=== PATIENT | female | born 1955 | race Caucasian/White ===

== ENCOUNTER 2019-05-19 18:27 | Inpatient (IN) | payer MEDICAID, SELFPAY ==
[2019-05-19] VITALS (39 sets, daily range): BP systolic 130–170; BP diastolic 51–80; PULSE 72–84; RESP 14–19; TEMP 36.9–37; O2SAT 91–99; BMI 54.8
--- NOTE | 2019-05-19 18:38 | ED_ITS ---
Entered by Ariella Camilo, acting as scribe for Nathan Pickens DO HPI - Abdominal Pain General: Chief Complaint: Abdominal Pain Stated Complaint: ABD PAIN Time Seen by Provider: 05/19/19 18:29 Source: patient Mode of arrival: EMS Limitations: no limitations History of Present Illness: HPI narrative: 63 yo Female presents to ED with complaint of right lower quadrant pain. Pt states that this started this morning and then she drove 230 miles. Pt states that she couldn't walk or stand up straight so she called an ambulance. Pt states that she thought it might be appendicitis at first but once she thought about it, she moved more in the last few days than she has moved in the last 2 years. Pt only has pain when she moves. MD elicited complaint: abdominal pain Pertinent past history: none Onset (ago): hour(s) (this morning) Pain Consistency: constant Location: RLQ Radiation: none Exacerbating factors: movement Relieving factors: rest Associated Symptoms: Reports no associated symptoms; Denies chills, dysuria, fever(s), nausea and vomiting Review of Systems General: Reports: 10 or more systems reviewed and unremarkable except in HPI and below Const: Denies: fever, chills or body aches Eyes: Denies: change in vision, blurry vision or blind spots ENMT: Denies: throat pain, enlarged tonsils, painful swallowing, hoarseness or mouth pain Card: Denies: chest pain, palpitations, irregular heart rhythm, edema or swelling of feet/ankles Resp: Denies: shortness of breath, productive cough or non-productive cough GI: Reports: abdominal pain; Denies: nausea or vomiting : Denies: flank pain, difficulty urinating, painful urination, urinary frequency or urinary urgency Musc: Denies: neck pain, back pain, extremity pain, extremity swelling, joint pain or joint swelling Skin/Breast: Denies: rash, itching or redness Neuro: Denies: headache, numbness in extremities or weakness in extremities Endo: Denies: excessive urination, excessive thirst or tired all the time Manish/Lymph: Denies: easy bruising or easy bleeding PFSH ED PFSH: Statuses (acute, chronic, etc) shown below reflect problem list status as previously entered and may not be historically accurate Medical History (Updated 01/18/20 @ 21:06 by Nathan Pickens DO) Angina pectoris (Acute) Asthma (Acute) CAD (coronary artery disease) (Acute) Cholecystitis (Acute) Chronic back pain (Acute) Depression (Acute) Diabetes (Acute) Heart disease (Acute) HTN (hypertension) (Acute) Myocardial infarction (Acute) Surgical History History of heart artery stent (Acute) Social History Smoking and tobacco status: former smoker Physical Exam Const: COMMON NORMALS: no apparent distress, average body habitus, oriented x3, no limitations, healthy appearing, alert and well nourished HENMT: COMMON NORMALS: normocephalic, head/scalp atraumatic, hearing grossly normal bilaterally, external ears normal, EAC's normal, TM's normal bilaterally, external nose normal, nasal mucous membranes and turbinates normal, moist oral mucous membranes, oropharynx normal, dentition normal and gingiva normal HEAD & SCALP: normocephalic and atraumatic NOSE: external nose normal and nasal mucous membranes and turbinates normal EXTERNAL EAR: Yes external ears normal EXTERNAL AUDITORY CANAL: EAC's normal TYMPANIC MEMBRANE: TM's normal bilaterally Eye: COMMON NORMALS: PERRL, EOMs intact bilaterally, conjunctivae normal, no scleral icterus, no papilledema, normal visual grant by confrontation and fundi normal bilaterally CONJUNCTIVA: Yes conjunctivae normal PUPIL: Yes PERRL DIRECT OPHTHALMOSCOPY: Yes no papilledema and Yes fundi normal bilaterally Neck/C-Spine: COMMON NORMALS: full ROM, no lymphadenopathy, supple, no meningeal signs, no JVD, thyroid normal and no carotid bruits THYROID: thyroid normal Chest: COMMONS NORMALS: inspection of chest normal and palpation of chest n ormal Resp: COMMON NORMALS: normal respiratory effort, no retractions, no use of accessory muscles, clear to auscultation bilaterally and percussion normal AUSCULTATION: clear to auscultation bilaterally PERCUSSION: percussion normal Cardio: COMMON NORMALS: no JVD, regular rate, regular rhythm, S1 normal heart sound, S2 normal heart sound, no gallops, no clicks, no murmurs, no rub and peripheral pulses 2+ throughout RATE: regular rate RHYTHM: regular rhythm HEART SOUNDS: S1 normal and S2 normal PERIPHERAL PULSES: pulses 2+ t hroughout GI: COMMON NORMALS: normal to inspection, nondistended, normoactive bowel sounds, soft to palpation, non-tender, no hepatosplenomegaly, no masses and no bruits PALPATION: Yes soft and Yes no hepatosplenomegaly : COMMON NORMALS: Yes no CVA tenderness and Yes external appearance normal BLADDER/KIDNEY EXAM: Yes no CVA tenderness Back/Pelvis: COMMON NORMALS: no CVA tenderness, thoracic and lumbar spine normal to inspection, no thoracic nor lumbar tenderness, thoraco-lumbar ROM normal and straight leg raise negative bilaterally Extremity: COMMON NORMALS: normal to inspection, full ROM, normal capillary refill, no joint enlargement, no clubbing, cyanosis or edema, no calf tenderness and no pedal edema Neuro: COMMON NORMALS: oriented x3 SENSORIUM/ORIENTATION: Yes alert MENINGEAL SIGNS: Yes no meningeal signs Skin: COMMON NORMALS: no rashes or lesions noted, no wounds, skin turgor normal, no jaundice, no petechiae and no mottling GENERAL SKIN EXAM: no dom hes or lesions noted and turgor normal Course Vital Signs: Vital signs: Vital Signs Temperature 98.4 F 05/19/19 18:34 Pulse Rate 82 05/19/19 20:50 Respiratory Rate 16 05/19/19 20:50 Blood Pressure 147/59 05/19/19 20:50 Pulse Oximetry 97 05/19/19 20:50 MDM - Abdominal Pain Lab Data: Labs: Lab Results 05/19/19 05/19/19 05/19/19 Range/Units 18:54 18:54 19:25 WBC 10.0 (4.0-10.0) 10^3/ uL RBC 3.62 L (4.1-5.3) 10^6/u L Hgb 11.1 L (11.5-15.3) g/dL Hct 36.2 L (37.0-47.0) % MCV 100.0 H (81-99) fL MCH 30.7 (28.0-34.0) pg MCHC 30.7 (30.0-36.0) g/dL RDW 12.6 (12.1-15.1) % Plt Count 198 (130-400) 10^3/c mm MPV 10.0 (7.4-10.4) fL Neut % (Auto) 63.9 % Lymph % (Auto) 25.5 % [place] % (Auto) 7.6 % Eos % (Auto) 2.3 % Baso % (Auto) 0.3 % Neut # (Auto) 6.4 (1.8-7.7) 10^3/u L Lymph # (Auto) 2.6 (0.8-4.8) 10^3/u L [place] # (Auto) 0.8 (0.2-0.9) 10^3/u L Eos # (Auto) 0.2 (0.0-0.8) 10^3/u L Baso # (Auto) 0.0 (0.0-0.1) 10^3/u L Nucleated RBC % (a uto) 0 % Nucleated RBCs # 0.0 /100WBC Sodium 136 (136-145) mmol/L Potassium 4.5 (3.5-5.1) mmol/L Chloride 98 (98-107) mmol/L Carbon Dioxide 26 (22-29) mmol/L Anion Gap 16.5 (5-19) BUN 36 H (8-23) mg/dL Creatinine 1.3 H (0.5-0.9) mg/dL GFR Calculation 41.4 L (90-130) mL/min Glucose 257 H (74-106) mg/dL Calcium 9.6 (8.8-10.2) mg/Dl Total Bilirubin 0.3 (0.15-1.2) mg/dL AST 15 (0-32) U/L ALT 12 (0-33) U/L Alkaline Phosphata se 77 (35-105) IU/L Total Protein 6.9 (6.6-8.7) g/dL Albumin 3.5 (3.5-5.2) g/dL Globulin 3.4 (1.3-4.6) g/dL Urine Color Yellow (Yellow) Urine Appearance Cloudy (CLEAR) Urine pH 5 (5-7) Ur Specific Gravit y 1.020 (1.005-1.030) Urine Protein Trace (Negative) Urine Glucose (UA) 1+ (Normal) Urine Ketones 1+ H (Negative) Urine Occult Blood 3+ H (Negative) Urine Nitrate Negative (Negative) Urine Bilirubin Neg (NEGATIVE) Urine Urobilinogen Norm (Negative) mg/dL Ur Leukocyte Tiffanie ase Negative (Negative) Urine RBC 80-100 H (0-2) /hpf Urine WBC 5-10 H (0-5) /hpf Ur Squamous Epith Cells 5-10 H (0-5) Urine Bacteria 1+ H (NONE) Imaging Data ^: CT Abd/Pel: Radiologist's impression: [address] [address] [address] Scan Report Signed Patient: Brooke Whitmore #: [id number] : 6Acct#:[id number] Age/Sex: 63 / FADM Date: 05/19/19 Loc: ERRoom/Bed: Attending Dr: Ordering Provider/Ordering MD: Nathan Pickens DO Date of Service: 05/19/19 Procedure(s): CT abdomen pelvis w con* [id number] Accession Number(s): [id number] Report Number: [id number] PROCEDURE INFORMATION: Exam: CT Abdomen And Pelvis With Contrast Exam date and time: 05/19/2019 6:48 PM Age: 63 years old Clinical indication: Abdominal pain; Localized; Right lower quadrant (rlq); Prior surgery; Surgery date: 6+ months; Additional info: Rlq abd pain TECHNIQUE: Imaging protocol: Computed tomography of the abdomen and pelvis with intravenous contrast. Total DLP: 2034.47 mGy-cm Radiation optimization: All CT scans at this facility use at least one of these dose optimization techniques: automated exposure control; mA and/or kV adjustment per patient size (includes targeted exams where dose is matched to clinical indication); or iterative reconstruction. Contrast material: VISI; Contrast volume: 95 ml; Contrast route: IV; COMPARISON: [place] [id number] 06/11/2013 5:23 PM FINDINGS: Lungs: 7 mm ground-glass nodule in the posterior left lower lobe. 10 mm nodule in the lingula. 3 mm nodule in the right lower lobe. These nodules are not significantly changed. Liver: Diffuse fatty infiltration of the liver. Gallbladder and bile ducts: Normal. No calcified stones. No ductal dilation. Pancreas: Normal. No ductal dilation. Spleen: Normal. No splenomegaly. Adrenals: 2.4 cm nodule in the right adrenal gland. The left adrenal is normal. Kidneys and ureters: Chronic perinephric stranding. The kidneys are otherwise normal. Stomach and bowel: Unremarkable. No obstruction. No mucosal thickening. Appendix: The appendix is dilated with an outer diameter of up to 14 mm. Mild periappendiceal fat stranding. Intraperitoneal space: Unremarkable. No free air. No significant fluid collection. Vasculature: Unremarkable. No abdominal aortic aneurysm. Lymph nodes: Unremarkable. No enlarged lymph nodes. Bladder: Unremarkable as visualized. Reproductive: Unremarkable as visualized. Bones/joints: Unremarkable. No acute fracture. Soft tissues: Unremarkable. CT/CT abdomen pelvis w con* [id number] IMPRESSION: 1. Mild acute appendicitis. 2. Bilateral pulmonary nodules are not significantly changed since 2013 and are considered benign. 3. 2.4 cm nodule in the right adrenal gland measures slightly larger but is consistent with a benign adenoma given the low density numbers on the prior noncontrast CT. Radiation Dose CTDIVOL = (mGy): DLP = 2034.47 (mGy-cm) Dictated By:Keron Moreno Signed By:Keron MorenoSiwero Date/Time:05/19/192034 DD/ 32 Discharge Plan Discharge Clinical Impression: Acute appendicitis Qualifiers: Acute appendicitis type: unspecified acute appendicitis type Qualified Code(s): K35.80 - Unspecified acute appendicitis Condition: Fair Referrals: Rupa Price DPM [Family Provider] - Patient Instructions: Appendicitis (GEN) Coding Level of Care Code ED Analyst Microbiology Lab for Chg Fwd Exam Problem Focused The documentation recorded by the Ton rollins Carmen, accurately reflects the service I personally performed and the decisions made by Celio velásquez Donald P, DO May 19, 2019 18:27
--- NOTE | 2019-05-19 18:46 | CTR_ITS ---
PROCEDURE INFORMATION: Exam: CT Abdomen And Pelvis With Contrast Exam date and time: 05/19/2019 6:48 PM Age: 63 years old Clinical indication: Abdominal pain; Localized; Right lower quadrant (rlq); Prior surgery; Surgery date: 6+ months; Additional info: Rlq abd pain TECHNIQUE: Imaging protocol: Computed tomography of the abdomen and pelvis with intravenous contrast. Total DLP: 2034.47 mGy-cm Radiation optimization: All CT scans at this facility use at least one of these dose optimization techniques: automated exposure control; mA and/or kV adjustment per patient size (includes targeted exams where dose is matched to clinical indication); or iterative reconstruction. Contrast material: VISI; Contrast volume: 95 ml; Contrast route: IV; COMPARISON: CT Abdomen/Pelvis [facility] [id number] 06/11/2013 5:23 PM FINDINGS: Lungs: 7 mm ground-glass nodule in the posterior left lower lobe. 10 mm nodule in the lingula. 3 mm nodule in the right lower lobe. These nodules are not significantly changed. Liver: Diffuse fatty infiltration of the liver. Gallbladder and bile ducts: Normal. No calcified stones. No ductal dilation. Pancreas: Normal. No ductal dilation. Spleen: Normal. No splenomegaly. Adrenals: 2.4 cm nodule in the right adrenal gland. The left adrenal is normal. Kidneys and ureters: Chronic perinephric stranding. The kidneys are otherwise normal. Stomach and bowel: Unremarkable. No obstruction. No mucosal thickening. Appendix: The appendix is dilated with an outer diameter of up to 14 mm. Mild periappendiceal fat stranding. Intraperitoneal space: Unremarkable. No free air. No significant fluid collection. Vasculature: Unremarkable. No abdominal aortic aneurysm. Lymph nodes: Unremarkable. No enlarged lymph nodes. Bladder: Unremarkable as visualized. Reproductive: Unremarkable as visualized. Bones/joints: Unremarkable. No acute fracture. Soft tissues: Unremarkable. CT/CT abdomen pelvis w con* [id number] IMPRESSION: 1. Mild acute appendicitis. 2. Bilateral pulmonary nodules are not significantly changed since 2013 and are considered benign. 3. 2.4 cm nodule in the right adrenal gland measures slightly larger but is consistent with a benign adenoma given the low density numbers on the prior noncontrast CT. Radiation Dose CTDIVOL = (mGy): DLP = 2034.47 (mGy-cm)
[2019-05-19] MEDS: iohexol 300 mg/mL 100 mL Btl IV (18:58)
--- NOTE | 2019-05-19 19:03 | PC.NURSE ---
REPORT RECEIVED FROM ALCIDES GOMEZ AND CARE TRANSFERRED TO ALCIDES XIAO
[2019-05-19 19:20] LABS: Basophils % 0.3 %; Eosinophils # 0.2 10^3/uL (0.0-0.8); Eosinophils % 2.3 %; Hematocrit 36.2 % (37.0-47.0); Hemoglobin 11.1 g/dL (11.5-15.3); Lymphocytes # 2.6 10^3/uL (0.8-4.8); Lymphocytes % 25.5 %; Mean Corpuscular HGB Conc 30.7 g/dL (30.0-36.0); Mean Corpuscular Hemoglobin 30.7 pg (28.0-34.0); Monocytes # 0.8 10^3/uL (0.2-0.9); Monocytes % 7.6 %; Neutrophils # 6.4 10^3/uL (1.8-7.7); Neutrophils % 63.9 %; Nucleated Red Blood Cells % 0 %; Platelet Count 198 10^3/cmm (130-400); Red Blood Count 3.62 10^6/uL (4.1-5.3); Red Cell Distribution Width 12.6 % (12.1-15.1)
[2019-05-19] MEDS: sodium chloride 0.9% 500 ML IV (19:26)
[2019-05-19 19:28] LABS: Alanine Aminotransferase 12 U/L (0-33); Albumin Level 3.5 g/dL (3.5-5.2); Alkaline Phosphatase 77 IU/L (35-105); Anion Gap 16.5 (5-19); Aspartate Amino Transferase 15 U/L (0-32); Blood Urea Nitrogen 36 mg/dL (8-23); Calcium 9.6 mg/Dl (8.8-10.2); Carbon Dioxide 26 mmol/L (22-29); Chloride 98 mmol/L (98-107); Globulin 3.4 g/dL (1.3-4.6); Glomerular Filtration Rate 41.4 mL/min (90-130); Glucose 257 mg/dL (74-106); Potassium 4.5 mmol/L (3.5-5.1); Sodium 136 mmol/L (136-145); Total Bilirubin 0.3 mg/dL (0.15-1.2); Total Protein 6.9 g/dL (6.6-8.7)
[2019-05-19] MEDS: iodixanol 320 mg/mL 100mL Btl IV (19:43)
--- NOTE | 2019-05-19 19:54 | PC.NURSE ---
PATIENT TO CT
[2019-05-19 20:23] LABS: Add Urine Microscopic? YES; Bilirubin Urine Neg (NEGATIVE); Blood Urine 3+ (Negative); Glucose Urine UA 1+ (Normal); Ketones Urine 1+ (Negative); Leukocyte Esterase Urine Negative (Negative); Nitrate Urine Negative (Negative); Protein Urine Trace (Negative); Urine Appearance Cloudy (CLEAR); Urine Color Yellow (Yellow); Urobilinogen Urine Norm (Negative); pH Urine 5 (5-7)
[2019-05-19] MEDS: sodium chloride 0.9% 1,000 ML 999 ML IV (20:24)
[2019-05-19 20:25] LABS: Add Urine Culture? Yes; Bacteria Urine 1+; RBC Urine 80-100 /hpf (0-2)
[2019-05-19] MEDS: sodium chloride 0.9% 1,000 ML 125 ML IV (22:02)
--- NOTE | 2019-05-19 22:17 | P.CONIM_ITS ---
Providers/Reason For Consult Consulting Physican/Specialty*: Kristen Martino MD. Hospitalist Reason for Consult*: Medical management Attending Physician: Nando Raygoza MD History of Present Illness History of Present Illness Yuridia Whitmore is a 63 year old female with PMHx of CAD s/p stenting x 2, HTN, Hyperlipidemia, IDDM type II, CKD stage 2, Morbid obesity, Chronic back pain, JODI, Depression; presents from home with complaints of right lower quadrant pain that started earlier today. When the pain began she thought it is because she has been so active over the past 2 days as she is preparing to move out of the area and to [place] so has been moving things and visiting several of her friends; she may have strained or pulled a muscle. However, when the pain persisted she got anxious and was concerned that she might have appendicitis so presented to the ER. Patient is known to me from a previous admission in March 2019. Her work-up today shows a normal white count at 10, hemoglobin of 11.1, BUN of 36, creatinine of 1.3, blood sugar of 257, urinalysis that is indicative of dehydration and borderline for infection. She has had a CT of the abdomen and pelvis done showing mild acute appendicitis. ER physician has spoken to the surgeon on-call Dr. Raygoza and plan is for laparoscopic appendectomy tomorrow a.m. so patient will be kept n.p.o. He also recommended giving Zosyn in anticipation of the surgery. She is in some pain but not overtly uncomfortable currently while in the ER. Her vital signs have been stable. She did receive contrast for her CT of the abdomen and pelvis so we will need to closely monitor her kidney function. Appetite has been normal and her last meal was approximately 1500. She denies any fever/chills, changes in her urination or bowel habits. She has had abdominal surgery in the past consisting of a laparoscopic cholecystectomy without complication. Review of Systems Const: Reports: fatigue; Denies: fever or chills Eyes: Denies: change in vision ENMT: Reports: dry mouth Card: Denies: chest pain, swelling of feet/ankles or lightheadedness Resp: Denies: shortness of breath GI: Reports: abdominal pain (Right lower quadrant) and nausea; Denies: vomiting, vomiting blood, diarrhea or blood in stool : Denies: difficulty urinating, painful urination, urinary frequency or blood in urine Musc: Denies: back pain Skin/Breast: Denies: rash Neuro: Denies: numbness in extremities, weakness in extremities or difficulty walking Psych: Denies: anxiety Meds/Allergies Home Medications and Allergies Home Medications Medication Instructions Recorded Confirmed Type atenolol See Rx Instructions .ROUTE .COMPLEX 05/19/19 05/19/19 History famotidine 20 mg PO DAILY 05/19/19 05/19/19 History furosemide [Lasix] 40 mg PO QAM 05/19/19 05/19/19 History insulin detemir U-100 [Levemir 120 unit SUBCUT DAILY 05/19/19 05/19/19 History U-100 Insulin] insulin lispro [Humalog U-100 See Rx Instructions .ROUTE .COMPLEX 05/19/19 05/19/19 History Insulin] Allergies Allergy/AdvReac Type Severity Reaction Status Date / Time butorphanol [From Stadol] Allergy ADR-Halluci Verified 05/19/19 18:39 nating ketorolac [From Toradol] Allergy Unknown Verified 05/19/19 18:39 PFSH Acute PFSH: Statuses (acute, chronic, etc) shown below reflect problem list status as previously entered and may not be historically accurate Medical History (Updated 05/20/19 @ 02:58 by Kristen Martino MD) Angina pectoris (Acute) Asthma (Acute) CAD (coronary artery disease) (Acute) Cholecystitis (Acute) Chronic back pain (Acute) CKD (chronic kidney disease), stage II (Acute) Depression (Acute) Diabetes (Acute) Insulin-dependent HTN (hypertension) (Acute) Hyperlipidemia (Acute) Morbid obesity (Acute) Myocardial infarction (Acute) Surgical History (Updated 05/20/19 @ 02:55 by Kristen Martino MD) History of heart artery stent (Acute) Status post stenting x2 in 2017 Hx of cholecystectomy (Acute) Family History (Updated 05/20/19 @ 02:56 by Kristen Martino MD) Other CAD (coronary artery disease) Hypertension Social History (Updated 05/20/19 @ 02:56 by Kristen Martino MD) Smoking and tobacco status: former smoker Alcohol intake: never Substance/Drug Use: never Lives independently: Yes Vitals/I&O/Wt Last Vital Signs Temp 98.4 F 05/19/19 18:34 Pulse 84 05/19/19 21:35 Resp 16 05/19/19 21:35 BP 143/55 05/19/19 22:00 Pulse Ox 95 05/19/19 22:00 05/19/19 05/19/19 05/19/19 06:59 14:59 22:59 Intake Total 483.333 / 483.333 Balance 483.333 / 483.333 Weight last 48 hrs Weight 136.078 kg Physical Exam Const: COMMON NORMALS: no apparent distress and oriented x3 GENERAL APPEARANCE: cooperative and comfortable NUTRITIONAL APPEARANCE: obese morbidly obese ORIENTATION/CONSCIOUSNESS: Yes awake HENMT: COMMON NORMALS: normocephalic, head/scalp atraumatic, hearing grossly normal bilaterally and moist oral mucous membranes HEAD & SCALP: normocephalic and atraumatic Eye: COMMON NORMALS: PERRL, EOMs intact bilaterally and conjunctivae normal CONJUNCTIVA: Yes conjunctivae normal PUPIL: Yes PERRL Neck/C-Spine: COMMON NORMALS: full ROM GENERAL: Yes normal visual inspection and Yes trachea midline Resp: COMMON NORMALS: normal respiratory effort, no retractions, no use of accessory muscles and clear to auscultation bilaterally EFFORT & INSPECTION: Yes able to speak in complete sentences, Yes symmetric chest movement and No tachypneic AUSCULTATION: clear to auscultation bilaterally Cardio: COMMON NORMALS: regular rate, regular rhythm, S1 normal heart sound, S2 normal heart sound and no murmurs RATE: regular rate RHYTHM: regular rhythm HEART SOUNDS: S1 normal and S2 normal GI: COMMON NORMALS: normal to inspection, nondistended, normoactive bowel sounds and soft to palpation PALPATION: Yes soft, Yes tender Details: RLQ, No guarding, No rigid, No ascites present and No rebound tenderness present Extremity: COMMON NORMALS: normal to inspection, full ROM and no clubbing, cyanosis or edema; negative for no pedal edema Neuro: COMMON NORMALS: oriented x3, moves all extremities, no focal motor deficits and no sensory deficits noted Psych: COMMON NORMALS: mental status grossly normal, thought process normal, cooperative, affect normal and speech normal SPEECH: Yes normal speech THOUGHT PROCESS: normal thought process Skin: COMMON NORMALS: no rashes or lesions noted, no jaundice, no petechiae and no mottling GENERAL SKIN EXAM: no rashes or lesions noted A&P Assessment and plan (1) Acute appendicitis: -Evidence of acute appendicitis on imaging which correlates with patient's abdominal pain localized to the right lower quadrant -N.p.o. after midnight, OR in a.m. -Dr. Raygoza will evaluate in a.m. -IVF hydration -Antiemetics, pain control as needed -Monitor vital signs -has received Zosyn -on heparin for DVT ppx; will hold AM dose -Revised Cardiac Risk Index of 1 point which correlates with a 6% 30-day risk of , [place] or cardiac arrest. Medically cleared for lap appy. Status: Acute Qualifiers: Acute appendicitis type: unspecified acute appendicitis type Qualified Code(s): K35.80 - Unspecified acute appendicitis Code(s): K35.80 - Unspecified acute appendicitis (2) Diabetes: -has hx of IDDM type II; last A1c-8.1 -add D5 to IVF to prevent hypoglycemia while NPO -Accucheks, ISS -resume diabetic diet when appropriate Status: Acute Qualifiers: Diabetes mellitus type: type 2 Diabetes mellitus nursing home insulin use: with termite control servicer use Diabetes mellitus complication status: without complication Qualified Code(s): E11.9 - Type 2 diabetes mellitus without complications; Z79.4 - prison (current) use of insulin Code(s): E11.9 - Type 2 diabetes mellitus without complications (3) CKD (chronic kidney disease), stage II: -has known hx of CKD stage 2; baseline Cr-0.9-1.0 -monitor renal function -renally dose meds, avoid nephrotoxins Status: Acute Code(s): N18.2 - Chronic kidney disease, stage 2 (mild) (4) Morbid obesity: -BMI-55 kg/m2 Status: Acute Code(s): E66.01 - Morbid (severe) obesity due to excess calories (5) Hyperlipidemia: Status: Acute Qualifiers: Hyperlipidemia type: unspecified Qualified Code(s): E78.5 - Hyperlipidemia, unspecified Code(s): E78.5 - Hyperlipidemia, unspecified (6) HTN (hypertension): -monitor vital signs -hold oral antihypertensives for now, can use PRN hydralazine while NPO Status: Acute Qualifiers: Hypertension type: essential hypertension Qualified Code(s): I10 - Essential (primary) hypertension Code(s): I10 - Essential (primary) hypertension Additional A&P Information -hx of CAD s/p stenting x 2 (2017): Echo (2017): EF=60%, no RWMA -Chronic back pain, DJD -JODI; questionable compliance with CPAP -Depression -DVT ppx with heparin -GI ppx with Famotidine -Dispo: home -Code status: FULL code Thank you for this consult, will continue to follow along. Consult Attestations Medical Necessity Statement: Yuridia Whitmore's hospital stay will require greater than 2 midnights for management of acute appendicitis including surgical intervention and appropriate postop care. Time Spent in Patient Care: Greater than 35 minutes (>than 50% of time spent in counselling and/or direct pt care on unit) . Coding Level of Care Code Acute Packing Machine Operator for g Fwd Diagnoses Acute appendicitis K35.80 Acute appendicitis type: unspecified acute appendicitis type Diabetes E11.9; Z79.4 Diabetes mellitus type: type 2 Diabetes mellitus nursing home insulin use: with termite control servicer use Diabetes mellitus complication status: without complication CKD (chronic kidney disease), stage II N18.2 Morbid obesity E66.01 Hyperlipidemia E78.5 Hyperlipidemia type: unspecified HTN (hypertension) I10 Hypertension type: essential hypertension
--- NOTE | 2019-05-19 22:17 | PC.NURSE ---
PATIENT STATES HER PAIN IS A 0 IF SHE DOESN'T MOVE AT ALL BUT IF SHE MOVES THEN IT IS A 6
[2019-05-19 22:35] LABS: Glucose Point of Care 227 mg/dL (70-110)
[2019-05-19] MEDS: heparin 5,000 unit/mL INJ 1 mL 5000 UNIT SUBCUT (22:35)
[2019-05-19] MEDS: insulin regular-human 10 UNIT in SYRINGE 1 EACH SUBCUT (23:08)
[2019-05-19 23:33] LABS: INR 0.95 (0.8-1.2)
[2019-05-19] MEDS: dextrose 5%-sod chloride 0.45% 1,000 ML 100 ML IV (23:55)
[2019-05-19] MEDS: piperacillin-tazobactam 3.375 GM in sodium chloride 0.9% (plus) 50 ML IV (23:56)
[2019-05-19] MEDS: atenolol 50 mg Tablet 25 MG PO (23:57)
[2019-05-20] VITALS (18 sets, daily range): BP systolic 104–164; BP diastolic 51–79; PULSE 62–76; RESP 16–20; TEMP 36.3–37.1; O2SAT 92–100
[2019-05-20] MEDS: ondansetron 2 mg/ML SDV 2 mL 4 MG IVP ×3 (04:41→21:56)
[2019-05-20] MEDS: morphine 4 mg/mL SDV 1 mL IVP ×2 (04:42→21:48)
[2019-05-20 05:54] LABS: Basophils % 0.3 %; Eosinophils # 0.2 10^3/uL (0.0-0.8); Eosinophils % 3.1 %; Hematocrit 31.4 % (37.0-47.0); Hemoglobin 9.8 g/dL (11.5-15.3); Lymphocytes # 1.9 10^3/uL (0.8-4.8); Lymphocytes % 25.9 %; Mean Corpuscular HGB Conc 31.2 g/dL (30.0-36.0); Mean Corpuscular Hemoglobin 29.3 pg (28.0-34.0); Mean Platelet Volume 10.5 fL (7.4-10.4); Monocytes # 0.7 10^3/uL (0.2-0.9); Monocytes % 9.4 %; Neutrophils # 4.5 10^3/uL (1.8-7.7); Nucleated Red Blood Cells % 0 %; Platelet Count 194 10^3/cmm (130-400); Red Blood Count 3.34 10^6/uL (4.1-5.3); Red Cell Distribution Width 12.5 % (12.1-15.1); White Blood Count 7.4 10^3/uL (4.0-10.0)
--- NOTE | 2019-05-20 06:07 | PM.HP ---
Providers/Chief Complaint Admitting Physician: Nando Raygoza MD Chief Complaint: ABD PAIN History of Present Illness Chief complaint ; Abdominal pain HPI ; Yuridia Whitmore is a pleasant 63 year old female patient morbidly obese with associated medical comorbidities in the form of insulin-dependent diabetes mellitus and coronary artery disease,presented to the emergency department with history of acute onset of abdominal pain about 9:00 in the morning yesterday towards her right lower quadrant associated with nausea, as the pain got worse she came to the hospital for further evaluation, where CT scan of the abdomen and pelvis was done and showed acute appendicitis. Patient denies any other symptoms in the form of fevers chills vomiting or change in bowel habits or even dysuria spite of the fact there is some RBCs in her urine. General surgery was consulted for further evaluation and potential intervention and hospitalist service was consulted for management of her medical comorbidities preoperatively. Review of Systems Const: Denies: fever, chills, body aches or malaise Card: Denies: chest pain Resp: Denies: shortness of breath GI: Reports: abdominal pain and nausea; Denies: vomiting, difficulty swallowing, diarrhea, constipation or blood in stool Neuro: Denies: headache Psych: Denies: anxiety or depression Medications/Allergies Home Medications Medication Instructions Recorded Confirmed Last Taken Type atenolol See Rx Instructions .ROUTE .COMPLEX 05/19/19 05/19/19 05/19/19 History famotidine 20 mg PO DAILY 05/19/19 05/19/19 05/19/19 History furosemide [Lasix] 40 mg PO QAM 05/19/19 05/19/19 05/19/19 History insulin detemir U-100 [Levemir 120 unit SUBCUT DAILY 05/19/19 05/19/19 05/19/19 History U-100 Insulin] insulin lispro [Humalog U-100 See Rx Instructions .ROUTE .COMPLEX 05/19/19 05/19/19 05/19/19 History Insulin] Allergies Allergy/AdvReac Type Severity Reaction Status Date / Time butorphanol [From Stadol] Allergy ADR-Halluci Verified 05/19/19 18:39 nating ketorolac [From Toradol] Allergy Unknown Verified 05/19/19 18:39 PFSH Acute PFSH: Statuses (acute, chronic, etc) shown below reflect problem list status as previously entered and may not be historically accurate Medical History Angina pectoris (Acute) Asthma (Acute) CAD (coronary artery disease) (Acute) Cholecystitis (Acute) Chronic back pain (Acute) CKD (chronic kidney disease), stage II (Acute) Depression (Acute) Diabetes (Acute) Insulin-dependent HTN (hypertension) (Acute) Hyperlipidemia (Acute) Morbid obesity (Acute) Myocardial infarction (Acute) Surgical History History of heart artery stent (Acute) Status post stenting x2 in 2017 Hx of cholecystectomy (Acute) Family History Other CAD (coronary artery disease) Hypertension Social History Smoking and tobacco status: former smoker Alcohol intake: never Substance/Drug Use: never Lives independently: Yes Vitals/I&O/Wt Last Vital Signs Temp 97.8 F 05/20/19 03:09 Pulse 67 05/20/19 03:09 Resp 20 H 05/20/19 04:42 BP 164/77 05/20/19 03:09 Pulse Ox 95 05/20/19 03:09 05/19/19 05/19/19 05/20/19 14:59 22:59 06:59 Intake Total 483.333 / 483.333 110.1 / 593.433 Output Total 275 / 275 Balance 483.333 / 483.333 -164.9 / 318.433 Weight last 48 hrs Weight 313 lb 8 oz Weight 300 lb Physical Exam Const: COMMON NORMALS: no apparent distress and oriented x3 GENERAL APPEARANCE: cooperative ORIENTATION/CONSCIOUSNESS: Yes awake, Yes oriented to person, Yes oriented to place and Yes oriented to time HENMT: COMMON NORMALS: normocephalic HEAD & SCALP: normocephalic Eye: COMMON NORMALS: PERRL and no scleral icterus PUPIL: Yes PERRL Lymph: LYMPHATIC: no lymphadenopathy noted Chest: COMMONS NORMALS: inspection of chest normal Resp: COMMON NORMALS: normal respiratory effort and clear to auscultation bilaterally AUSCULTATION: clear to auscultation bilaterally Cardio: COMMON NORMALS: S1 normal heart sound and S2 normal heart sound; negative for no murmurs HEART SOUNDS: S1 normal and S2 normal GI: COMMON NORMALS: soft to palpation; negative for no hepatosplenomegaly INSPECTION: Yes normal to inspection PALPATION: Yes soft, No firm, Yes tender (Maximal tenderness at McBurney's point consistent with acute appendicitis) Details: RLQ, No guarding, No rigid and No no hepatosplenomegaly Neuro: COMMON NORMALS: oriented x3 SENSORIUM/ORIENTATION: Yes oriented to person, Yes oriented to place and Yes oriented to time Psych: COMMON NORMALS: mental status grossly normal Skin: COMMON NORMALS: no rashes or lesions noted GENERAL SKIN EXAM: no rashes or lesions noted Data : 05/20/19 05:05 05/19/19 18:54 A&P Assessment and plan (1) Acute appendicitis: After thorough history physical examination and reviewing the chart and images with my personal interpretion, I counseled the patient for laparoscopic appendectomy possible open today. Indications, risks, benefits and alternatives were all discussed with the patient and did agree to proceed. Informed consent per chart Zosyn 3.375 mg every 8 hours 5000 heparin subcu every 8 hours SCDs I's and O's I do appreciate hospitalist service input with regard to patient's medical management Status: Acute Qualifiers: Acute appendicitis type: unspecified acute appendicitis type Qualified Code(s): K35.80 - Unspecified acute appendicitis Code(s): K35.80 - Unspecified acute appendicitis Attestations Medical Necessity Statement*: Observation status Coding Level of Care Code Acute Marine Equipment Design Engineer for [facility] Fwd Exam Problem Focused Diagnoses Acute appendicitis K35.80 Acute appendicitis type: unspecified acute appendicitis type Time Spent (min) 15
[2019-05-20] MEDS: heparin 5,000 unit/mL INJ 1 mL 5000 UNIT SUBCUT ×2 (06:30→21:37)
[2019-05-20 06:54] LABS: Anion Gap 13.3 (5-19); Blood Urea Nitrogen 24 mg/dL (8-23); Calcium 8.6 mg/Dl (8.8-10.2); Carbon Dioxide 26 mmol/L (22-29); Chloride 104 mmol/L (98-107); Glucose 211 mg/dL (74-106); Potassium 4.3 mmol/L (3.5-5.1); Sodium 139 mmol/L (136-145)
[2019-05-20] MEDS: scopolamine 1.5 Patch 1 PATCH TRANSDERMA (07:06)
--- NOTE | 2019-05-20 07:27 | PC.NURSE ---
PREOP PT TAKEN DOWN TO SURGERY.
--- NOTE | 2019-05-20 07:39 | P.ANES_ITS ---
Pre-Anesthetic Assessment Pre-Anesthetic Assessment: Height/Weight: Height 1.57 m Weight 138.799 kg Temp Pulse Resp BP Pulse Ox 97.8 F 67 20 H 164/77 95 05/20/19 03:09 05/20/19 03:09 05/20/19 04:42 05/20/19 03:09 05/20/19 03:09 Preop Diagnosis: Acute appendicitis Proposed Procedure: Operation Date: 05/20/19 08:20 Proposed Procedures p Laparoscopic Appendectomy, poss. open(Not Applicable) - Nando Raygoza MD Was Beta Anju taken within 24 hours: Yes Last intake: Intake Last Liquid Date 05/19/19 Last Liquid Time 23:59 Last Solid Date 05/19/19 Last Solid Time 15:00 Exam: Pre-Anes Outpt Exam: alert, oriented x 3, clear to auscultation bilaterally and regular rate & rhythm CV/HEM: CV/HEM: CAD and HTN Comments: rx'd x [address] '16, stents x2, angioplasty x 1, Sinnha no changes : : Chronic renal Insufficiency Hepatic: Hepatic: Hepatitis Comments: Hepatitis A without sequale GI: Comments: acute appendicitis Metabolic: Metabolic: DM Comments: rx'd x 30 years, normally 150-200 Musc/skel: Musc/skel: Lower Back Pain Comments: right radiculopathy Anesthetic Plan: ASA status: III Anesthesia: General Meds/Allergies Current Medications: Current Medications Generic Name Dose Route Start Last Admin Trade Name Freq PRN Reason Stop Dose Admin Atenolol 25 mg 05/19/19 23:00 05/19/19 23:57 Tenormin PO 25 mg QPM KARAN Administration Furosemide 40 mg 05/20/19 06:00 05/20/19 02:56 Lasix PO Not Given QAM KARAN Heparin Sodium (Be ef Lung) 5,000 unit 05/20/19 06:30 05/20/19 06:30 Heparin SUBCUT 5,000 unit Q8H KARAN Administration Dextrose/Sodium Ch loride 1,000 mls @ 100 m ls/hr 05/19/19 22:16 05/19/19 23:55 Dextrose 5%-Sod Chloride 0.45% IV 100 mls/hr .Q10H KARAN Administration Piperacillin Sod/T azobactam 50 mls @ 12.5 mls /hr 05/19/19 23:30 05/20/19 03:43 Sod 3.375 gm/ So dium Chloride IV Infused Q8H KARAN Infusion Protocol Morphine Sulfate 4 mg 05/19/19 21:06 05/20/19 04:42 Morphine IVP 4 mg Q4H PRN Administration SEVERE PAIN Ondansetron HCl 4 mg 05/19/19 21:06 05/20/19 04:41 Zofran IVP 4 mg Q4H PRN Administration vomiting, or N/V if npo Scopolamine 1 patch 05/20/19 07:00 05/20/19 07:06 Transderm-Scop TRANSDERMA 1 patch Q3D KARAN Administration PFSH Anesthesia PFSH: Medical History Angina pectoris (Acute) Asthma (Acute) CAD (coronary artery disease) (Acute) Cholecystitis (Acute) Chronic back pain (Acute) CKD (chronic kidney disease), stage II (Acute) Depression (Acute) Diabetes (Acute) Insulin-dependent HTN (hypertension) (Acute) Hyperlipidemia (Acute) Morbid obesity (Acute) Myocardial infarction (Acute) Surgical History History of heart artery stent (Acute) Status post stenting x2 in 2017 Hx of cholecystectomy (Acute) Family History Other CAD (coronary artery disease) Hypertension Social History Smoking and tobacco status: former smoker Alcohol intake: never Substance/Drug Use: never Lives independently: Yes Data Anesthesia CBC & Chem 7: 05/20/19 05:05 05/20/19 05:56 Other Labs: Laboratory Results - last 48 hr 05/19/19 05/19/19 05/19/19 18:54 18:54 18:54 WBC 10.0 RBC 3.62 L Hgb 11.1 L Hct 36.2 L MCV 100.0 H MCH 30.7 MCHC 30.7 RDW 12.6 Plt Count 198 MPV 10.0 Neut % (Auto) 63.9 Lymph % (Auto) 25.5 [place] % (Auto) 7.6 Eos % (Auto) 2.3 Baso % (Auto) 0.3 Neut # (Auto) 6.4 Lymph # (Auto) 2.6 [place] # (Auto) 0.8 Eos # (Auto) 0.2 Baso # (Auto) 0.0 Nucleated RBC % (auto) 0 Nucleated RBCs # 0.0 PT 13.00 INR 0.95 Sodium 136 Potassium 4.5 Chloride 98 Carbon Dioxide 26 Anion Gap 16.5 BUN 36 H Creatinine 1.3 H GFR Calculation 41.4 L Glucose 257 H POC Glucose Calcium 9.6 Total Bilirubin 0.3 AST 15 ALT 12 Alkaline Phosphatase 77 Total Protein 6.9 Albumin 3.5 Globulin 3.4 Urine Color Urine Appearance Urine pH Ur Specific [place] Urine Protein Urine Glucose (UA) Urine Ketones Urine Occult Blood Urine Nitrate Urine Bilirubin Urine Urobilinogen Ur Leukocyte Esterase Urine RBC Urine WBC Ur Squamous Epith Cells Urine Bacteria 05/19/19 05/19/19 05/20/19 19:25 22:31 05:05 WBC 7.4 RBC 3.34 L Hgb 9.8 L Hct 31.4 L MCV 94.0 D MCH 29.3 MCHC 31.2 RDW 12.5 Plt Count 194 MPV 10.5 H Neut % (Auto) 61.0 Lymph % (Auto) 25.9 [place] % (Auto) 9.4 Eos % (Auto) 3.1 Baso % (Auto) 0.3 Neut # (Auto) 4.5 Lymph # (Auto) 1.9 [place] # (Auto) 0.7 Eos # (Auto) 0.2 Baso # (Auto) 0.0 Nucleated RBC % (auto) 0 Nucleated RBCs # 0.0 PT INR Sodium Potassium Chloride Carbon Dioxide Anion Gap BUN Creatinine GFR Calculation Glucose POC Glucose 227 Calcium Total Bilirubin AST ALT Alkaline Phosphatase Total Protein Albumin Globulin Urine Color [place] Urine Appearance Cloudy Urine pH 5 Ur Specific [place] 1.020 Urine Protein Trace Urine Glucose (UA) 1+ Urine Ketones 1+ H Urine Occult Blood 3+ H Urine Nitrate Negative Urine Bilirubin Neg Urine Urobilinogen Norm Ur Leukocyte Esterase Negative Urine RBC 80-100 H Urine WBC 5-10 H Ur Squamous Epith Cells 5-10 H Urine Bacteria 1+ H 05/20/19 05:56 WBC RBC Hgb Hct MCV MCH MCHC RDW Plt Count MPV Neut % (Auto) Lymph % (Auto) [place] % (Auto) Eos % (Auto) Baso % (Auto) Neut # (Auto) Lymph # (Auto) [place] # (Auto) Eos # (Auto) Baso # (Auto) Nucleated RBC % (auto) Nucleated RBCs # PT INR Sodium 139 Potassium 4.3 Chloride 104 Carbon Dioxide 26 Anion Gap 13.3 BUN 24 H Creatinine 1.0 H GFR Calculation 56.0 L Glucose 211 H POC Glucose Calcium 8.6 L Total Bilirubin AST ALT Alkaline Phosphatase Total Protein Albumin Globulin Urine Color Urine Appearance Urine pH Ur Specific [place] Urine Protein Urine Glucose (UA) Urine Ketones Urine Occult Blood Urine Nitrate Urine Bilirubin Urine Urobilinogen Ur Leukocyte Esterase Urine RBC Urine WBC Ur Squamous Epith Cells Urine Bacteria Cardiac Studies: No Data to Display
[2019-05-20] MEDS: sodium chloride 0.9% 1,000 ML 30 ML IV (08:00)
[2019-05-20] MEDS: lidocaine 2% INJ 20 mL INJECTION (08:41)
--- NOTE | 2019-05-20 09:15 | PM.OP ---
Operative Report Date of procedure: 05/21/19 Pre-op Diagnosis: Acute appendicitis Post-op diagnosis: same Post-op Diagnosis: Retrocecal acutely inflamed appendicitis without perforation Procedure Done: Laparoscopic appendectomy Specimens removed/disposition: Appendix Surgeon: Nando Raygoza Visual C Developer: Surgical guille Barraza Circulating nurse Martha Anesthesia: General (seed laboratory technician Smart) and Local Estimated blood loss (mL): 10 Complications: No immediate complication Findings: Acute retrocecal appendicitis without perforation Morbidly obese patient Condition: stable Disposition: floor Brief History: Yuridia Whitmore is a pleasant 63 year old female patient morbidly obese with associated medical comorbidities in the form of insulin-dependent diabetes mellitus and coronary artery disease,presented to the emergency department with history of acute onset of abdominal pain about 9:00 in the morning yesterday towards her right lower quadrant associated with nausea, as the pain got worse she came to the hospital for further evaluation, where CT scan of the abdomen and pelvis was done and showed acute appendicitis. Patient denies any other symptoms in the form of fevers chills vomiting or change in bowel habits or even dysuria spite of the fact there is some RBCs in her urine. General surgery was consulted for further evaluation and potential intervention and hospitalist service was consulted for management of her medical comorbidities preoperatively. After thorough history physical examination and reviewing the chart and images with my personal interpretion, I counseled the patient for laparoscopic appendectomy possible open. Indications, risks, benefits and alternatives were all discussed with the patient and did agree to proceed. Informed consent per chart Procedure: Patient after being identified in the holding area and asked to void urine, and informed consent per chart ,patient was then taken back to the OR placed in supine position got intubated by anesthesia left arm was tucked tucked ,Timeout was done verifying the patient's name/date of /planned procedure and destination after the procedure, all were in agreement., preoperative antibiotics administered per protocol. prep and drape of the abdomen was done under the usual sterile technique. Started by longitudinal skin incision supraumbilical using a Higgins trocar technique safe entry to the abdominal cavity was achieved verified by using 10 mm zero degree laparoscopy, switched to a 30? scope under direct visualization a suprapubic 5 mm trocar was inserted followed by another 5 mm trocar inserted in the left lower quadrant, I was able to position the patient in an T [place] and left side down, dissection of the retrocecal acutely inflamed appendix ,bluntly, attention was deviated to the healthy base of the appendix where I had to switch the camera to 5 mm 30? scope got introduced through the left lower quadrant and through the Higgins trocar under direct visualization a GI stapler 45 mm blue load was applied at the healthy part of the base of the appendix, and an Endoloop PDS was applied onto the mesoappendix for control , the appendix was then retrieved in an Endo Catch bag, final survey was done of the abdomen and pelvis , irrigation with warm saline and suction was obtained Final look laparoscopy was done showing no other abnormalities or injuries, there was minor oozing at the left lower quadrant trocar site, managed to apply a figure of eight 2-0 Vicryl for hemostasis, all trocars were then taken out under direct visualization and the trocar site supraumbilically was closed by 0 Vicryl sutures under direct vision using fascial closure device prior to that ,followed by skin closure using 4-0 Monocryl of all trocar site incisions. infiltration of local lidocaine 2% was done to all incision sites. Dry dressing was applied. Count was completed at the end of the procedure for instruments , sponges and instruments Patient tolerated the procedure well and was transferred to the recovery area after extubation. I was present for the whole entire procedure
--- NOTE | 2019-05-20 09:34 | SUR.PHASEI ---
0930 PATIENT TO OPS FROM OR AT THIS TIME. RR EVEN AND UNLABORED. PWD. PLACED ON SIMPLE MASK AT 8L. SPO2 97%. 3 STABS NOTED TO ABDOMEN, CLOSED WITH EXOFIN.
--- NOTE | 2019-05-20 10:16 | SUR.PHASEI ---
1000 PATIENT TO MED SURG AT THIS TIME VIA GURNEY. RR EVEN AND UNLABORED. 94% ON 3L NC. PATIENT C/O PAIN 6/10, RESTING COMFORTABLE IN BED. 3 STABS NOTED TO ABDOMEN, CDI. PATIENT C/O NAUSEA ONCE IN THE HALLWAY, ZOFRAN GIVEN BY PRIMARY MED SURG NURSE ONCE ENTERING ROOM.
[2019-05-20] MEDS: atenolol 50 mg Tablet PO (10:24)
[2019-05-20] MEDS: famotidine 20 mg Tablet PO (10:24)
[2019-05-20] MEDS: HYDROcodone-acetaminophen 5-325 mg Tablet 1 TAB PO ×2 (10:43→17:05)
[2019-05-20 11:48] LABS: Glucose Point of Care 261 mg/dL (70-110)
[2019-05-20] MEDS: famotidine 20 mg/2 mL INJ IVP (12:37)
--- NOTE | 2019-05-20 13:15 | PC.CHAP ---
Pastoral Care Encounter/Spiritual Assessment Type of Contact [x] Declined specialist managers visit [] Patient/Family/Request visit [] Outpatient visit [] Follow-up visit [] Physician referral [] Code/Alert [] Routine visit [] Staff referral [] Actively dying [] Patient sleeping [] Family support [] [] Out of room [] Palliative care [] [] Receiving care in room [] Pre-surgical visit [] Trauma [] Long length of stay [] ICU visit [] Other: Relational/Emotional Strength [] Patient feels connected with others/family/visitors/staff [] Distress [] Loneliness/isolation [] Abandonment Spirituality of Patient [] Person of Michaela [] Attends Anglican of their Michaela [] Believes in Prayer [] Reads Bible or Sikh materials [] There are Spiritual issues to be addressed Flitch Hanger Interventions [] Prayer [] Active listening [] Non-anxious presence [] Spiritual/emotional support [] Crisis/trauma care [] Spiritual counseling [] Bereavement support [] Provided bereavement packet [] Provided Bible/devotional materials [] Provided toy/stuffed animal, coloring book to patient or family member [] Completed spiritual assessment [] Provided Communion [] Anointing/[place] [] Salvation [] Other: Impact on Illness or Injury [] Angry [] Fearful [] Anxious [] Often cries [] Exhaustion [] Unable to work [] Unable to attend muslim [] Unable to walk/stand [] Unable to read [] Unable to drive [] Unable to eat/drink [] Unable to sleep [] Unable to be with family [] Other: Summary Declined Flitch Hanger visit. Time spent with patient
[2019-05-20] MEDS: dextrose 5%-sod chloride 0.45% 1,000 ML 50 ML IV (15:17)
[2019-05-20] MEDS: piperacillin-tazobactam 3.375 GM in sodium chloride 0.9% (plus) 50 ML IV (15:17)
--- NOTE | 2019-05-20 16:02 | PM.PN ---
Subjective Subjective: Interval history: History and physical reviewed in detail. Patient reports some abdominal pain after surgery but is otherwise doing well. Medications: Reviewed: Yes Vitals/I&O/Wt Last Vital Signs Temp 98.8 F 05/20/19 15:27 Pulse 68 05/20/19 15:27 Resp 18 05/20/19 15:27 BP 134/74 05/20/19 15:27 Pulse Ox 96 05/20/19 15:27 05/20/19 05/20/19 05/20/19 06:59 14:59 22:59 Intake Total 110.1 / 593.433 0 / 0 Output Total 275 / 275 225 / 225 Balance -164.9 / 318.433 -225 / -225 Weight last 48 hrs Weight 138.799 kg Weight 142.201 kg Weight 136.078 kg Physical Exam Narrative: EXAM NARRATIVE: General exam no apparent distress Cardiovascular regular in rhythm without murmur Lungs clear Abdomen is obese, surgical site without any evidence of drainage or infection Extremities no cyanosis clubbing or edema Data : 05/20/19 05:05 05/20/19 05:56 A&P Assessment and plan (1) Acute appendicitis: Postoperative day #1 status post laparoscopic appendectomy. Continuing Zosyn currently. Status: Acute Qualifiers: Acute appendicitis type: unspecified acute appendicitis type Qualified Code(s): K35.80 - Unspecified acute appendicitis Code(s): K35.80 - Unspecified acute appendicitis (2) Diabetes: Sliding scale insulin, consistent carb diet Status: Acute Qualifiers: Diabetes mellitus complication status: without complication Diabetes mellitus residential insulin use: with laborer marine terminal use Diabetes mellitus type: type 2 Qualified Code(s): E11.9 - Type 2 diabetes mellitus without complications; Z79.4 - intermediate teacher (current) use of insulin Code(s): E11.9 - Type 2 diabetes mellitus without complications (3) CKD (chronic kidney disease), stage II: Stable Status: Acute Code(s): N18.2 - Chronic kidney disease, stage 2 (mild) (4) Morbid obesity: Status: Acute Code(s): E66.01 - Morbid (severe) obesity due to excess calories (5) Hyperlipidemia: Status: Acute Qualifiers: Hyperlipidemia type: unspecified Qualified Code(s): E78.5 - Hyperlipidemia, unspecified Code(s): E78.5 - Hyperlipidemia, unspecified (6) HTN (hypertension): Resume antihypertensives Status: Acute Qualifiers: Hypertension type: essential hypertension Qualified Code(s): I10 - Essential (primary) hypertension Code(s): I10 - Essential (primary) hypertension Additional A&P Information Anemia, appears chronic on old labs Coronary artery disease Chronic back pain Obstructive sleep apnea Depression Attestations Medical Necessity Statement*: Needs continued hospital stay for IV antibiotics related to acute appendicitis Coding Level of Care Code Acute E Commerce Strategist for [facility] Fwd Diagnoses Acute appendicitis K35.80 Acute appendicitis type: unspecified acute appendicitis type Diabetes E11.9; Z79.4 Diabetes mellitus complication status: without complication Diabetes mellitus residential insulin use: with residential use Diabetes mellitus type: type 2 CKD (chronic kidney disease), stage II N18.2 Morbid obesity E66.01 Hyperlipidemia E78.5 Hyperlipidemia type: unspecified HTN (hypertension) I10 Hypertension type: essential hypertension
[2019-05-20 16:59] LABS: Glucose Point of Care 289 mg/dL (70-110)
[2019-05-20] MEDS: atenolol 50 mg Tablet 25 MG PO (19:36)
[2019-05-20] MEDS: sodium chloride 0.9% 1,000 ML 75 ML IV (19:38)
[2019-05-20 20:53] LABS: Glucose Point of Care 307 mg/dL (70-110)
[2019-05-21] VITALS (13 sets, daily range): BP systolic 106–144; BP diastolic 41–74; PULSE 63–73; RESP 16–20; TEMP 36.6–37.4; O2SAT 90–99
[2019-05-21] MEDS: piperacillin-tazobactam 3.375 GM in sodium chloride 0.9% (plus) 50 ML IV ×4 (00:24→23:17)
[2019-05-21] MEDS: HYDROcodone-acetaminophen 5-325 mg Tablet 1 TAB PO ×2 (00:24→08:03)
[2019-05-21] MEDS: famotidine 20 mg/2 mL INJ IVP ×2 (03:26→14:35)
[2019-05-21 06:30] LABS: Glucose Point of Care 256 mg/dL (70-110)
[2019-05-21 06:40] LABS: Basophils % 0.2 %; Eosinophils # 0.1 10^3/uL (0.0-0.8); Eosinophils % 1.1 %; Hematocrit 23.7 % (37.0-47.0); Hemoglobin 7.2 g/dL (11.5-15.3); Lymphocytes # 1.6 10^3/uL (0.8-4.8); Lymphocytes % 13.1 %; Mean Corpuscular HGB Conc 30.4 g/dL (30.0-36.0); Mean Corpuscular Hemoglobin 29.3 pg (28.0-34.0); Mean Corpuscular Volume 96.3 fL (81-99); Mean Platelet Volume 10.1 fL (7.4-10.4); Monocytes # 1.1 10^3/uL (0.2-0.9); Monocytes % 9.2 %; Neutrophils # 9.3 10^3/uL (1.8-7.7); Neutrophils % 75.7 %; Nucleated Red Blood Cells % 0 %; Platelet Count 181 10^3/cmm (130-400); Red Blood Count 2.46 10^6/uL (4.1-5.3); Red Cell Distribution Width 12.4 % (12.1-15.1); White Blood Count 12.3 10^3/uL (4.0-10.0)
[2019-05-21 06:55] LABS: Blood Urea Nitrogen 30 mg/dL (8-23); Carbon Dioxide 25 mmol/L (22-29); Chloride 100 mmol/L (98-107); Glucose 245 mg/dL (74-106); Sodium 133 mmol/L (136-145)
[2019-05-21] MEDS: heparin 5,000 unit/mL INJ 1 mL 5000 UNIT SUBCUT (07:13)
[2019-05-21] MEDS: FUROsemide 40 mg Tablet PO (07:14)
--- NOTE | 2019-05-21 07:21 | PM.PN ---
Subjective Subjective: Interval history: Feels better Some issues with urination,had to in and out cath twice and nurse reported blood clott formation in urine. Vitals/I&O/Wt Last Vital Signs Temp 97.8 F 05/21/19 04:05 Pulse 63 05/21/19 04:05 Resp 18 05/21/19 04:05 BP 106/57 05/21/19 04:05 Pulse Ox 94 05/21/19 04:05 05/20/19 05/21/19 05/21/19 22:59 06:59 14:59 Intake Total 710 / 710 350 / 1060 Balance 710 / 485 350 / 835 Weight last 48 hrs Weight 306 lb Weight 313 lb 8 oz Weight 300 lb Physical Exam Const: COMMON NORMALS: no apparent distress and oriented x3 GENERAL APPEARANCE: cooperative ORIENTATION/CONSCIOUSNESS: Yes awake, Yes oriented to person, Yes oriented to place and Yes oriented to time Eye: COMMON NORMALS: PERRL and no scleral icterus PUPIL: Yes PERRL Chest: COMMONS NORMALS: inspection of chest normal Resp: COMMON NORMALS: normal respiratory effort and clear to auscultation bilaterally AUSCULTATION: clear to auscultation bilaterally Cardio: COMMON NORMALS: S1 normal heart sound and S2 normal heart sound; negative for no murmurs HEART SOUNDS: S1 normal and S2 normal GI: COMMON NORMALS: soft to palpation; negative for no hepatosplenomegaly INSPECTION: Yes normal to inspection PALPATION: Yes soft, No firm, No tender, No guarding, No rigid and No no hepatosplenomegaly Neuro: COMMON NORMALS: oriented x3 SENSORIUM/ORIENTATION: Yes oriented to person, Yes oriented to place and Yes oriented to time Psych: COMMON NORMALS: mental status grossly normal Data : 05/21/19 14:08 05/21/19 14:08 A&P Assessment and plan (1) Acute appendicitis: From surgical standpoint of view patient overall is doing well yet there is some drift in H&H we will monitor that closer and likely will have the patient to spend 1 more night in the hospital, probably heparin subcu will be stopped for now. Will defer hematuria to hospitalist service as patient may potentially have an underlying UTI We will discuss further with the hospitalist service about the thought process with that regard as patient's admission urinalysis showed RBCs in urine, also it may warrant further urology follow-up or potential intervention. Will advance patient's diet Encourage ambulation We will continue Zosyn for now due to the elevated WBC count and potential concern Status: Resolved Qualifiers: Acute appendicitis type: unspecified acute appendicitis type Qualified Code(s): K35.80 - Unspecified acute appendicitis Code(s): K35.80 - Unspecified acute appendicitis Attestations Medical Necessity Statement*: Observation Coding Level of Care Code Acute Turn Down Attendant for [facility] Exam Problem Focused Diagnoses Acute appendicitis K35.80 Acute appendicitis type: unspecified acute appendicitis type
[2019-05-21] MEDS: atenolol 50 mg Tablet PO (08:03)
[2019-05-21] MEDS: sodium chloride 0.9% 1,000 ML 75 ML IV (08:04)
--- NOTE | 2019-05-21 09:12 | PC.NURSE ---
Patient refused bath. Patient stated I can't smell myself, so I do not want a bath.
--- NOTE | 2019-05-21 10:28 | PM.SDS ---
Short Stay Summary Providers Date of Admit/Discharge: 05/23/19 Attending Provider: Nando Raygoza MD Chief Complaint: ABD PAIN HPI History of Present Illness Yuridia Whitmore is a 63 year old female presented to the emergency department where CT scan was obtained showed acute appendicitis, patient was counseled for laparoscopic appendectomy possible open and she did agree to proceed. Patient was admitted on my service and hospitalist was consulted for medical management of her medical comorbidities including type 1 diabetes mellitus. Patient was counseled for laparoscopic appendectomy possible open and she did agree to proceed, overall did well yet she was given subcu heparin due to her morbid obesity to prevent DVT, currently that caused her H&H to drop without change in her hemodynamics, the hospital service prefer to give the patient 1 unit of packed RBCs and patient maintained to be doing well. In the interim during hospitalization she had a Rivers catheter inserted and then she passed her voiding trial the following day and patient was discharged safely. Patient elected not to receive any hydrocodone was comfortable only by Tylenol Review of Systems Const: Denies: fever, chills, body aches or malaise Card: Denies: chest pain Resp: Denies: shortness of breath GI: Denies: abdominal pain, nausea, vomiting, difficulty swallowing, diarrhea, constipation or blood in stool : Reports: difficulty urinating Neuro: Denies: headache Psych: Denies: anxiety or depression Home Meds/Allergies Home Medications and Allergies Home Medications Medication Instructions Recorded Confirmed Type Humalog U-100 Insulin See Rx Instructions .ROUTE .COMPLEX 05/19/19 05/19/19 History Lasix 40 mg PO QAM 05/19/19 05/19/19 History Levemir U-100 Insulin 120 unit SUBCUT DAILY 05/19/19 05/19/19 History famotidine 20 mg PO DAILY 05/19/19 05/19/19 History Allergies Allergy/AdvReac Type Severity Reaction Status Date / Time butorphanol [From Stadol] Allergy ADR-Halluci Verified 05/19/19 18:39 nating ketorolac [From Toradol] Allergy Unknown Verified 05/19/19 18:39 PFSH Acute PFSH: Statuses (acute, chronic, etc) shown below reflect problem list status as previously entered and may not be historically accurate Medical History Angina pectoris (Acute) Asthma (Acute) CAD (coronary artery disease) (Acute) Cholecystitis (Acute) Chronic back pain (Acute) CKD (chronic kidney disease), stage II (Acute) Depression (Acute) Diabetes (Acute) HTN (hypertension) (Acute) Hyperlipidemia (Acute) Morbid obesity (Acute) Myocardial infarction (Acute) Surgical History History of heart artery stent (Acute) Status post stenting x2 in 2017 Hx of cholecystectomy (Acute) Family History Other CAD (coronary artery disease) Hypertension Social History Smoking and tobacco status: former smoker Alcohol intake: never Lives independently: Yes Vitals/I&O/Wt Last Vital Signs Temp 98.3 F 05/21/19 09:00 Pulse 73 05/21/19 09:00 Resp 19 H 05/21/19 09:00 BP 112/58 05/21/19 09:00 Pulse Ox 90 05/21/19 09:00 05/20/19 05/21/19 05/21/19 22:59 06:59 14:59 Intake Total 710 / 710 350 / 1060 1172.5 / 1172.5 Balance 710 / 485 350 / 835 1172.5 / 1172.5 Weight last 48 hrs Weight 306 lb Weight 313 lb 8 oz Weight 300 lb Physical Exam Const: COMMON NORMALS: no apparent distress and oriented x3 GENERAL APPEARANCE: cooperative ORIENTATION/CONSCIOUSNESS: Yes awake, Yes oriented to person, Yes oriented to place and Yes oriented to time HENMT: COMMON NORMALS: normocephalic HEAD & SCALP: normocephalic Eye: COMMON NORMALS: PERRL and no scleral icterus PUPIL: Yes PERRL Resp: COMMON NORMALS: normal respiratory effort and clear to auscultation bilaterally AUSCULTATION: clear to auscultation bilaterally Cardio: COMMON NORMALS: S1 normal heart sound and S2 normal heart sound; negative for no murmurs HEART SOUNDS: S1 normal and S2 normal GI: COMMON NORMALS: soft to palpation; negative for no hepatosplenomegaly INSPECTION: Yes normal to inspection PALPATION: Yes soft, No firm, No tender, No guarding, No rigid, No no hepatosplenomegaly and Yes other (Incisions are clean dry and intact) Neuro: COMMON NORMALS: oriented x3 SENSORIUM/ORIENTATION: Yes oriented to person, Yes oriented to place and Yes oriented to time Psych: COMMON NORMALS: mental status grossly normal Skin: NARRATIVE SKIN EXAM: Some ecchymotic patches were noticed at the lower part of the Hospital Course Admission Diagnoses: Acute appendicitis Discharge Summary: Overall patient is doing well, tolerating by mouth intake, stable vital signs, good urine output Patient is conscious alert oriented X3 BMI 56 Head and neck examination PERRLA no masses no cervical lymphadenopathy no jaundice Cardiac examination audible S1-S2 no murmurs no gallops no arrhythmias Chest is clear bilateral,abscence of Rhonchi or wheezes,no surgical emphysema Abdomen nontender nondistended soft no organomegaly guarding or rigidity/no signs of peritonitis Ecchymotic patches in the lower part of the SSS Data Data Completed and Pending: Completed Studies During Hospitalization Category Date Time Status CT abdomen pelvis w con* [id number] Urge nt Cat Scan 05/19/19 18:46 Completed Pending at discharge Category Date Time Status ES surgery / GI i mages Routine Exams 05/20/19 07:15 Taken Complete Blood Co unt w/Auto AM LABS Lab 05/22/19 04:00 Ordered Urine Culture Sta t Lab 05/19/19 19:25 Results Pathology: Surgic al [PTH] Routine Pth 05/20/19 09:06 Received Diagnoses at Discharge Discharge Diagnosis (1) Acute appendicitis: Status: Resolved Problem details: Plan to discharge patient home follow-up with me at surgery office in 7 to 10 days Qualifiers: Acute appendicitis type: unspecified acute appendicitis type Qualified Code(s): K35.80 - Unspecified acute appendicitis Discharge Plan Discharge Patient Disposition: Home Health Service Condition: Fair Prescriptions: New atenolol 50 mg Tablet 25 mg PO QPM 30 Days Qty: 15 RF: 0 atenolol 50 mg Tablet 50 mg PO QAM 30 Days Qty: 30 RF: 0 Continued Lasix 40 mg Tablet 40 mg PO QAM RF: 0 famotidine 20 mg Tablet 20 mg PO DAILY RF: 0 Humalog U-100 Insulin 100 unit/mL Cartridge See Rx Instructions .ROUTE .COMPLEX RF: 0 Held Levemir U-100 Insulin 100 unit/mL Solution 120 unit SUBCUT DAILY RF: 0 Hold Instructions: Resume on 05/23/19. Resume if tolerating general diet Discontinued atenolol 50 mg Tablet See Rx Instructions .ROUTE .COMPLEX RF: 0 Discharge Orders: Discharge Order (Routine); Ordered 05/21/19 Ordered By: Nando Raygoza Other Ambulatory Orders: Complete Blood Count w/Auto (Routine) Timeframe: 1 Day Location: Determined by Patient Ordered By: Kalia Esquivel Referrals: Rupa Price DPM [Family Provider] - 05/28/19 11:00 am () Nando Raygoza MD [Physician] - 05/28/19 8:15 am Kenny Massey MD [Physician] - 2 weeks (hematuria) Discharge Diet: Advance as tolerated Discharge Activity: Resume usual activity Patient Instructions: Appendicitis (GEN) Activity Restrictions/Additional Instructions: 1. Patient can shower after 48 hours from surgery 2. Remove Dermabond 7 to 10 days after surgery 3. Up and walking as tolerated 4. Do lift more than 5 pounds first 2 weeks after surgery and not more than 25 pounds 6 to 8 weeks after surgery. 5. Do not operate heavy machinery or drive while using pain medications. 6.Contact the office or return to the ER for worsening nausea vomiting fevers or chills, or noticing any redness around incision sites or discharge. 6. Advised to return to ER or contact my office if there are any signs of infection like, increasing pain, fevers, chills, redness or drainage of pus. 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
[2019-05-21 11:41] LABS: Glucose Point of Care 301 mg/dL (70-110)
[2019-05-21 14:21] LABS: Basophils % 0.2 %; Eosinophils # 0.2 10^3/uL (0.0-0.8); Eosinophils % 1.6 %; Hematocrit 23.3 % (37.0-47.0); Hemoglobin 7.1 g/dL (11.5-15.3); Lymphocytes # 2.2 10^3/uL (0.8-4.8); Mean Corpuscular HGB Conc 30.5 g/dL (30.0-36.0); Mean Corpuscular Hemoglobin 30.5 pg (28.0-34.0); Mean Platelet Volume 10.4 fL (7.4-10.4); Monocytes # 0.9 10^3/uL (0.2-0.9); Monocytes % 7.3 %; Neutrophils # 8.7 10^3/uL (1.8-7.7); Nucleated Red Blood Cells % 0 %; Platelet Count 181 10^3/cmm (130-400); Red Blood Count 2.33 10^6/uL (4.1-5.3); Red Cell Distribution Width 12.5 % (12.1-15.1); White Blood Count 12.1 10^3/uL (4.0-10.0)
[2019-05-21 14:35] LABS: Alanine Aminotransferase 20 U/L (0-33); Albumin Level 2.8 g/dL (3.5-5.2); Alkaline Phosphatase 51 IU/L (35-105); Aspartate Amino Transferase 16 U/L (0-32); Blood Urea Nitrogen 30 mg/dL (8-23); Calcium 8.1 mg/Dl (8.8-10.2); Carbon Dioxide 23 mmol/L (22-29); Chloride 98 mmol/L (98-107); Glomerular Filtration Rate 32.6 mL/min (90-130); Glucose 297 mg/dL (74-106); Sodium 130 mmol/L (136-145); Total Bilirubin 0.4 mg/dL (0.15-1.2); Total Protein 5.8 g/dL (6.6-8.7)
[2019-05-21 17:28] LABS: Glucose Point of Care 310 mg/dL (70-110)
[2019-05-21] MEDS: psyllium powder Pkt 1 PACKET PO (17:52)
[2019-05-21] MEDS: atenolol 50 mg Tablet 25 MG PO (17:53)
--- NOTE | 2019-05-21 20:08 | PM.PN ---
Subjective Subjective: Interval history: This morning patient states that she continues to have acute urinary retention, had 2 straight caths overnight, does not have a history of urinary retention, no history of UTIs, no fevers Patient states that this morning her abdomen seems more distended, has generalized tenderness, tried a general diet, feels a bit unwell after eating, no bowel movement, has not passed gas yet, Vitals/I&O/Wt Last Vital Signs Temp 98.3 F 05/21/19 15:30 Pulse 72 05/21/19 15:30 Resp 18 05/21/19 15:30 BP 132/55 05/21/19 15:30 Pulse Ox 90 05/21/19 15:30 05/21/19 05/21/19 05/21/19 06:59 14:59 22:59 Intake Total 350 / 1060 1582.5 / 1582.5 Output Total 550 / 550 Balance 350 / 835 1582.5 / 1582.5 -550 / 1032.5 Weight last 48 hrs Weight 138.799 kg Weight 142.201 kg Physical Exam Const: COMMON NORMALS: no apparent distress and oriented x3 HENMT: COMMON NORMALS: normocephalic HEAD & SCALP: normocephalic Neck/C-Spine: COMMON NORMALS: no JVD Resp: COMMON NORMALS: normal respiratory effort, no retractions, no use of accessory muscles and clear to auscultation bilaterally AUSCULTATION: clear to auscultation bilaterally Cardio: COMMON NORMALS: no JVD, regular rate, regular rhythm, S1 normal heart sound and S2 normal heart sound RATE: regular rate RHYTHM: regular rhythm HEART SOUNDS: S1 normal and S2 normal GI: COMMON NORMALS: soft to palpation INSPECTION: Yes normal to inspection, Yes abdominal distension and Yes incision AUSCULTATION: Yes hypoactive bowel sounds PALPATION: Yes soft and Yes tender (Generalized tenderness) PERCUSSION: normal to percussion Extremity: COMMON NORMALS: normal capillary refill, no clubbing, cyanosis or edema, no calf tenderness and no pedal edema Neuro: COMMON NORMALS: oriented x3 Psych: COMMON NORMALS: mental status grossly normal Urinary Catheter Management^: Rivers: Cath Placed During This Visit: no Data : 05/21/19 14:08 05/21/19 14:08 Micro: Microbiology 01/18/20 19:25 Urine Culture - Preliminary Urine,Clean Catch A&P Assessment and plan (1) Acute appendicitis: Postoperative day #2 status post laparoscopic appendectomy. Continuing Zosyn currently. 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 insulin use: with termite control servicer use Diabetes mellitus complication status: without complication Qualified Code(s): E11.9 - Type 2 diabetes mellitus without complications; Z79.4 - senior care (current) use of insulin Code(s): E11.9 - Type 2 diabetes mellitus without complications (3) CKD (chronic kidney disease), stage II: Reacting increased to 1.6, needs gentle hydration Status: Acute Code(s): N18.2 - Chronic kidney disease, stage 2 (mild) (4) Morbid obesity: Status: Acute Code(s): E66.01 - Morbid (severe) obesity due to excess calories (5) Hyperlipidemia: Status: Acute Qualifiers: Hyperlipidemia type: unspecified Qualified Code(s): E78.5 - Hyperlipidemia, unspecified Code(s): E78.5 - Hyperlipidemia, unspecified (6) HTN (hypertension): Resume antihypertensives Status: Acute Qualifiers: Hypertension type: essential hypertension Qualified Code(s): I10 - Essential (primary) hypertension Code(s): I10 - Essential (primary) hypertension (7) Acute urinary retention: -Will place Rivers catheter -Possibly secondary to anesthesia, surgery -We will try voiding trial tomorrow Status: Acute Code(s): R33.8 - Other retention of urine (8) Hematuria: -Significant hematuria on UA on admission, RBCs -Will require an outpatient follow-up with urology Status: Acute Code(s): R31.9 - Hematuria, unspecified Additional A&P Information Anemia, appears chronic on old labs Coronary artery disease Chronic back pain Obstructive sleep apnea Depression Attestations Medical Necessity Statement*: Patient requires continued hospitalization, for acute appendicitis, status post surgical intervention, acute urinary retention, continued abdominal pain Coding Level of Care Code Acute General Office Assistant for [facility] Fwd Diagnoses Acute appendicitis K35.80 Acute appendicitis type: unspecified acute appendicitis type Diabetes E11.9; Z79.4 Diabetes mellitus type: type 2 Diabetes mellitus senior care insulin use: with senior care use Diabetes mellitus complication status: without complication CKD (chronic kidney disease), stage II N18.2 Morbid obesity E66.01 Hyperlipidemia E78.5 Hyperlipidemia type: unspecified HTN (hypertension) I10 Hypertension type: essential hypertension Acute urinary retention R33.8 Hematuria R31.9
[2019-05-21 21:41] LABS: Glucose Point of Care 292 mg/dL (70-110)
[2019-05-22] VITALS (8 sets, daily range): BP systolic 103–138; BP diastolic 45–72; PULSE 68–78; RESP 18–19; TEMP 36.6–37.2; O2SAT 90–98
[2019-05-22] MEDS: sodium chloride 0.9% 100 ML 150 ML (00:35)
[2019-05-22] MEDS: sodium chloride 0.9% 1,000 ML 125 ML IV (00:36)
[2019-05-22] MEDS: famotidine 20 mg/2 mL INJ IVP (02:45)
[2019-05-22] MEDS: HYDROcodone-acetaminophen 5-325 mg Tablet 1 TAB PO (02:52)
--- NOTE | 2019-05-22 06:00 | P.PN_ITS ---
Subjective Subjective: Interval history: Patient overall feels well Received 1 unit of packed RBCs yesterday Good urine output Vitals/I&O/Wt Last Vital Signs Temp 98.1 F 05/22/19 03:39 Pulse 72 05/22/19 03:39 Resp 18 05/22/19 03:39 BP 111/63 05/22/19 03:39 Pulse Ox 98 05/22/19 03:39 05/21/19 05/21/19 05/22/19 14:59 22:59 06:59 Intake Total 1582.5 / 1582.5 1328.75 / 2911.25 350 / 3261.25 Output Total 550 / 550 1560 / 2110 Balance 1582.5 / 1582.5 778.75 / 2361.25 -1210 / 1151.25 Physical Exam Const: COMMON NORMALS: no apparent distress and oriented x3 GENERAL APPEARANCE: cooperative ORIENTATION/CONSCIOUSNESS: Yes awake, Yes oriented to person, Yes oriented to place and Yes oriented to time Eye: COMMON NORMALS: PERRL and no scleral icterus PUPIL: Yes PERRL Resp: COMMON NORMALS: normal respiratory effort and clear to auscultation bilaterally AUSCULTATION: clear to auscultation bilaterally Cardio: COMMON NORMALS: S1 normal heart sound and S2 normal heart sound; negative for no murmurs HEART SOUNDS: S1 normal and S2 normal GI: COMMON NORMALS: soft to palpation; negative for no hepatosplenomegaly INSPECTION: Yes normal to inspection and Yes other (Ecchymosis noticed in the lower part of the pannus) PALPATION: Yes soft, No firm, Yes tender (At the umbilical incision site), No guarding, No rigid, No no hepatosplenomegaly and Yes other Neuro: COMMON NORMALS: oriented x3 SENSORIUM/ORIENTATION: Yes oriented to person, Yes oriented to place and Yes oriented to time Urinary Catheter Management^: Rivers: Cath Placed During This Visit: no Data : 05/22/19 05:40 05/22/19 05:40 Micro: Microbiology 05/19/19 19:25 Urine Culture - Preliminary Urine,Clean Catch A&P Assessment and plan (1) Acute appendicitis: Awaiting a.m. labs, once patient's H&H is appropriate we will coordinate with the hospitalist service for potential discharge home today Will advance diet as tolerated Encourage ambulation with assistance Status: Resolved Qualifiers: Acute appendicitis type: unspecified acute appendicitis type Qualified Code(s): K35.80 - Unspecified acute appendicitis Code(s): K35.80 - Unspecified acute appendicitis Attestations Medical Necessity Statement*: Observation Time Spent in Patient Care: 16 - 35 minutes (>than 50% of time spent in counselling and/or direct pt care on unit) . 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
[2019-05-22 06:10] LABS: Basophils % 0.2 %; Eosinophils # 0.3 10^3/uL (0.0-0.8); Eosinophils % 2.4 %; Hematocrit 25.1 % (37.0-47.0); Hemoglobin 7.7 g/dL (11.5-15.3); Lymphocytes # 1.8 10^3/uL (0.8-4.8); Lymphocytes % 16.9 %; Mean Corpuscular HGB Conc 30.7 g/dL (30.0-36.0); Mean Corpuscular Hemoglobin 29.3 pg (28.0-34.0); Mean Corpuscular Volume 95.4 fL (81-99); Mean Platelet Volume 10.3 fL (7.4-10.4); Monocytes # 0.9 10^3/uL (0.2-0.9); Monocytes % 8.6 %; Neutrophils # 7.4 10^3/uL (1.8-7.7); Neutrophils % 70.6 %; Nucleated Red Blood Cells % 0 %; Platelet Count 167 10^3/cmm (130-400); Red Blood Count 2.63 10^6/uL (4.1-5.3); Red Cell Distribution Width 13.6 % (12.1-15.1); White Blood Count 10.4 10^3/uL (4.0-10.0)
[2019-05-22 06:31] LABS: Anion Gap 14.8 (5-19); Blood Urea Nitrogen 28 mg/dL (8-23); Calcium 8.5 mg/Dl (8.8-10.2); Carbon Dioxide 22 mmol/L (22-29); Chloride 100 mmol/L (98-107); Glucose 338 mg/dL (74-106); Potassium 4.8 mmol/L (3.5-5.1); Sodium 132 mmol/L (136-145)
[2019-05-22 06:45] LABS: Glucose Point of Care 315 mg/dL (70-110)
[2019-05-22] MEDS: piperacillin-tazobactam 3.375 GM in sodium chloride 0.9% (plus) 50 ML IV (06:49)
[2019-05-22] MEDS: atenolol 50 mg Tablet PO (08:20)
[2019-05-22] MEDS: psyllium powder Pkt 1 PACKET PO (08:27)
[2019-05-22 11:22] LABS: Glucose Point of Care 322 mg/dL (70-110)
[2019-05-22] MEDS: bisacodyl 10 mg Supp PR (13:15)
--- NOTE | 2019-05-22 13:26 | PC.NURSE ---
Discharge instructions given per physician's orders. Patient verbalized understanding and did not have any further questions.
--- NOTE | 2019-05-22 15:57 | PC.NURSE ---
Wire Stretcher confirmed Home Health has been established for the patient. No further needs identified at this time.
--- NOTE | 2019-05-22 17:08 | PM.DCS ---
Discharge Providers Date of Admission: 05/19/19 21:15 Date of Discharge: 05/22/19 Attending Provider at Admission: Nando Raygoza MD Attending Provider at Discharge: Nando Raygoza MD Diagnoses at Discharge Discharge Diagnosis (1) Acute appendicitis: Status: Resolved Qualifiers: Acute appendicitis type: unspecified acute appendicitis type Qualified Code(s): K35.80 - Unspecified acute appendicitis Reason for Visit Reason for Visit: Reason For Visit: ABD PAIN Hospital Course Discharge Summary: Yuridia Whitmore is a 63 year old female with PMHx of CAD s/p stenting x 2, HTN, Hyperlipidemia, IDDM type II, CKD stage 2, Morbid obesity, Chronic back pain, JODI, Depression; presents from home with complaints of right lower quadrant pain. Patient was admitted for acute appendicitis, received IV fluids, broad-spectrum antibiotics, Dr. Raygoza performed a laparoscopic appendectomy. The hospitalist team was consulted for medical management. Patient had a laparoscopic appendectomy on 05/21/[address] Raygoza, with postoperative findings of a retrocecal acutely inflamed appendicitis without perforation. Postoperatively, patient had a slow slow clinical progress, patients hemoglobin declined to 7.1, requiring 1 unit of PRBC. Patient was discharged home, with a close follow-up with surgery as outpatient, and instructions to recheck her hemoglobin the following day. Patient was advised if she were to have worsening abdominal pain, distention, nausea, vomiting to come back to the emergency room. Postoperatively patient had acute urinary retention, requiring Rivers placement, Rivers catheter was removed prior to discharge and she passed a voiding trial. On admission, patient's urine showed hematuria, and 80-100 RBCs per high-powered field. CT scan was unremarkable for nephrolithiasis. Patient will require an outpatient follow-up with urology for consideration for CT urogram versus cystoscopy. Physical Exam Const: COMMON NORMALS: no apparent distress and oriented x3 HENMT: COMMON NORMALS: normocephalic HEAD & SCALP: normocephalic Neck/C-Spine: COMMON NORMALS: no JVD Resp: COMMON NORMALS: normal respiratory effort, no retractions, no use of accessory muscles and clear to auscultation bilaterally AUSCULTATION: clear to auscultation bilaterally Cardio: COMMON NORMALS: no JVD, regular rate, regular rhythm, S1 normal heart sound and S2 normal heart sound RATE: regular rate RHYTHM: regular rhythm HEART SOUNDS: S1 normal and S2 normal GI: COMMON NORMALS: soft to palpation INSPECTION: Yes normal to inspection, Yes abdominal distension and Yes incision AUSCULTATION: Yes hypoactive bowel sounds PALPATION: Yes soft PERCUSSION: normal to percussion Extremity: COMMON NORMALS: normal capillary refill, no clubbing, cyanosis or edema, no calf tenderness and no pedal edema Neuro: COMMON NORMALS: oriented x3 Psych: COMMON NORMALS: mental status grossly normal Urinary Catheter Management^: Rivers: Cath Placed During This Visit: no Discharge Data Data Completed and Pending: Completed Studies During Hospitalization Category Date Time Status CT abdomen pelvis w con* [id number] Urge nt Cat Scan 05/19/19 18:46 Completed Pathology: Surgic al [PTH] Routine Pth 05/20/19 09:06 Completed Pending at discharge Category Date Time Status ES surgery / GI i mages Routine Exams 05/20/19 07:15 Taken Labs from last 24 hours 05/22/19 05/22/19 05/22/19 11:12 06:40 05:40 WBC RBC Hgb Hct MCV MCH MCHC RDW Plt Count MPV Neut % (Auto) Lymph % (Auto) [place] % (Auto) Eos % (Auto) Baso % (Auto) Neut # (Auto) Lymph # (Auto) [place] # (Auto) Eos # (Auto) Baso # (Auto) Nucleated RBC % (a uto) Nucleated RBCs # Sodium 132 L Potassium 4.8 Chloride 100 Carbon Dioxide 22 Anion Gap 14.8 BUN 28 H Creatinine 1.4 H GFR Calculation 38.0 L Glucose 338 H POC Glucose 322 315 Calcium 8.5 L Blood Type Antibody Screen Crossmatch 05/22/19 05/21/19 05/21/19 05:40 21:36 17:17 WBC 10.4 H RBC 2.63 L Hgb 7.7 L Hct 25.1 L MCV 95.4 MCH 29.3 MCHC 30.7 RDW 13.6 Plt Count 167 MPV 10.3 Neut % (Auto) 70.6 Lymph % (Auto) 16.9 [place] % (Auto) 8.6 Eos % (Auto) 2.4 Baso % (Auto) 0.2 Neut # (Auto) 7.4 Lymph # (Auto) 1.8 [place] # (Auto) 0.9 Eos # (Auto) 0.3 Baso # (Auto) 0.0 Nucleated RBC % (a uto) 0 Nucleated RBCs # 0.0 Sodium Potassium Chloride Carbon Dioxide Anion Gap BUN Creatinine GFR Calculation Glucose POC Glucose 292 310 Calcium Blood Type Antibody Screen Crossmatch 05/21/19 15:43 WBC RBC Hgb Hct MCV MCH MCHC RDW Plt Count MPV Neut % (Auto) Lymph % (Auto) [place] % (Auto) Eos % (Auto) Baso % (Auto) Neut # (Auto) Lymph # (Auto) [place] # (Auto) Eos # (Auto) Baso # (Auto) Nucleated RBC % (a uto) Nucleated RBCs # Sodium Potassium Chloride Carbon Dioxide Anion Gap BUN Creatinine GFR Calculation Glucose POC Glucose Calcium Blood Type O Negative Antibody Screen Negative Crossmatch See Detail Vitals: Last Vital Signs Temp 98.3 F 05/22/19 15:59 Pulse 78 05/22/19 15:59 Resp 18 05/22/19 15:59 BP 103/45 05/22/19 15:59 Pulse Ox 90 05/22/19 15:59 Discharge Plan Discharge Patient Disposition: Home Health Service Condition: Fair Prescriptions: New atenolol 50 mg Tablet 25 mg PO QPM 30 Days Qty: 15 RF: 0 atenolol 50 mg Tablet 50 mg PO QAM 30 Days Qty: 30 RF: 0 Continued Lasix 40 mg Tablet 40 mg PO QAM RF: 0 famotidine 20 mg Tablet 20 mg PO DAILY RF: 0 Humalog U-100 Insulin 100 unit/mL Cartridge See Rx Instructions .ROUTE .COMPLEX RF: 0 Held Levemir U-100 Insulin 100 unit/mL Solution 120 unit SUBCUT DAILY RF: 0 Hold Instructions: Resume on 05/23/19. Resume if tolerating general diet Discontinued atenolol 50 mg Tablet See Rx Instructions .ROUTE .COMPLEX RF: 0 Discharge Orders: Discharge Order (Routine); Ordered 05/21/19 Ordered By: Nando Raygoza Other Ambulatory Orders: Complete Blood Count w/Auto (Routine) Timeframe: 1 Day Location: Determined by Patient Ordered By: Kalia Esquivel Referrals: Rupa Price DPM [Family Provider] - 05/28/19 11:00 am () Nando Raygoza MD [Physician] - 05/28/19 8:15 am Kenny Massey MD [Physician] - 2 weeks (hematuria) Discharge Diet: Advance as tolerated Discharge Activity: Resume usual activity Patient Instructions: Appendicitis (GEN) Activity Restrictions/Additional Instructions: 1. Patient can shower after 48 hours from surgery 2. Remove Dermabond 7 to 10 days after surgery 3. Up and walking as tolerated 4. Do lift more than 5 pounds first 2 weeks after surgery and not more than 25 pounds 6 to 8 weeks after surgery. 5. Do not operate heavy machinery or drive while using pain medications. 6.Contact the office or return to the ER for worsening nausea vomiting fevers or chills, or noticing any redness around incision sites or discharge. 6. Advised to return to ER or contact my office if there are any signs of infection like, increasing pain, fevers, chills, redness or drainage of pus. Discharge Date/Time: 05/22/19 16:00 Discharge Attestations Time Spent in Discharge Care*: less than 30 min Quality Metrics Clinical Quality Measures During this hospital stay, did patient experience: None Coding Level of Care Code Acute Investment Executive for [facility] Diagnoses Acute appendicitis K35.80 Acute appendicitis type: unspecified acute appendicitis type
== END 2019-05-22 16:00 | disposition home health service (06) | DRG 343 ==
LOC: ER 21:06 → MEDSURG 21:33
PROVIDERS: Family Medicine; Admitting Provider Surgery; Emergency Provider Family Medicine; Family Provider Nurse Practitioner; Visit Provider Surgery
PROC: 0DTJ4ZZ Resection of Appendix, Percutaneous Endoscopic Approach (ICD-10-PCS; CPT 44970; principal; 2019-05-20 08:00)
DX: K35.80 Unspecified acute appendicitis (principal); E66.01 Morbid (severe) obesity due to excess calories; I25.10 Atherosclerotic heart disease of native coronary artery without angina pectoris; Z79.4 Long term (current) use of insulin; Z88.8 Allergy status to other drugs, medicaments and biological substances; Z79.899 Other long term (current) drug therapy; J45.909 Unspecified asthma, uncomplicated; G89.29 Other chronic pain; M54.9 Dorsalgia, unspecified; N18.2 Chronic kidney disease, stage 2 (mild); E78.5 Hyperlipidemia, unspecified; R33.8 Other retention of urine; I12.9 Hypertensive chronic kidney disease with stage 1 through stage 4 chronic kidney disease, or unspecified chronic kidney disease; E11.22 Type 2 diabetes mellitus with diabetic chronic kidney disease; D64.9 Anemia, unspecified; G47.33 Obstructive sleep apnea (adult) (pediatric); F32.9 Major depressive disorder, single episode, unspecified
CPT/HCPCS: 12345; 36415; 36416; 36430; 51702; 51798; 74177; 80048; 80053; 81003; 82962; 85025; 85610; 86850; 86900; 87086; 88304; 96372; 96375; 97161; 97530; 99283; A9270; J1644; J1815; J2001; J2270; J2405; J2543; J2704; J2710; J3010; J3490; J7030; J7040; J7799; P9016; Q9967

== ENCOUNTER 2019-05-19 18:27 | Emergency (ER) | payer MEDICAID, SELFPAY | END 2019-05-19 23:18 | disposition admitted as inpatient to this hospital (09) | LOC: ER 06-20 07:18 | PROVIDERS: Emergency Provider Family Medicine; Family Provider Nurse Practitioner; PCP Nurse Practitioner | DX: R10.31 Right lower quadrant pain (principal); K35.80 Unspecified acute appendicitis; Z87.891 Personal history of nicotine dependence; E11.9 Type 2 diabetes mellitus without complications; I10 Essential (primary) hypertension; I25.10 Atherosclerotic heart disease of native coronary artery without angina pectoris; J45.909 Unspecified asthma, uncomplicated | CPT/HCPCS: 74177; 80053; 81003; 85025; 85610; 87086; 96360; 99283; 99285; J7030; J7040; Q9967 ==

== ENCOUNTER → 2022-12-06 08:55 | Outpatient (BNVA) | payer MEDICARE, MEDICAID, SELFPAY | PROVIDERS: Visit Provider Podiatrist Foot & Ankle Surgery | DX: B35.1 Tinea unguium (principal); L85.3 Xerosis cutis; G62.9 Polyneuropathy, unspecified; N18.9 Chronic kidney disease, unspecified; M20.41 Other hammer toe(s) (acquired), right foot; M20.42 Other hammer toe(s) (acquired), left foot; E11.42 Type 2 diabetes mellitus with diabetic polyneuropathy; E11.22 Type 2 diabetes mellitus with diabetic chronic kidney disease; Z79.4 Long term (current) use of insulin | CPT/HCPCS: 11721; 99204 ==

== ENCOUNTER → 2022-12-29 15:34 | Outpatient (BNVA) | payer MEDICARE, MEDICAID, SELFPAY | PROVIDERS: Visit Provider Nurse Practitioner Family | DX: R69 Illness, unspecified (principal); R31.9 Hematuria, unspecified; N18.2 Chronic kidney disease, stage 2 (mild); R39.11 Hesitancy of micturition; L01.00 Impetigo, unspecified; S80.811A Abrasion, right lower leg, initial encounter; L08.9 Local infection of the skin and subcutaneous tissue, unspecified; R32 Unspecified urinary incontinence; S70.312A Abrasion, left thigh, initial encounter; W55.03XA Scratched by cat, initial encounter; S76.311A Strain of muscle, fascia and tendon of the posterior muscle group at thigh level, right thigh, initial encounter; X58.XXXA Exposure to other specified factors, initial encounter | CPT/HCPCS: 80053; 81000; 87086 ==

== ENCOUNTER → 2023-01-05 11:19 | Outpatient (BNVA) | payer MEDICARE, MEDICAID, SELFPAY | PROVIDERS: Visit Provider Nurse Practitioner | DX: E11.9 Type 2 diabetes mellitus without complications (principal); Z79.4 Long term (current) use of insulin; E55.9 Vitamin D deficiency, unspecified | CPT/HCPCS: 80061; 82306; 83036 ==

== ENCOUNTER → 2023-03-04 12:23 | Outpatient (BNVA) | payer MEDICARE, MEDICAID, SELFPAY | PROVIDERS: PCP Nurse Practitioner; Visit Provider Emergency Medicine | DX: N39.0 Urinary tract infection, site not specified (principal); B37.9 Candidiasis, unspecified; R30.0 Dysuria | CPT/HCPCS: 81000; 87086 ==

== ENCOUNTER 2024-07-16 10:19 | Inpatient (IN) | payer MEDICARE, SELFPAY ==
[2024-07-16] VITALS (11 sets, daily range): BP systolic 130–155; BP diastolic 52–77; PULSE 55–84; RESP 14–26; TEMP 36.6–37; O2SAT 78–98; BMI 60.5
--- NOTE | 2024-07-16 10:25 | PC.NURSE ---
PATIENT REMOVED FROM O2 FROM TRANSFER TO COT TO BED UNTIL ABLE TO JACKHAMMER SPLITTER OPERATOR TO VITALS. PATIENT O2 SATURATION 78% ON RA. PATIENT PLACED ON 4 L NC TO MAINTAIN 93%.
--- NOTE | 2024-07-16 10:45 | XRR_ITS ---
PROCEDURE INFORMATION: Exam: XR Chest Exam date and time: 07/16/2024 11:28 AM Age: 69 years old Clinical indication: Shortness of breath; Additional info: SOB TECHNIQUE: Imaging protocol: Radiologic exam of the chest. Views: 1 view. COMPARISON: CR XR chest 1V [id number] 03/15/2019 7:31 PM FINDINGS: Lungs: Mild diffuse interstitial and vascular prominence. Low lung volumes with bronchovascular crowding. Pleural spaces: Bsjcj-qj-uqcrpsvj left pleural effusion. Suspect trace right pleural effusion. No pneumothorax. Heart/Mediastinum: Bilateral hilar prominence (gypgv-maaawjw-okrt-left) likely related to pulmonary vessels rather than lymphadenopathy. Apparent cardiomegaly, accentuated by low lung volumes. Bones/joints: Unremarkable. XR/XR chest 1V portable [id number] IMPRESSION: 1. Mild interstitial pulmonary edema. Possible CHF. 2. Ljhxx-kb-kheoomyq left pleural effusion.
--- NOTE | 2024-07-16 10:46 | ECG_ITS ---
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1955 Requested By: Mariah Suazo Order Number: [id number] Kasandra MD: JESSICA ROBINS Measurements Intervals [place] Rate: 73 P: 52 AR: 209 QRS: -4 QRSD: 114 T: 50 QT: 388 QTc: 429 Interpretive Statements SINUS RHYTHM POSSIBLE ANTERIOR MYOCARDIAL INFARCTION , OF INDETERMINATE AGE [30 ms Q WAVE IN V3/V4, OR R < 0.2 mV IN V4] Compared to ECG 04/08/2017 14:59:32 Myocardial infarct finding now present First degree AV block no longer present Electronically Signed On 07-16-2024 18:13:02 CDT by JESSICA ROBINS [email or web address]
--- NOTE | 2024-07-16 10:46 | W.ED.SOB ---
HPI - SOB/Dyspnea General: Chief Complaint: Shortness of Breath/Dyspnea Stated Complaint: SOB Time Seen by Provider: 07/16/24 10:31 Source: patient Mode of arrival: EMS Limitations: no limitations History of Present Illness: HPI Narrative: Patient is a 69-year-old female with a history of multiple comorbidities including diabetes, morbid obesity with a BMI of over 60, hypertension, hyperlipidemia, obstructive sleep apnea, probable some degree of hypoventilation syndrome, CAD, and CKD who presents to the ED today via EMS complaining of dyspnea. She states 20 years ago she was instructed to start wearing bipap at night but patient could never tolerate this so she has been wearing oxygen at night. She states last month sometime she was admitted in [place] following a fall and found to have kidney disease and had a significantly elevated potassium. She feels like since that visit she has been having to wear oxygen all the time now even during the day. She does feel like her legs are swollen today. No recent illness. No cough/congestion/fevers. MD elicited complaint: shortness of breath Onset (ago): week(s) Timing: constant Severity: moderate Relieving factors: oxygen Associated symptoms: Reports no associated symptoms; Deny abdominal pain, chest congestion, chest pain, fever(s), hemoptysis, lightheadedness, nausea, palpitations, syncope or vomiting Treatment prior to arrival: oxygen Related Data Home Medications ?Medication ?Instructions ?Recorded ?Confirmed atorvastatin 40 mg tablet 1 tab PO DAILY 01/05/23 07/16/24 carvedilol 3.125 mg tablet 3.125 mg PO DAILY 01/05/23 07/16/24 aspirin 81 mg tablet,delayed 81 mg PO DAILY 02/15/23 07/16/24 release gabapentin 100 mg capsule 100 mg PO DAILY 02/15/23 07/16/24 methocarbamol 750 mg tablet 750 mg PO DAILY 02/15/23 07/16/24 amlodipine 5 mg tablet 5 mg PO DAILY 07/16/24 07/16/24 budesonide-formoterol HFA 160 1 puff inhalation DAILY 07/16/24 07/16/24 mcg-4.5 mcg/actuation aerosol inhaler insulin aspart U-100 100 unit/mL See Rx Instructions .Route .COMPLEX 07/16/24 07/16/24 (3 mL) subcutaneous pen insulin glargine 100 unit/mL (3 80 unit SUBCUT BID 07/16/24 07/16/24 mL) subcutaneous pen (Basaglar KwikPen U-100 Insulin) losartan 25 mg tablet 25 mg PO DAILY 07/16/24 07/16/24 Previous Rx's ?Medication ?Instructions ?Recorded isosorbide dinitrate 20 mg tablet 20 mg PO DAILY #30 tabs 02/15/23 propranolol 60 mg capsule,24 60 mg PO DAILY #90 caps 02/15/23 hr,extended release Allergies Allergy/AdvReac Type Severity Reaction Status Date / Time Phenothiazines Allergy Unknown Unknown Verified 03/04/23 12:19 ketorolac (From Toradol) Allergy Shuts down Verified 03/04/23 12:19 Kidneys butorphanol (From Stadol) AdvReac ADR-Halluci Verified 03/04/23 12:19 nating Review of Systems Const: Denies: fever(s), chills, body aches, fatigue or malaise Eyes: Denies: change in vision or blurry vision ENMT: Denies: throat pain, odynophagia, nasal discharge, nasal congestion or sinus pain Card: Reports: edema, swelling of feet/ankles and dyspnea on exertion; Denies: chest pain, palpitations, irregular heart rhythm, lightheadedness, syncope or pre-syncope Resp: Reports: dyspnea; Denies: productive cough, non-productive cough, wheezing, stridor, pain on inspiration, change in phlegm color, hemoptysis or chest congestion GI: Denies: abdominal pain, nausea, vomiting, heartburn or diarrhea : Denies: flank pain or dysuria Musc: Reports: extremity swelling (chronic); Denies: neck pain, back pain or joint pain Skin/Breast: Denies: rash Neuro: Denies: headache(s), numbness in extremities, weakness in extremities or sensory changes PFSH ED PFSH: Medical History (Updated 07/16/24 @ 12:20 by Cristy Perez MD) CKD (chronic kidney disease), stage II Morbid obesity Hyperlipidemia Depression Asthma HTN (hypertension) Diabetes CAD (coronary artery disease) Myocardial infarction Chronic back pain Angina pectoris Surgical History History of appendectomy Hx of cholecystectomy History of heart artery stent Status post stenting x2 in 2017 Family History Other CAD (coronary artery disease) Hypertension Social History Smoking and tobacco/nicotine status: former use of tobacco/nicotine Alcohol intake: never Substance/Drug Use: never Lives independently: Yes service: No Physical Exam Const: COMMON NORMALS: no acute distress, patient oriented x3, no limitations and alert GENERAL APPEARANCE: cooperative NUTRITIONAL APPEARANCE: obese morbidly obese (BMI 60.2) ORIENTATION/CONSCIOUSNESS: Yes awake, Yes oriented to person, Yes oriented to place and Yes oriented to time HENMT: COMMON NORMALS: normocephalic and atraumatic HEAD & SCALP: normal to inspection, normocephalic and atraumatic Neck/C-Spine: COMMON NORMALS: full ROM, no lymphadenopathy, supple, no meningeal signs and no JVD Chest: COMMONS NORMALS: normal inspection of the chest and normal palpation of entire chest wall Resp: COMMON NORMALS: normal respiratory effort AUSCULTATION: diminished lung sounds (poor inspiratory effort) bilateral Cardio: COMMON NORMALS: no JVD, regular rate and regular rhythm RATE: regular rate RHYTHM: regular rhythm GI: COMMON NORMALS: Soft to palpation and non-tender PALPATION: Yes Soft to palpation OTHER: exam limited due to body habitus; ecchymosis from receiving subq heparin during hospitalization last month : COMMON NORMALS: Yes no CVA tenderness BLADDER/KIDNEY EXAM: Yes no CVA tenderness Back/Pelvis: COMMON NORMALS: no CVA tenderness and thoracic and lumbar spine normal to inspection Extremity: COMMON NORMALS: normal to inspection GENERAL: Yes edema Neuro: COMMON NORMALS: patient oriented x3, moves all extremities, no focal motor deficits and no sensory deficits noted SENSORIUM/ORIENTATION: Yes alert, Yes oriented to person, Yes oriented to place and Yes oriented to time MENINGEAL SIGNS: Yes no meningeal signs Skin: COMMON NORMALS: no rashes or lesions noted GENERAL SKIN EXAM: no rashes or lesions noted Course Vital Signs: Vital signs: Vital Signs Temperature 97.8 F 07/16/24 10:21 Pulse Rate 63 07/16/24 11:16 Respiratory Rate 17 07/16/24 11:00 Blood Pressure 153/58 07/16/24 11:00 Pulse Oximetry 98 07/16/24 11:16 Oxygen Delivery Me thod Nasal Cannula 07/16/24 11:00 Oxygen Flow Rate 5 07/16/24 11:00 Fraction of Inspir ed Oxygen 30 07/16/24 11:16 MDM - SOB/Dyspnea Medical Decision Making Patient is a 69-year-old female with multiple comorbidities and overall fairly poor historian here with a main concern of shortness of breath. She states normally she wears oxygen at night but over the past few weeks she has been requiring it during the day. She arrived wearing 4 to 5 L of oxygen. Her ABG showing hypercapnic respiratory failure. Patient was placed on BiPAP. She clinically does appear fluid overloaded with bilateral LE edema and pulmonary edema on her CXR. She is not sure if she carries a diagnosis of congestive heart failure. She does mention at one point that she takes water pills although none listed on her medication list. Blood work here showing a potassium of 5.3. I did give her some Lasix for her swelling as well as some insulin for her elevated blood sugars (she is a known diabetic). This should help with her potassium. No EKG changes. BUN/Cr at baseline. We have requested medical records from [facility]/[place] from her most recent hospitalization there. Patient will require hospitalization. Spoke to Dr. Perez who will admit. Dr. Cartwright aware of patient and will place admit orders. Medical Records I reviewed the patient's medical records. Lab Data I reviewed the patient's lab results. 07/16/24 10:45 07/16/24 10:45 Labs/Radiology: Radiology Impressions Chest X-Ray 07/16/24 10:45 IMPRESSION: 1. Mild interstitial pulmonary edema. Possible CHF. 2. Awhkk-jq-[id number] left pleural effusion. Laboratory Results WBC 9.35 10^3/uL (3.29-11.43) 07/16/24 10:45 RBC 3.36 10^6/uL (3.85-5.65) L 07/16/24 10:45 Hgb 10.00 g/dL (11.27-16.99) L 07/16/24 10:45 Hct 32.7 % (36-47) L 07/16/24 10:45 MCV 97.3 fl (85-98) 07/16/24 10:45 MCH 29.8 pg (27-33) 07/16/24 10:45 MCHC 30.6 g/dL (30-55) 07/16/24 10:45 RDW 13.6 % (12.1-15.1) 07/16/24 10:45 Plt Count 221 10^3/cmm (157-399) 07/16/24 10:45 MPV 10.8 fL (7.4-10.4) H 07/16/24 10:45 Neut % (Auto) 73.2 % 07/16/24 10:45 Lymph % (Auto) 17.3 % 07/16/24 10:45 [place] % (Auto) 7.1 % 07/16/24 10:45 Eos % (Auto) 1.3 % 07/16/24 10:45 Baso % (Auto) 0.2 % 07/16/24 10:45 Neut # (Auto) 6.85 10^3/uL (1.8-7.7) 07/16/24 10:45 Lymph # (Auto) 1.6 10^3/uL (0.8-4.8) 07/16/24 10:45 [place] # (Auto) 0.7 10^3/uL (0.2-0.9) 07/16/24 10:45 Eos # (Auto) 0.1 10^3/uL (0.0-0.8) 07/16/24 10:45 Baso # (Auto) 0.0 10^3/uL (0.0-0.1) 07/16/24 10:45 Nucleated RBC % (auto) 0 % 07/16/24 10:45 Nucleated RBCs # 0.0 /100WBC 07/16/24 10:45 Specimen Type Arterial 07/16/24 10:45 Sample Site Radial, left 07/16/24 10:45 ABG pH 7.28 (7.35-7.45) L 07/16/24 10:45 ABG pCO2 73.0 mmHg (35-45) H* 07/16/24 10:45 ABG pO2 61.4 mmHg (80.0-100.0) L 07/16/24 10:45 ABG HCO3 34.4 mmol/L (22-26) H 07/16/24 10:45 ABG O2 Saturation 88.0 07/16/24 10:45 ABG Base Excess 6.0 mmol/L (-2.0-2.0) H 07/16/24 10:45 Jozef Test Pos 07/16/24 10:45 A-a O2 Gradient 0.2 mmHg (5-10) L 07/16/24 10:45 Hematocrit 32.0 % (37-47) L 07/16/24 10:45 Hgb O2 Saturation 85.8 % (95-100) L 07/16/24 10:45 Carboxyhemoglobin 1.5 %THgb (0.4-20.1) 07/16/24 10:45 Methemoglobin 1.0 % (0.4-1.5) 07/16/24 10:45 Total Hemoglobin 10.4 g/dL (12-16) L 07/16/24 10:45 Sodium 142.0 mmol/L (131-143) 07/16/24 10:45 Potassium 4.8 mmol/L (3.5-5.0) 07/16/24 10:45 Glucose 371.0 mg/dL (70-115) H 07/16/24 10:45 Ionized Calcium 1.3 mmol/L (1.1-1.4) 07/16/24 10:45 O2 Delivery Device Nc 07/16/24 10:45 Latin Dance Instructor ID Gd 07/16/24 10:45 Sodium 138 mmol/L (136-145) 07/16/24 10:45 Potassium 5.3 mmol/L (3.5-5.1) H 07/16/24 10:45 Chloride 100 mmol/L (98-107) 07/16/24 10:45 Carbon Dioxide 31 mmol/L (22-29) H 07/16/24 10:45 Anion Gap 12.3 (5-19) 07/16/24 10:45 BUN 39 mg/dL (8-23) H 07/16/24 10:45 Creatinine 1.3 mg/dL (0.5-0.9) H 07/16/24 10:45 GFR Calculation 40.6 mL/min (90-130) L 07/16/24 10:45 Glucose 344 mg/dL (65-115) H 07/16/24 10:45 Calculated Osmolality 309 mOsm/kg (285-295) H 07/16/24 10:45 Calcium 8.9 mg/dL (8.5-10.5) 07/16/24 10:45 Total Bilirubin 0.5 mg/dL (0.15-1.2) 07/16/24 10:45 AST 18 U/L (0-32) 07/16/24 10:45 ALT 31 U/L (0-33) 07/16/24 10:45 Alkaline Phosphatase 146 U/L (35-105) H 07/16/24 10:45 NT-Pro-B Natriuret Pep 1030 pg/mL (0-125) H 07/16/24 10:45 Total Protein 7.2 g/dL (6.6-8.7) 07/16/24 10:45 Albumin 3.6 g/dL (3.5-5.2) 07/16/24 10:45 Globulin 3.6 g/dL (1.3-4.6) 07/16/24 10:45 Procalcitonin 0.04 ng/mL (0-0.5) 07/16/24 10:45 Urine Color Yellow (Yellow) 07/16/24 10:00 Urine Appearance Clear (CLEAR) 07/16/24 10:00 Urine pH 5.0 (5-7) 07/16/24 10:00 Ur Specific [place] 1.008 (1.005-1.030) 07/16/24 10:00 Urine Protein Negative (Negative) 07/16/24 10:00 Urine Glucose (UA) Negative (Normal) 07/16/24 10:00 Urine Ketones Negative (Negative) 07/16/24 10:00 Urine Blood Negative (Negative) 07/16/24 10:00 Urine Nitrate Negative (Negative) 07/16/24 10:00 Urine Bilirubin Negative (Negative) 07/16/24 10:00 Urine Urobilinogen 0.2 mg/dL (Negative) 07/16/24 10:00 Ur Leukocyte Esterase Negative (Negative) 07/16/24 10:00 Urine RBC 0-2 /hpf (0-2) 07/16/24 10:00 Urine WBC 0-5 /hpf (0-5) 07/16/24 10:00 Ur Squamous Epith Cells 0-5 /hpf (0-5) 07/16/24 10:00 Amorphous Sediment Not Reportable 07/16/24 10:00 Urine Bacteria None seen /hpf (NONE) 07/16/24 10:00 Hyaline Casts 2.46 /lpf 07/16/24 10:00 Serum Ketones Negative (Negative) 07/16/24 10:45 All radiology interpretation(s) finalized by discharge Discharge Plan Discharge Patient Disposition: Admitted As Inpatient Clinical Impression: Morbid obesity, CKD (chronic kidney disease), stage II, Acute hypercapnic respiratory failure Diabetes Qualifiers: Diabetes mellitus type: type 2 Diabetes mellitus detention insulin use: with detention use Diabetes mellitus complication status: without complication Qualified Code(s): E11.9 - Type 2 diabetes mellitus without complications Congestive heart failure Qualifiers: Heart failure type: unspecified Heart failure chronicity: unspecified Qualified Code(s): I50.9 - Heart failure, unspecified Condition: Stable Coding Level of Care Code ED Dialysis Clinical Manager for Jodi Bah
[2024-07-16 10:52] LABS: Basophils % 0.2 %; Eosinophils # 0.1 10^3/uL (0.0-0.8); Eosinophils % 1.3 %; Hematocrit 32.7 % (36-47); Lymphocytes # 1.6 10^3/uL (0.8-4.8); Lymphocytes % 17.3 %; Mean Corpuscular HGB Conc 30.6 g/dL (30-55); Mean Corpuscular Hemoglobin 29.8 pg (27-33); Mean Corpuscular Volume 97.3 fl (85-98); Mean Platelet Volume 10.8 fL (7.4-10.4); Monocytes # 0.7 10^3/uL (0.2-0.9); Monocytes % 7.1 %; Neutrophils # 6.85 10^3/uL (1.8-7.7); Neutrophils % 73.2 %; Nucleated Red Blood Cells % 0 %; Platelet Count 221 10^3/cmm (157-399); Red Blood Count 3.36 10^6/uL (3.85-5.65); Red Cell Distribution Width 13.6 % (12.1-15.1); White Blood Count 9.35 10^3/uL (3.29-11.43)
[2024-07-16 11:04] LABS: ABG PH Result 7.28 (7.35-7.45); Alveolar-Arterial Oxygen Gradi 0.2 mmHg (5-10); Blood Gas Allen Test Pos; Blood Gas Operator Identificat GD; Blood Gas Sample Site Radial, left; Blood Gas Sample Type Arterial; Carboxyhemoglobin 1.5 %THgb (0.4-20.1); HCO3 ABG 34.4 mmol/L (22-26); HGB O2 Sat 85.8 % (95-100); Ionized Calcium Level - ABG 1.3 mmol/L (1.1-1.4); Oxygen Device NC; PO2 ABG 61.4 mmHg (80.0-100.0); Potassium Level - ABG 4.8 mmol/L (3.5-5.0); Total Hemoglobin 10.4 g/dL (12-16)
[2024-07-16 11:14] LABS: Bilirubin Urine Negative (Negative); Blood Urine Negative (Negative); Glucose Urine UA Negative (Normal); Ketones Urine Negative (Negative); Leukocyte Esterase Urine Negative (Negative); Nitrate Urine Negative (Negative); Protein Urine Negative (Negative); Specific Gravity, Urine 1.008 (1.005-1.030); Urine Appearance Clear (CLEAR); Urine Color Yellow (Yellow); Urobilinogen Urine 0.2 mg/dL (Negative)
[2024-07-16 11:19] LABS: NT Pro B Type Natriuretic Pept 1030 pg/mL (0-125); Procalcitonin 0.04 ng/mL (0-0.5)
[2024-07-16 11:20] LABS: Ketone (Acetest) Serum Negative (Negative)
[2024-07-16 11:20] LABS: Add Urine Microscopic? YES; Bacteria Urine None Seen /hpf; Hyaline Casts Urine 2.46 /lpf; RBC Urine 0-2 /hpf (0-2); Squamous Epithelial Cell Urine 0-5 /hpf (0-5); WBC Urine 0-5 /hpf (0-5)
[2024-07-16 11:30] LABS: Alanine Aminotransferase 31 U/L (0-33); Albumin Level 3.6 g/dL (3.5-5.2); Alkaline Phosphatase 146 U/L (35-105); Anion Gap 12.3 (5-19); Aspartate Amino Transferase 18 U/L (0-32); Blood Urea Nitrogen 39 mg/dL (8-23); Calcium 8.9 mg/dL (8.5-10.5); Carbon Dioxide 31 mmol/L (22-29); Chloride 100 mmol/L (98-107); Creatinine Clr Calc Pharmacy 53.8673; Globulin 3.6 g/dL (1.3-4.6); Glomerular Filtration Rate 40.6 mL/min (90-130); Glucose 344 mg/dL (65-115); Osmolality Calculated 309 mOsm/kg (285-295); Potassium 5.3 mmol/L (3.5-5.1); Sodium 138 mmol/L (136-145); Total Bilirubin 0.5 mg/dL (0.15-1.2); Total Protein 7.2 g/dL (6.6-8.7)
--- NOTE | 2024-07-16 12:06 | PM.HP ---
Providers/Chief Complaint Admitting Physician: Cristy Perez MD Primary Care Provider: Génesis Junior APN Chief Complaint: SOB History of Present Illness Yuridia Whitmore is a 69 year old female who presented to the emergency room today with chief complaint of difficulty breathing. She has a complex recent history. She lives locally in the [place] area until a couple of years ago. She moved away to [facility] to live with her cousin and did not really have much in the way of medical care during that timeframe. She did continue to get prescriptions filled through a service and had a provider that was refilling what she had been on here. From what I can gather she had run out of her medication and in June started having increasing medical problems with frequent falls incontinence and difficulty breathing. She was admitted to [facility] in [place] on June 24 after 1 of these falls. She was noted to have fluid overload and was given IV diuresis and monitored for a couple of days. At discharge she was discharged to a skilled facility in [place] and was there for couple of weeks before being discharged back to her cousin's house. That discharge was recent and after she got back to her cousin's house she continued to have increased fall risk and difficulty attending to her activities of daily living such as toileting without accidents and her cousin ended up driving her back to this area to live with her daughter and [place]. They did not bring her oxygen with her. She has been on oxygen predominantly at night for some time for treatment of sleep apnea. She had sleep study in 2017 that recommended BiPAP that she was intolerant of. She has been so short of breath the last couple of days since being without her oxygen that when she arrived at her daughter's house she started using her daughter's oxygen more. That oxygen tank ran out eventually prompting the ED visit today. Saturations at home were reported to be in the 60s. On arrival here saturations were documented in the upper 70s at 78% and she was in significant distress. Initial ABG showed 7.2 8//61/34. Calculated AA gradient was low. She was put on BiPAP therapy and given some IV diuresis and request was made for admission to medical floor. Review of chart from stay at [facility] shows the following bits of information not included above: Had some hyperkalemia on presentation and losartan was subsequently held Discharge from hospital on torsemide but reports that long-term was giving her furosemide which did not work as well. Other discharge medications included amlodipine, aspirin, atorvastatin, carvedilol, gabapentin, insulin aspartate and lantus, isosorbide dinitrate, losartan, magnesium, methocarbamol, multivitamin, and vitamin D3. Losartan was to be held until follow-up with nephrology due to hyperkalemia at presentation. Looking at available external medications history and records from [facility], she has been prescribed both carvedilol once a day as well as twice a day and also prescribed propranolol daily. I do not hav eDC list from long-term Had CT of the head that showed no acute intracranial process though did reveal mild cortical atrophy and white matter changes consistent with chronic microvascular ischemic processes Had echocardiogram that showed ejection fraction of 60% with grade 1 diastolic dysfunction mild tricuspid regurgitation and estimated right atrial pressures of 5 to 10 mmHg. No mitral or aortic stenosis or regurgitation appreciated. BNP was normal at 800. Troponins were negative. Creatinine varied from 1.15-1.8 with variation due to initiation or holding of diuresis based on available information. 06/24 was ~1.4, after diuresis to 1.15. On 07/02, was 1.8 (after pt says she did not received diuresis for a few days) Hemoglobin was 10.3 Negative urine drug screen on June 26 Was on 2L bnc at night only prior to hosptial stay At [facility] was on 3L then later 2L bnc continuos; oxygen concentrator is still in [place] Copy of records reviewed in paper chart. Presently patient is feeling better than she did on arrival but remains quite edematous and short of breath with any amount of movement. She denies any recent chest pains. She does have a history of coronary artery disease with stent placement x [address] Horvath in the LAD and RCA. She also had angioplasty of a first diagonal branch. She has not been particularly active except for when she was doing therapy at the long-term. She reports doing well with basic transfers and not having chest pain or difficulty breathing anywhere close to how bad it was today and yesterday when she was there. She indicates that her blood sugars have been more difficult to control since she was in the hospital. She does not recall her heart rate being as low as it was today previously. A Rivers catheter was placed in the emergency room. Since arrival to the floor she has had a slight pink tinge to it. Denies any blood in her urine or blood in her stools previously though reports at times having some small specks of blood on the pads in the long-term. Does still have her uterus. Does not feel that the blood-tinged that she saw was related to vaginal bleeding. Review of Systems General: Reports: Other (ROS as per HPI or as otherwise noted here) Const: Reports: change in weight (gain, increase girth); Denies: fever(s) ENMT: Denies: throat pain or nasal congestion Card: Reports: edema, lightheadedness, dyspnea on exertion and orthopnea; Denies: chest pain Resp: Reports: dyspnea and non-productive cough; Denies: pain on inspiration or hemoptysis GI: Denies: nausea or vomiting : Denies: difficulty voiding, dysuria, hematuria or vaginal bleeding Musc: Reports: back pain, extremity pain, joint pain and muscle weakness Neuro: Reports: weakness in extremities (due to edema, non focal, generalized weakness) and frequent falls Endo: Reports: other (high blood sugars lately, no recent A1c or lipid panel) Manish/Lymph: Denies: easy bruising or easy bleeding Medications/Allergies Home Medications ?Medication ?Instructions ?Recorded ?Confirmed ?Last Taken ?Type atorvastatin 40 mg tablet 1 tab PO DAILY 01/05/23 07/16/24 07/16/24 History carvedilol 3.125 mg tablet 3.125 mg PO DAILY 01/05/23 07/16/24 07/16/24 History aspirin 81 mg tablet,delayed 81 mg PO DAILY 02/15/23 07/16/24 Unknown History release gabapentin 100 mg capsule 100 mg PO DAILY 02/15/23 07/16/24 07/16/24 History isosorbide dinitrate 20 mg tablet 20 mg PO DAILY #30 tabs 02/15/23 07/16/24 07/16/24 Rx methocarbamol 750 mg tablet 750 mg PO DAILY 02/15/23 07/16/24 Unknown History propranolol 60 mg capsule,24 60 mg PO DAILY #90 caps 02/15/23 07/16/24 07/16/24 Rx hr,extended release amlodipine 5 mg tablet 5 mg PO DAILY 07/16/24 07/16/24 07/16/24 History budesonide-formoterol HFA 160 1 puff inhalation DAILY 07/16/24 07/16/24 07/16/24 History mcg-4.5 mcg/actuation aerosol inhaler insulin aspart U-100 100 unit/mL See Rx Instructions .Route .COMPLEX 07/16/24 07/16/24 Unknown History (3 mL) subcutaneous pen insulin glargine 100 unit/mL (3 80 unit SUBCUT BID 07/16/24 07/16/24 07/16/24 History mL) subcutaneous pen (Basaglar KwikPen U-100 Insulin) losartan 25 mg tablet 25 mg PO DAILY 07/16/24 07/16/24 07/16/24 History Allergies Allergy/AdvReac Type Severity Reaction Status Date / Time Phenothiazines Allergy Unknown Unknown Verified 03/04/23 12:19 ketorolac (From Toradol) Allergy Shuts down Verified 03/04/23 12:19 Kidneys butorphanol (From Stadol) AdvReac ADR-Halluci Verified 03/04/23 12:19 nating PFSH Acute PFSH: Medical History (Updated 07/16/24 @ 16:15 by Cristy Perez MD) COPD with asthma remote tobacco use History of sleep study 12/2016 Bipap recommended JODI (obstructive sleep apnea) intolerant of bipap History of echocardiogram 06/2024 [facility] in [place], [place], EF 60%, grade 1 diastolic dysfunction, no wall motion abnormalities, RAP 5-10mmHg, no /MS, mild TR Kidney stones Diabetes mellitus type 2, insulin dependent Chronic kidney disease, stage 3b Morbid obesity BMI 60 Hyperlipidemia Depression HTN (hypertension) CAD (coronary artery disease) LAD and RCA stents, angioplasty to 1st diagonal in [address] Horvath Chronic back pain Surgical History (Updated 07/16/24 @ 16:01 by Cristy Perez MD) History of colonoscopy 2018 History of D&C 2013 History of cataract surgery History of carpal tunnel surgery of right wrist History of appendectomy Hx of cholecystectomy History of heart artery stent Status post stenting x2 in 2017 Family History Other CAD (coronary artery disease) Hypertension Social History (Updated 07/16/24 @ 15:18 by Cristy Perez MD) Smoking and tobacco/nicotine status: former use of tobacco/nicotine Alcohol intake: never Substance/Drug Use: never Vitals/I&O/Wt Last Vital Signs Temp 97.8 F 07/16/24 10:21 Pulse 63 07/16/24 11:16 Resp 17 07/16/24 11:00 BP 153/58 07/16/24 11:00 Pulse Ox 98 07/16/24 11:16 O2 Del Method Nasal Cannula 07/16/24 11:00 O2 Flow Rate 5 07/16/24 11:00 FiO2 30 07/16/24 11:16 Weight last 48 hrs Weight 140.614 kg Physical Exam Narrative: Patient is awake and alert, able to provide history. Morbidly obese. Normocephalic. Extraocular movements are intact. Neck is large but supple. Lungs are remarkable for decreased breath sounds. No wheezes or rhonchi noted. Distant heart sounds, bradycardic rhythm. Capillary refill is brisk. Abdomen is soft, positive bowel sounds, nontender. Extremities 4+ edema to the abdominal area. Skin of the upper extremities is dry. Has loss of hair noted to lower extremities but not extensive stasis changes otherwise. Speech is clear, face symmetric, moves all extremities. Gait not currently assessed. Data 07/16/24 10:45 07/16/24 10:45 Other Labs: Radiology Impressions Chest X-Ray 07/16/24 10:45 IMPRESSION: 1. Mild interstitial pulmonary edema. Possible CHF. 2. [id number] left pleural effusion. Laboratory Results WBC 9.35 10^3/uL (3.29-11.43) 07/16/24 10:45 RBC 3.36 10^6/uL (3.85-5.65) L 07/16/24 10:45 Hgb 10.00 g/dL (11.27-16.99) L 07/16/24 10:45 Hct 32.7 % (36-47) L 07/16/24 10:45 MCV 97.3 fl (85-98) 07/16/24 10:45 MCH 29.8 pg (27-33) 07/16/24 10:45 MCHC 30.6 g/dL (30-55) 07/16/24 10:45 RDW 13.6 % (12.1-15.1) 07/16/24 10:45 Plt Count 221 10^3/cmm (157-399) 07/16/24 10:45 MPV 10.8 fL (7.4-10.4) H 07/16/24 10:45 Neut % (Auto) 73.2 % 07/16/24 10:45 Lymph % (Auto) 17.3 % 07/16/24 10:45 Mckean % (Auto) 7.1 % 07/16/24 10:45 Eos % (Auto) 1.3 % 07/16/24 10:45 Baso % (Auto) 0.2 % 07/16/24 10:45 Neut # (Auto) 6.85 10^3/uL (1.8-7.7) 07/16/24 10:45 Lymph # (Auto) 1.6 10^3/uL (0.8-4.8) 07/16/24 10:45 Mckean # (Auto) 0.7 10^3/uL (0.2-0.9) 07/16/24 10:45 Eos # (Auto) 0.1 10^3/uL (0.0-0.8) 07/16/24 10:45 Baso # (Auto) 0.0 10^3/uL (0.0-0.1) 07/16/24 10:45 Nucleated RBC % (auto) 0 % 07/16/24 10:45 Nucleated RBCs # 0.0 /100WBC 07/16/24 10:45 Specimen Type Arterial 07/16/24 10:45 Sample Site Radial, left 07/16/24 10:45 ABG pH 7.28 (7.35-7.45) L 07/16/24 10:45 ABG pCO2 73.0 mmHg (35-45) H* 07/16/24 10:45 ABG pO2 61.4 mmHg (80.0-100.0) L 07/16/24 10:45 ABG HCO3 34.4 mmol/L (22-26) H 07/16/24 10:45 ABG O2 Saturation 88.0 07/16/24 10:45 ABG Base Excess 6.0 mmol/L (-2.0-2.0) H 07/16/24 10:45 Jozef Test Pos 07/16/24 10:45 A-a O2 Gradient 0.2 mmHg (5-10) L 07/16/24 10:45 Hematocrit 32.0 % (37-47) L 07/16/24 10:45 Hgb O2 Saturation 85.8 % (95-100) L 07/16/24 10:45 Carboxyhemoglobin 1.5 %THgb (0.4-20.1) 07/16/24 10:45 Methemoglobin 1.0 % (0.4-1.5) 07/16/24 10:45 Total Hemoglobin 10.4 g/dL (12-16) L 07/16/24 10:45 Sodium 142.0 mmol/L (131-143) 07/16/24 10:45 Potassium 4.8 mmol/L (3.5-5.0) 07/16/24 10:45 Glucose 371.0 mg/dL (70-115) H 07/16/24 10:45 Ionized Calcium 1.3 mmol/L (1.1-1.4) 07/16/24 10:45 O2 Delivery Device Nc 07/16/24 10:45 Attorney Law Clerk ID Gd 07/16/24 10:45 Sodium 138 mmol/L (136-145) 07/16/24 10:45 Potassium 5.3 mmol/L (3.5-5.1) H 07/16/24 10:45 Chloride 100 mmol/L (98-107) 07/16/24 10:45 Carbon Dioxide 31 mmol/L (22-29) H 07/16/24 10:45 Anion Gap 12.3 (5-19) 07/16/24 10:45 BUN 39 mg/dL (8-23) H 07/16/24 10:45 Creatinine 1.3 mg/dL (0.5-0.9) H 07/16/24 10:45 GFR Calculation 40.6 mL/min (90-130) L 07/16/24 10:45 Glucose 344 mg/dL (65-115) H 07/16/24 10:45 Calculated Osmolality 309 mOsm/kg (285-295) H 07/16/24 10:45 Calcium 8.9 mg/dL (8.5-10.5) 07/16/24 10:45 Total Bilirubin 0.5 mg/dL (0.15-1.2) 07/16/24 10:45 AST 18 U/L (0-32) 07/16/24 10:45 ALT 31 U/L (0-33) 07/16/24 10:45 Alkaline Phosphatase 146 U/L (35-105) H 07/16/24 10:45 NT-Pro-B Natriuret Pep 1030 pg/mL (0-125) H 07/16/24 10:45 Total Protein 7.2 g/dL (6.6-8.7) 07/16/24 10:45 Albumin 3.6 g/dL (3.5-5.2) 07/16/24 10:45 Globulin 3.6 g/dL (1.3-4.6) 07/16/24 10:45 Procalcitonin 0.04 ng/mL (0-0.5) 07/16/24 10:45 Urine Color Yellow (Yellow) 07/16/24 10:00 Urine Appearance Clear (CLEAR) 07/16/24 10:00 Urine pH 5.0 (5-7) 07/16/24 10:00 Ur Specific [place] 1.008 (1.005-1.030) 07/16/24 10:00 Urine Protein Negative (Negative) 07/16/24 10:00 Urine Glucose (UA) Negative (Normal) 07/16/24 10:00 Urine Ketones Negative (Negative) 07/16/24 10:00 Urine Blood Negative (Negative) 07/16/24 10:00 Urine Nitrate Negative (Negative) 07/16/24 10:00 Urine Bilirubin Negative (Negative) 07/16/24 10:00 Urine Urobilinogen 0.2 mg/dL (Negative) 07/16/24 10:00 Ur Leukocyte Esterase Negative (Negative) 07/16/24 10:00 Urine RBC 0-2 /hpf (0-2) 07/16/24 10:00 Urine WBC 0-5 /hpf (0-5) 07/16/24 10:00 Ur Squamous Epith Cells 0-5 /hpf (0-5) 07/16/24 10:00 Amorphous Sediment Not Reportable 07/16/24 10:00 Urine Bacteria None seen /hpf (NONE) 07/16/24 10:00 Hyaline Casts 2.46 /lpf 07/16/24 10:00 Serum Ketones Negative (Negative) 07/16/24 10:45 A&P Assessment and plan (1) Acute respiratory failure with hypoxia and hypercapnia: Does not carry a diagnosis of chronic respiratory failure but strongly suspect that she has a degree of chronic respiratory failure related to untreated sleep apnea, obesity hypoventilation plus or minus obstructive disease from remote tobacco use. Has prescription for inhaler. No current tobacco use. Has chronic oxygen for nocturnal use but has been using during waking hours recently. Has been unable to tolerate home bipap in past. Presently with respiratory acidosis, chronic and acute, possibly due to increased oxygen use, with metabolic acidosis and alkalosis. Clinically does not appear to have acute COPD process contributing but is a consideration given history. - Continue bipap as tolerates - Oxygen therapy for a goal saturation of 90-92% currently - Diuresis - Monitor ABGs until improves or stabilizes - Breathing treatments as needed (2) Congestive heart failure: Acute on chronic diastolic CHF. Currently significantly total body volume overloaded. Presumptively assume this is due to lack of diuresis with travel back to [place] from [place] and since discharge from the hospital there. Does have a history of coronary artery disease with prior stents but does not describe unstable angina. Has limited activity however. - Diuresis - Strict I's and O's and daily weights - Continue ARB if blood pressure and renal function allow Qualifiers: Heart failure chronicity: acute on chronic Heart failure type: diastolic Qualified Code(s): I50.33 - Acute on chronic diastolic (congestive) heart failure (3) Chronic kidney disease, stage 3b: Baseline creatinine around 1.4 per available records. Review of records from [place] showed a range of creatinine 1.15-1.8 that seem to vary with initiation of diuresis. Highest recorded values were after discharge from [facility]. She had been prescribed torsemide at discharge to skilled facility but I am not able to discern if she was taking this medication or had stopped it prior to the most recent labs being drawn. - Monitor renal function and urine output with diuretic therapy - Rivers initially given comorbidities; reviewed increased risk of UTI and need to remove as soon as feasible - Monitor potassium levels closely for need for oral replacement (4) Class 3 severe obesity with body mass index (BMI) of 60.0 to 69.9 in adult: Is not chronically on oxygen and review of records from [place] showed saturations 92% on room air in the one time I was able to find values. She does typically use oxygen at night in place of bipap for JODI managment. I strongly suspect that there is a component of obesity hypoventilation and likely has chronic hypoxemia when awake or with exerion that has not been recognized due to limited medical care from available history. Currently exacerbated by above. - Dietitian consultation to assist with optimizing nutritional intake in light of comorbidities and current BMI levels - Will need to be careful normalizing oxygen values, current goal oxygen saturation around 92% Qualifiers: Obesity type: with alveolar hypoventilation Serious obesity comorbidity presence: with serious comorbidity Qualified Code(s): E66.813 - Obesity, class 3; E66.2 - Morbid (severe) obesity with alveolar hypoventilation; Z68.44 - Body mass index [BMI] 60.0-69.9, adult (5) CAD (coronary artery disease): Has to coronary stents from 2017. Recent echocardiogram as already noted with no wall motion abnormalities. Cardiac enzymes when in [facility] were normal though I only saw 1 value. Current EKG with nonspecific ST changes. Has bradycardia noted but has been taking two beta blockers for a while. - Check serial cardiac enzymes and EKGs - Currently not repeating echocardiogram as was just done at the end of June though if does not improve with diuresis or clinically worsens otherwise may consider - Continue home aspirin, statin, beta-sigrid in the form of carvedilol and ARB plus isosorbide as blood pressure and kidney function allows - Holding home amlodipine, propranolol currently, sounds like double beta blockade may have a mis-understanding of reasons for medication based on available information Qualifiers: Associated angina: with stable angina Coronary Disease-Associated Artery/Lesion type: [place] artery [place] vs. transplanted heart: [place] heart Qualified Code(s): I25.118 - Atherosclerotic heart disease of [place] coronary artery with other forms of angina pectoris (6) Anemia: Anemia of chronic kidney disease related to poorly controlled diabetes mellitus. No reported bleeding. There may be a delusional component from volume overload currently though values are consistent with what was identified in [place] recently. - Recheck hemoglobin in the morning, monitor for gross bleeding - Check TIBC - Anticipate need for iron replacement so will start on oral iron Qualifiers: Anemia type: due to chronic kidney disease Chronic kidney disease stage: stage 3 (moderate) Chronic kidney disease stage 3 subtype: stage 3b (GFR 30-44) Qualified Code(s): N18.32 - Chronic kidney disease, stage 3b; D63.1 - Anemia in chronic kidney disease (7) Diabetes mellitus type 2, insulin dependent: Has associated chronic comorbidities of chronic kidney disease stage IIIb, hyperglycemia with poor control, peripheral neuropathy on chronic gabapentin. Is prescribed twice daily Lantus and sliding scale insulin aspartate. - Will start off with Lantus at 50 units twice a day and moderate dose sliding scale insulin, adjusting based on blood sugar values - Check hemoglobin A1c as will give a better idea of sugars on an ongoing basis and outpatient management needs - Continue home gabapentin for neuropathy (8) HTN (hypertension): Chronically prescribed different medications though compliance is unclear at this time. Has amlodipine, carvedilol, isosorbide dinitrate, losartan, propranolol and has recently also been prescribed torsemide. 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: Not clinically acute based on available information - Breathing treatments as needed (11) JODI (obstructive sleep apnea): Intolerant of home bipap, uses nocturnal oxygen - Discussed with patient importance of treating sleep apnea for overall cardiopulmonary health - She is willing to consider trying bipap at home; have ordered bipap based on prior sleep study and ABG today Plan Inpatient admission Plan of care as noted above VTE prophylaxis: Lovenox at 30mg daily due to renal function Antibiotics: none currently Pending studies: am A1c, Lipid, Tsh; serial cardiac enzumes, am BMP, CBC Telemetry: ordered due to CHF Rivers: ordered pastor to diuresis and CKD, respiratory status Line(s): peripheral IVs Disposition plan: Home with outpatient follow up anticipated, would benefit from home Bipap if would use, has sleep study from 2017 showing need and hypoxemia here here with PO2 61, needs continuous oxygen for home use as well. Additionally will need clarification of medications for Mrs Whitmore to take given variances between lists at [facility] and what patient reports taking. Code Status: Full Code Supportive care otherwise Findings, concerns and plans were discussed with patient as well as her daughter Nasreen by phone and they were given an opportunity to ask questions PDMP PDMP Reviewed: Last Reviewed 07/16/24 19:16 by Cristy Perez MD Attestations Medical Necessity Statement*: Anticipated stay greater than two midnights in this patient presenting with hypercapnic and hypoxic respiratory failure. I am sure she has a chronic component but she has not had previous acute presentation with similar findings. Currently requiring BiPAP therapy in addition to IV diuresis. She has acute on chronic CHF and other comorbidities creating a degree of complexity and overall management that will take some time to sort out for optimal outpatient management. Coding Level of Care Code 13300 High MDM includes number and complexity of problems actively addressed during encounter (CHF, acute; respiratory failure acute; bradycardia new; DM/HTN/BMI 60), amount and/or complexity of data reviewed/ordered [ previous or external records ([facility]), resulted lab(s)/test(s) (here) and independent historian (daughter)] and described risk of complication, morbidity or mortality of management (respiratory monitoring,cardiac monitoring, discussion of end of life care, importance of bipap) as documented Diagnoses Acute respiratory failure with hypoxia and hypercapnia J96.01; J96.02 Acute on chronic diastolic congestive heart failure I50.33 Heart failure chronicity: acute on chronic Heart failure type: diastolic Chronic kidney disease, stage 3b N18.32 Class 3 obesity with alveolar hypoventilation, serious comorbidity, and body mass index (BMI) of 60.0 to 69.9 in adult E66.813; E66.2; Z68.44 Obesity type: with alveolar hypoventilation Serious obesity comorbidity presence: with serious comorbidity Coronary artery disease of [place] artery of [place] heart with stable angina pectoris I25.118 Associated angina: with stable angina Coronary Disease-Associated Artery/Lesion type: [place] artery [place] vs. transplanted heart: [place] heart Anemia due to stage 3b chronic kidney disease N18.32; D63.1 Anemia type: due to chronic kidney disease Chronic kidney disease stage: stage 3 (moderate) Chronic kidney disease stage 3 subtype: stage 3b (GFR 30-44) Diabetes mellitus type 2, insulin dependent E11.9; Z79.4 Primary hypertension I10 Hypertension type: primary hypertension Mixed hyperlipidemia E78.2 Hyperlipidemia type: mixed hyperlipidemia COPD with asthma J44.89 JODI (obstructive sleep apnea) G47.33
[2024-07-16] MEDS: FUROsemide 10 mg/mL SDV 10mL 60 MG IVP (12:31)
[2024-07-16] MEDS: insulin regular-human 100 units/1 mL 10 UNIT IVP (12:32)
--- NOTE | 2024-07-16 15:20 | ECG_ITS ---
[employer] Test Date: 2024-07-16 Pat Name: Yuridia Whitmore Department: Room: 108 Gender: Female Manager Immunology: : 1955 Requested By: Cristy Perez Order Number: [id number] Kasandra MD: JESSICA ROBINS Measurements Intervals [place] Rate: 60 P: 157 NE: 207 QRS: -20 QRSD: 98 T: 93 QT: 408 QTc: 408 Interpretive Statements ECTOPIC ATRIAL RHYTHM POSSIBLE ANTERIOR MYOCARDIAL INFARCTION , OF INDETERMINATE AGE [30 ms Q WAVE IN V3/V4, OR R < 0.2 mV IN V4] Compared to ECG 07/16/2024 10:24:00 Ectopic atrial rhythm now present Sinus rhythm no longer present Myocardial infarct finding still present Electronically Signed On 07-16-2024 18:04:58 CDT by JESSICA ROBINS [id number]
[2024-07-16 16:15] LABS: Glucose Point of Care 229 mg/dL (70-110)
[2024-07-16] MEDS: insulin lispro 100 unit/1 mL SUBCUT ×2 (16:17→21:58)
[2024-07-16] MEDS: enoxaparin 30 mg/0.3 mL Syringe SUBCUT (16:17)
[2024-07-16] MEDS: docusate sodium 100 mg Capsule PO (16:18)
[2024-07-16 16:40] LABS: Troponin(5th) Baseline 30 ng/L (0-10)
[2024-07-16 17:11] LABS: ABG PCO2 59.6 mmHg (35-45); ABG PH Result 7.39 (7.35-7.45); Alveolar-Arterial Oxygen Gradi 8.3 mmHg (5-10); Arterial Blood Gas Hematocrit 30.8 % (37-47); Base Excess ABG 9.8 mmol/L (-2.0-2.0); Blood Gas Allen Test Pos; Blood Gas Operator Identificat GD; Blood Gas Sample Site Radial, left; Blood Gas Sample Type Arterial; Carboxyhemoglobin 1.3 %THgb (0.4-20.1); HCO3 ABG 36.4 mmol/L (22-26); HGB O2 Sat 94.5 % (95-100); Ionized Calcium Level - ABG 1.2 mmol/L (1.1-1.4); Methemoglobin 0.4 % (0.4-1.5); Oxygen Device BIPAP; Oxygen Saturation ABG 96.2; PO2 ABG 77.1 mmHg (80.0-100.0); PO2 FiO2 Ratio Arterial Blood 257; Potassium Level - ABG 4.4 mmol/L (3.5-5.0)
--- NOTE | 2024-07-16 17:20 | ECG_ITS ---
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 Measurements Intervals [place] Rate: 62 P: 66 [place]: 214 QRS: 2 QRSD: 88 T: 43 QT: 392 QTc: 401 Interpretive Statements SINUS RHYTHM WITH FIRST DEGREE AV BLOCK Compared to ECG 07/16/2024 16:36:22 First degree AV block now present Ectopic atrial rhythm no longer present Myocardial infarct finding no longer present Electronically Signed On 07-17-2024 19:30:05 CDT by Ruben Coyle M.D. [email or web address]
[2024-07-16 18:57] LABS: Troponin 5 2HR 34.67 ng/L (0-10); Troponin 5 2HR Delta 4.67 ABS# (0-10)
[2024-07-16] MEDS: carvedilol 3.125 mg Tablet PO (20:32)
[2024-07-16] MEDS: atorvastatin 40 mg Tablet PO (20:32)
[2024-07-16 20:45] LABS: Glucose Point of Care 217 mg/dL (70-110)
[2024-07-16] MEDS: ipratropium-albuterol 3 mL Neb INHALATION (20:58)
[2024-07-16] MEDS: budesonide 0.5 mg/2 mL Neb INHALATION (20:58)
[2024-07-16] MEDS: insulin glargine 100 units/1 mL 50 UNIT SUBCUT (21:57)
--- NOTE | 2024-07-16 22:06 | ECG_ITS ---
[facility] Test Date: 2024-07-16 Pat Name: Yuridia Whitmore Department: Room: 108 Gender: Female Security Monitor: : 1955 Requested By: Cristy Perez Order Number: [id number] Kasandra MD: Ruben Coyle M.D. Measurements Intervals [place] Rate: 49 P: 55 AR: 212 QRS: -1 QRSD: 88 T: 46 QT: 428 QTc: 390 Interpretive Statements SINUS BRADYCARDIA WITH FIRST DEGREE AV BLOCK POSSIBLE ANTERIOR MYOCARDIAL INFARCTION , OF INDETERMINATE AGE [30 ms Q WAVE IN V3/V4, OR R < 0.2 mV IN V4] Compared to ECG 07/16/2024 18:27:58 Myocardial infarct finding now present Sinus rhythm no longer present Electronically Signed On 07-17-2024 19:29:24 CDT by Ruben Coyle M.D. [email or web address]
[2024-07-16 22:38] LABS: Troponin 5 6HR 34.65 ng/L (0-10); Troponin 5 6HR Delta 4.65 ng/L (0-12)
[2024-07-17] VITALS (12 sets, daily range): BP systolic 110–152; BP diastolic 46–63; PULSE 56–77; RESP 15–20; TEMP 36.8–37.2; O2SAT 92–96
[2024-07-17 03:37] LABS: ABG PCO2 61.2 mmHg (35-45); ABG PH Result 7.39 (7.35-7.45); Arterial Blood Gas Hematocrit 29.2 % (37-47); Base Excess ABG 10.7 mmol/L (-2.0-2.0); Blood Gas Sample Site Brachial, right; Blood Gas Sample Type Arterial; HCO3 ABG 37.3 mmol/L (22-26); Oxygen Device BIPAP; PO2 FiO2 Ratio Arterial Blood 256
[2024-07-17 05:56] LABS: Basophils % 0.3 %; Eosinophils # 0.3 10^3/uL (0.0-0.8); Lymphocytes % 22.6 %; Mean Corpuscular Hemoglobin 30.3 pg (27-33); Mean Corpuscular Volume 97.7 fl (85-98); Mean Platelet Volume 10.6 fL (7.4-10.4); Monocytes # 0.9 10^3/uL (0.2-0.9); Monocytes % 9.7 %; Neutrophils # 5.73 10^3/uL (1.8-7.7); Neutrophils % 64.1 %; Nucleated Red Blood Cells % 0 %; Platelet Count 189 10^3/cmm (157-399); Red Blood Count 3.07 10^6/uL (3.85-5.65); Red Cell Distribution Width 13.7 % (12.1-15.1); White Blood Count 8.95 10^3/uL (3.29-11.43)
[2024-07-17 06:03] LABS: INR 0.95 (0.8-1.2)
[2024-07-17 06:04] LABS: Partial Thromboplastin Time 30.1 SECONDS (23.9-36.7)
[2024-07-17 06:07] LABS: Estmated Average Glucose 226; Hemoglobin A1C 9.5 % (4.0-6.0)
[2024-07-17] MEDS: FUROsemide 10 mg/mL SDV 4mL 40 MG IVP ×2 (06:13→17:34)
[2024-07-17 06:15] LABS: Chol HDL Ratio 2.47 mg/dL (0.0-4.40); Cholesterol 94 mg/dL (0-200); HDL Cholesterol 38 mg/dL (60-100); Iron 35 ug/dL (37-145); LDL Cholesterol Calculated 39 mg/dL (50-129); LDL HDL Ratio 1.03 RATIO (0.00-3.22); Percent Saturation 15.5 % (20-50); Total Iron Binding Capacity 225 mcg/dl; Triglycerides 83 mg/dL (0-150); Unsaturated Iron Binding 190 ug/dL (112-347)
[2024-07-17 06:17] LABS: Anion Gap 12.7 (5-19); Blood Urea Nitrogen 44 mg/dL (8-23); Calcium 8.9 mg/dL (8.5-10.5); Carbon Dioxide 34 mmol/L (22-29); Chloride 101 mmol/L (98-107); Creatinine Clr Calc Pharmacy 51.2362; Glomerular Filtration Rate 37.3 mL/min (90-130); Glucose 128 mg/dL (65-115); Magnesium 2.1 mg/dL (1.7-2.3); Osmolality Calculated 309 mOsm/kg (285-295); Phosphorus 3.5 mg/dL (2.5-4.5); Potassium 4.7 mmol/L (3.5-5.1); Sodium 143 mmol/L (136-145)
[2024-07-17] MEDS: potassium chloride ER 20 mEq Tablet PO (06:21)
[2024-07-17 06:30] LABS: Thyroid Stimulating Hormone 3.87 uIU/mL (0.27-4.20)
[2024-07-17 06:36] LABS: Glucose Point of Care 137 mg/dL (70-110)
[2024-07-17] MEDS: budesonide 0.5 mg/2 mL Neb INHALATION ×2 (08:01→20:53)
[2024-07-17] MEDS: ipratropium-albuterol 3 mL Neb INHALATION (08:01)
[2024-07-17] MEDS: gabapentin 100 mg Capsule PO (09:03)
[2024-07-17] MEDS: iron polysaccharide complex 150 mg Capsule PO ×2 (09:03→17:34)
[2024-07-17] MEDS: losartan 50 mg Tablet 25 MG PO (09:04)
[2024-07-17] MEDS: docusate sodium 100 mg Capsule PO ×2 (09:04→17:34)
[2024-07-17] MEDS: aspirin 81 mg EC Tablet PO (09:04)
[2024-07-17] MEDS: carvedilol 3.125 mg Tablet PO ×2 (09:04→20:46)
[2024-07-17] MEDS: isosorbide dinitrate 20 mg Tablet PO (09:04)
[2024-07-17] MEDS: insulin glargine 100 units/1 mL 50 UNIT SUBCUT ×2 (09:12→20:47)
--- NOTE | 2024-07-17 09:57 | PC.CHAP ---
Pastoral Care Encounter/Spiritual Assessment Type of Contact [] Declined nutrition services associate visit [] Patient/Family/Request visit [] Outpatient visit [] Follow-up visit [] Physician referral [] Code/Alert [x] Routine visit [] Staff referral [] Actively dying [] Patient sleeping [] Family support [] [] Out of room [] Palliative care [] [] Receiving care in room [] Pre-surgical visit [] Trauma [] Long length of stay [] ICU visit [] Other: Relational/Emotional Strength [x] Patient feels connected with others/family/visitors/staff [] Distress [] Loneliness/isolation [] Abandonment Spirituality of Patient [x] Person of Michaela [] Attends Amish of their Michaela [x] Believes in Prayer [] Reads Bible or Worship materials [] There are Spiritual issues to be addressed Real Estate Attorney Interventions [x] Prayer [x] Active listening [] Non-anxious presence [x] Spiritual/emotional support [] Crisis/trauma care [] Spiritual counseling [] Bereavement support [] Provided bereavement packet [] Provided Bible/devotional materials [] Provided toy/stuffed animal, coloring book to patient or family member [] Provided Communion [] Anointing/[place] [] Salvation [x] Completed spiritual assessment [] Other: Impact on Illness or Injury [] Angry [] Fearful [] Anxious [] Often cries [] Exhaustion [] Unable to work [] Unable to attend confucianist [] Unable to walk/stand [] Unable to read [] Unable to drive [] Unable to eat/drink [] Unable to sleep [] Unable to be with family [] Patient intubated [] Other: Summary Time spent with patient5 min
[2024-07-17] MEDS: phenazopyridine 100 mg Tablet 200 MG PO (11:50)
[2024-07-17 12:23] LABS: Glucose Point of Care 165 mg/dL (70-110)
[2024-07-17] MEDS: insulin lispro 100 unit/1 mL SUBCUT ×3 (12:45→20:46)
--- NOTE | 2024-07-17 14:58 | PM.PN ---
Subjective Subjective: Seen this morning. No acute events overnight. Subjectively patient reports feeling slightly better compared to yesterday Vitals/I&O/Wt Last Vital Signs Temp 98.8 F 07/17/24 11:40 Pulse 56 L 07/17/24 11:40 Resp 20 H 07/17/24 11:40 BP 110/60 07/17/24 11:40 Pulse Ox 93 07/17/24 11:40 O2 Del Method Nasal Cannula 07/17/24 11:40 O2 Flow Rate 2 07/17/24 11:40 FiO2 35 07/17/24 08:00 07/16/24 07/17/24 07/17/24 22:59 06:59 14:59 Intake Total 520 / 520 0 / 520 420 / 420 Output Total 1700 / 1700 600 / 2300 850 / 850 Balance -1180 / -1180 -600 / -1780 -430 / -430 Weight last 48 hrs Weight 145.694 kg Weight 140.614 kg Weight 140.614 kg Physical Exam Narrative: General: Alert oriented x3, patient seen sitting up in bed appearing comfortable at this time HEENT: Normocephalic, atraumatic, EOMI, on nasal cannula, large neck Cardio: Regular rate rhythm, distant heart sounds secondary to large body habitus Respiratory: Mainly clear to auscultation bilaterally with decreased breath sounds at bases. GI: Abdomen soft, nontender, nondistended, bowel sounds + Extremities: 4+ edema bilateral lower extremities up to thighs. Urinary Catheter Management: Rivers Latex: Cath Placed During This Visit: yes Reason for Continuing Indwelling Catheter: Other Urinary Catheter Date of Insertion: 07/16/24 Urinary Catheter Time of Insertion: 12:27 Data 07/17/24 05:27 07/17/24 05:27 A&P Assessment and plan (1) Acute respiratory failure with hypoxia and hypercapnia: Does not carry a diagnosis of chronic respiratory failure but strongly suspect that she has a degree of chronic respiratory failure related to untreated sleep apnea, obesity hypoventilation plus or minus obstructive disease from remote tobacco use. Has prescription for inhaler. No current tobacco use. Has chronic oxygen for nocturnal use but has been using during waking hours recently. Has been unable to tolerate home bipap in past. Presently with respiratory acidosis, chronic and acute, possibly due to increased oxygen use, with metabolic acidosis and alkalosis. Clinically does not appear to have acute COPD process contributing but is a consideration given history. - Continue bipap as tolerates - Oxygen therapy for a goal saturation of 90-92% currently - Diuresis - Monitor ABGs until improves or stabilizes - Breathing treatments as needed (2) Congestive heart failure: Acute on chronic diastolic CHF. Currently significantly total body volume overloaded. Presumptively assume this is due to lack of diuresis with travel back to [place] from [place] and since discharge from the hospital there. Does have a history of coronary artery disease with prior stents but does not describe unstable angina. Has limited activity however. - Diuresis - Strict I's and O's and daily weights - Continue ARB if blood pressure and renal function allow Qualifiers: Heart failure chronicity: acute on chronic Heart failure type: diastolic Qualified Code(s): I50.33 - Acute on chronic diastolic (congestive) heart failure (3) Chronic kidney disease, stage 3b: Baseline creatinine around 1.4 per available records. Review of records from [place] showed a range of creatinine 1.15-1.8 that seem to vary with initiation of diuresis. Highest recorded values were after discharge from [facility]. She had been prescribed torsemide at discharge to skilled facility but I am not able to discern if she was taking this medication or had stopped it prior to the most recent labs being drawn. - Monitor renal function and urine output with diuretic therapy - Rivers initially given comorbidities; reviewed increased risk of UTI and need to remove as soon as feasible - Monitor potassium levels closely for need for oral replacement (4) Class 3 severe obesity with body mass index (BMI) of 60.0 to 69.9 in adult: Is not chronically on oxygen and review of records from [place] showed saturations 92% on room air in the one time I was able to find values. She does typically use oxygen at night in place of bipap for JODI managment. I strongly suspect that there is a component of obesity hypoventilation and likely has chronic hypoxemia when awake or with exerion that has not been recognized due to limited medical care from available history. Currently exacerbated by above. - Dietitian consultation to assist with optimizing nutritional intake in light of comorbidities and current BMI levels - Will need to be careful normalizing oxygen values, current goal oxygen saturation around 92% Qualifiers: Obesity type: with alveolar hypoventilation Serious obesity comorbidity presence: with serious comorbidity Qualified Code(s): E66.813 - Obesity, class 3; E66.2 - Morbid (severe) obesity with alveolar hypoventilation; Z68.44 - Body mass index [BMI] 60.0-69.9, adult (5) CAD (coronary artery disease): Has to coronary stents from 2017. Recent echocardiogram as already noted with no wall motion abnormalities. Cardiac enzymes when in [facility] were normal though I only saw 1 value. Current EKG with nonspecific ST changes. Has bradycardia noted but has been taking two beta blockers for a while. - Check serial cardiac enzymes and EKGs - Currently not repeating echocardiogram as was just done at the end of June though if does not improve with diuresis or clinically worsens otherwise may consider - Continue home aspirin, statin, beta-sigrid in the form of carvedilol and ARB plus isosorbide as blood pressure and kidney function allows - Holding home amlodipine, propranolol currently, sounds like double beta blockade may have a mis-understanding of reasons for medication based on available information Qualifiers: Coronary Disease-Associated Artery/Lesion type: [place] artery [place] vs. transplanted heart: [place] heart Associated angina: with stable angina Qualified Code(s): I25.118 - Atherosclerotic heart disease of [place] coronary artery with other forms of angina pectoris (6) Anemia: Anemia of chronic kidney disease related to poorly controlled diabetes mellitus. No reported bleeding. There may be a delusional component from volume overload currently though values are consistent with what was identified in [place] recently. - Recheck hemoglobin in the morning, monitor for gross bleeding - Check TIBC - Anticipate need for iron replacement so will start on oral iron Qualifiers: Anemia type: due to chronic kidney disease Chronic kidney disease stage: stage 3 (moderate) Chronic kidney disease stage 3 subtype: stage 3b (GFR 30-44) Qualified Code(s): N18.32 - Chronic kidney disease, stage 3b; D63.1 - Anemia in chronic kidney disease (7) Diabetes mellitus type 2, insulin dependent: Has associated chronic comorbidities of chronic kidney disease stage IIIb, hyperglycemia with poor control, peripheral neuropathy on chronic gabapentin. Is prescribed twice daily Lantus and sliding scale insulin aspartate. - Will start off with Lantus at 50 units twice a day and moderate dose sliding scale insulin, adjusting based on blood sugar values - Check hemoglobin A1c as will give a better idea of sugars on an ongoing basis and outpatient management needs - Continue home gabapentin for neuropathy (8) HTN (hypertension): Chronically prescribed different medications though compliance is unclear at this time. Has amlodipine, carvedilol, isosorbide dinitrate, losartan, propranolol and has recently also been prescribed torsemide. 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: Not clinically acute based on available information - Breathing treatments as needed (11) JODI (obstructive sleep apnea): Intolerant of home bipap, uses nocturnal oxygen - Discussed with patient importance of treating sleep apnea for overall cardiopulmonary health - She is willing to consider trying bipap at home; have ordered bipap based on prior sleep study and ABG today Plan Inpatient admission Plan of care as noted above VTE prophylaxis: Lovenox at 30mg daily due to renal function Antibiotics: none currently Pending studies: am A1c, Lipid, Tsh; serial cardiac enzumes, am BMP, CBC Telemetry: ordered due to CHF Rivers: ordered pastor to diuresis and CKD, respiratory status Line(s): peripheral IVs Disposition plan: Home with outpatient follow up anticipated, would benefit from home Bipap if would use, has sleep study from 2017 showing need and hypoxemia here here with PO2 61, needs continuous oxygen for home use as well. Additionally will need clarification of medications for Mrs Whitmore to take given variances between lists at [facility] and what patient reports taking. Code Status: Full Code Supportive care otherwise Findings, concerns and plans were discussed with patient as well as her daughter Nasreen by phone and they were given an opportunity to ask questions 07/17/2024 She uses oxygen at nighttime. Apparently patient has had a previous sleep study. We discussed with case management if can be set up for patient. Will check overnight pulse ox. Continue DuoNeb every 4 hours as needed. Patient will require IV diuresis at this time. She does have acute on chronic diastolic CHF. Patient is quite fluid overloaded at this time. Creatinine is at baseline 1.4 as per available records. Continue sliding scale insulin and Lantus 50 units twice daily. Patient requires continued hospitalization for IV diuresis. Will need strict input output. So far she is 2 L net negative. Continue Lasix 40 IV twice daily Echo pending at this time. PDMP PDMP Reviewed: Not Reviewed Attestations Medical Necessity Statement*: Requires continued IV diuresis. Diagnoses Acute respiratory failure with hypoxia and hypercapnia J96.01; J96.02 Acute on chronic diastolic congestive heart failure I50.33 Heart failure chronicity: acute on chronic Heart failure type: diastolic Chronic kidney disease, stage 3b N18.32 Class 3 obesity with alveolar hypoventilation, serious comorbidity, and body mass index (BMI) of 60.0 to 69.9 in adult E66.813; E66.2; Z68.44 Obesity type: with alveolar hypoventilation Serious obesity comorbidity presence: with serious comorbidity Coronary artery disease of [place] artery of [place] heart with stable angina pectoris I25.118 Coronary Disease-Associated Artery/Lesion type: [place] artery [place] vs. transplanted heart: c[place] heart Associated angina: with stable angina Anemia due to stage 3b chronic kidney disease N18.32; D63.1 Anemia type: due to chronic kidney disease Chronic kidney disease stage: stage 3 (moderate) Chronic kidney disease stage 3 subtype: stage 3b (GFR 30-44) Diabetes mellitus type 2, insulin dependent E11.9; Z79.4 Primary hypertension I10 Hypertension type: primary hypertension Mixed hyperlipidemia E78.2 Hyperlipidemia type: mixed hyperlipidemia COPD with asthma J44.89 JODI (obstructive sleep apnea) G47.33
--- NOTE | 2024-07-17 15:04 | USCV_ITS ---
Yuridia Whitmore Age: 69 Gender: F : 1955 Exam Date: 07/17/2024 19:07 Ordering Phys: Yolanda Downey MD Technologist: KAREEM Exam Location: [facility] [place] Indication: CHF History of DM, HTN, HL, morbid obesity, JODI, CAD, SOB BP: 110 / 60 HR: 59 Rhythm: Sinus Technical Quality: Adequate MEASUREMENTS (Male / Female) Normal Values 2D ECHO LV Diastolic Diameter PLAX 4.2 cm 4.2 - 5.9 / 3.9 - 5.3 cm IVS Diastolic Thickness 1.8 cm 0.6 - 1.0 / 0.6 - 0.9 cm IVS Systolic Thickness 2.3 cm LVPW Diastolic Thickness 1.7 cm 0.6 - 1.0 / 0.6 - 0.9 cm LVPW Systolic Thickness 2.6 cm LVOT Diameter 2.0 cm LV Ejection Fraction 2D Teich 60.1 % LV Ejection Fraction MOD 4C 50.2 % LV Ejection Fraction MOD 2C 65.8 % LV Ejection Fraction 2C AL 63.9 % LA Diameter 4.2 cm Aorta at Sinotubular Diameter 2.9 cm IVC Diameter 2.0 cm M-MODE LA Ao Ratio MM 1.8 AV Cusp Separation MM 2.0 cm DOPPLER AV Peak Velocity 175.0 cm/s LVOT Peak Velocity 113.0 cm/s AV Area Cont Eq vti 2.0 cm squared AV Area Cont Eq pk 2.0 cm squared MV Peak Velocity 154.0 cm/s MV Area PHT 2.4 cm squared Mitral E to A Ratio 0.9 TV Peak Velocity 299.0 cm/s TR Peak Velocity 312.0 cm/s TR Peak Gradient 38.9 mmHg TV Peak E Velocity 62.0 cm/s PV Peak Velocity 165.0 cm/s FINDINGS Left Ventricle Normal left ventricular size and systolic function, EF 60%.moderate left ventricular hypertrophy. Grade I/IV diastolic dysfunction (abnormal relaxation filling pattern), normal to mildly elevated filling pressures. Right Ventricle The right ventricle is normal in size and function. Right Atrium The right atrium is normal in size. Left Atrium Mildly increased left atrial size. Mitral Valve Mild mitral annular calcification. Mild mitral valve regurgitation. Thickened mitral valve. Aortic Valve No gross abnormalities Tricuspid Valve No gross abnormalities noted Pulmonic Valve Trace pulmonary valve regurgitation. Pericardium No pericardial effusion. Aorta Normal aortic annulus size. IVC Inferior vena cava not visualized. CONCLUSIONS Normal left ventricular size and systolic function, EF 60%.moderate left ventricular hypertrophy. Grade I/IV diastolic dysfunction (abnormal relaxation filling pattern), normal to mildly elevated filling pressures. Mildly increased left atrial size. Mild mitral annular calcification. Mild mitral valve regurgitation. Thickened mitral valve. Trace pulmonary valve regurgitation. There is no pericardial effusion. There are no intracardiac masses. Compared to the study from 08/07/2016, there may not be a significant change Dr Ruben Coyle MD [facility] (Electronically Signed) Final Date: 18 July 2024 01:28 S
[2024-07-17] MEDS: enoxaparin 30 mg/0.3 mL Syringe SUBCUT (16:08)
[2024-07-17 17:26] LABS: Glucose Point of Care 197 mg/dL (70-110)
[2024-07-17] MEDS: atorvastatin 40 mg Tablet PO (20:46)
[2024-07-17 20:53] LABS: Glucose Point of Care 156 mg/dL (70-110)
[2024-07-18] VITALS (15 sets, daily range): BP systolic 124–139; BP diastolic 42–67; PULSE 57–83; RESP 14–24; TEMP 36.6–36.9; O2SAT 90–96
[2024-07-18] MEDS: acetaminophen 325 mg Tablet 650 MG PO (01:17)
[2024-07-18 03:48] LABS: Basophils % 0.2 %; Eosinophils # 0.3 10^3/uL (0.0-0.8); Hematocrit 30.3 % (36-47); Lymphocytes # 2.7 10^3/uL (0.8-4.8); Lymphocytes % 27.9 %; Mean Corpuscular Hemoglobin 29.8 pg (27-33); Mean Corpuscular Volume 96.2 fl (85-98); Mean Platelet Volume 10.3 fL (7.4-10.4); Monocytes # 1.2 10^3/uL (0.2-0.9); Monocytes % 12.1 %; Neutrophils % 56.6 %; Nucleated Red Blood Cells % 0 %; Platelet Count 172 10^3/cmm (157-399); Red Blood Count 3.15 10^6/uL (3.85-5.65); Red Cell Distribution Width 13.3 % (12.1-15.1); White Blood Count 9.55 10^3/uL (3.29-11.43)
[2024-07-18 04:09] LABS: Blood Urea Nitrogen 40 mg/dL (8-23); Calcium 8.8 mg/dL (8.5-10.5); Carbon Dioxide 38 mmol/L (22-29); Chloride 98 mmol/L (98-107); Creatinine Clr Calc Pharmacy 55.1774; Glomerular Filtration Rate 40.6 mL/min (90-130); Glucose 61 mg/dL (65-115); Osmolality Calculated 304 mOsm/kg (285-295); Phosphorus 4.4 mg/dL (2.5-4.5); Sodium 143 mmol/L (136-145)
[2024-07-18 05:12] LABS: Glucose Point of Care 68 mg/dL (70-110)
[2024-07-18] MEDS: FUROsemide 10 mg/mL SDV 4mL 40 MG IVP ×2 (06:15→17:07)
[2024-07-18] MEDS: potassium chloride ER 20 mEq Tablet PO (06:16)
[2024-07-18 06:19] LABS: Glucose Point of Care 150 mg/dL (70-110)
[2024-07-18] MEDS: insulin glargine 100 units/1 mL 50 UNIT SUBCUT ×2 (08:51→21:13)
[2024-07-18] MEDS: losartan 50 mg Tablet 25 MG PO (08:52)
[2024-07-18] MEDS: gabapentin 100 mg Capsule PO (08:52)
[2024-07-18] MEDS: iron polysaccharide complex 150 mg Capsule PO ×2 (08:52→17:07)
[2024-07-18] MEDS: aspirin 81 mg EC Tablet PO (08:52)
[2024-07-18] MEDS: carvedilol 3.125 mg Tablet PO ×2 (08:52→21:13)
[2024-07-18] MEDS: isosorbide dinitrate 20 mg Tablet PO (08:52)
[2024-07-18] MEDS: docusate sodium 100 mg Capsule PO ×2 (08:53→17:07)
[2024-07-18] MEDS: ipratropium-albuterol 3 mL Neb INHALATION ×2 (09:04→20:36)
[2024-07-18] MEDS: budesonide 0.5 mg/2 mL Neb INHALATION ×2 (09:04→20:36)
[2024-07-18 11:59] LABS: Glucose Point of Care 177 mg/dL (70-110)
--- NOTE | 2024-07-18 12:39 | PC.SOCIAL ---
IMM Updated Updated pt on IMM. No questions voiced. Provided pt a copy. Initialed, dated, & timed a copy & placed in chart.
[2024-07-18] MEDS: insulin lispro 100 unit/1 mL SUBCUT ×2 (13:06→21:13)
--- NOTE | 2024-07-18 15:25 | PM.PN ---
Subjective Subjective: Patient is 6.8 L negative since admission. He is sitting up in bed states she is starting to feel better. She is requesting for oxygen at discharge. I explained to her regarding home oxygen evaluation. She states she used to have a BiPAP few years ago after she had a sleep study done however she could not tolerate BiPAP therefore returned it. She would like to retry at this time. Patient willing to have a sleep study done as an outpatient. Vitals/I&O/Wt Last Vital Signs Temp 98.2 F 07/18/24 11:48 Pulse 69 07/18/24 11:48 Resp 18 07/18/24 11:48 BP 139/67 07/18/24 11:48 Pulse Ox 94 07/18/24 11:48 O2 Del Method Nasal Cannula 07/18/24 11:48 O2 Flow Rate 2 07/18/24 09:07 FiO2 35 07/17/24 08:00 07/18/24 07/18/24 07/18/24 06:59 14:59 22:59 Intake Total 480 / 480 Output Total 1200 / 4950 1800 / 1800 Balance -1200 / -3790 -1320 / -1320 Weight last 48 hrs Weight 140.886 kg Weight 145.694 kg Weight 140.614 kg Physical Exam Narrative: General: Alert oriented x3, patient seen sitting up in bed appearing comfortable at this time HEENT: Normocephalic, atraumatic, EOMI, on nasal cannula, large neck Cardio: Regular rate rhythm, distant heart sounds secondary to large body habitus Respiratory: Mainly clear to auscultation bilaterally with decreased breath sounds at bases. GI: Abdomen soft, nontender, nondistended, bowel sounds + Extremities: 2+ edema bilateral lower extremities up to thighs. Starting sitting peeling on feet. Urinary Catheter Management: Rivers Latex: Cath Placed During This Visit: yes Reason for Continuing Indwelling Catheter: Accurate Measurement of Urinary Output in Critically Ill Patients Urinary Catheter Date of Insertion: 07/16/24 Urinary Catheter Time of Insertion: 12:27 Data 07/18/24 03:36 07/18/24 03:36 A&P Assessment and plan (1) Acute respiratory failure with hypoxia and hypercapnia: Does not carry a diagnosis of chronic respiratory failure but strongly suspect that she has a degree of chronic respiratory failure related to untreated sleep apnea, obesity hypoventilation plus or minus obstructive disease from remote tobacco use. Has prescription for inhaler. No current tobacco use. Has chronic oxygen for nocturnal use but has been using during waking hours recently. Has been unable to tolerate home bipap in past. Presently with respiratory acidosis, chronic and acute, possibly due to increased oxygen use, with metabolic acidosis and alkalosis. Clinically does not appear to have acute COPD process contributing but is a consideration given history. - Continue bipap as tolerates - Oxygen therapy for a goal saturation of 90-92% currently - Diuresis - Monitor ABGs until improves or stabilizes - Breathing treatments as needed (2) Congestive heart failure: Acute on chronic diastolic CHF. Currently significantly total body volume overloaded. Presumptively assume this is due to lack of diuresis with travel back to [place] from [place] and since discharge from the hospital there. Does have a history of coronary artery disease with prior stents but does not describe unstable angina. Has limited activity however. - Diuresis - Strict I's and O's and daily weights - Continue ARB if blood pressure and renal function allow Qualifiers: Heart failure chronicity: acute on chronic Heart failure type: diastolic Qualified Code(s): I50.33 - Acute on chronic diastolic (congestive) heart failure (3) Chronic kidney disease, stage 3b: Baseline creatinine around 1.4 per available records. Review of records from [place] showed a range of creatinine 1.15-1.8 that seem to vary with initiation of diuresis. Highest recorded values were after discharge from [facility]. She had been prescribed torsemide at discharge to skilled facility but I am not able to discern if she was taking this medication or had stopped it prior to the most recent labs being drawn. - Monitor renal function and urine output with diuretic therapy - Rivers initially given comorbidities; reviewed increased risk of UTI and need to remove as soon as feasible - Monitor potassium levels closely for need for oral replacement (4) Class 3 severe obesity with body mass index (BMI) of 60.0 to 69.9 in adult: Is not chronically on oxygen and review of records from [place] showed saturations 92% on room air in the one time I was able to find values. She does typically use oxygen at night in place of bipap for JODI managment. I strongly suspect that there is a component of obesity hypoventilation and likely has chronic hypoxemia when awake or with exerion that has not been recognized due to limited medical care from available history. Currently exacerbated by above. - Dietitian consultation to assist with optimizing nutritional intake in light of comorbidities and current BMI levels - Will need to be careful normalizing oxygen values, current goal oxygen saturation around 92% Qualifiers: Obesity type: with alveolar hypoventilation Serious obesity comorbidity presence: with serious comorbidity Qualified Code(s): E66.813 - Obesity, class 3; E66.2 - Morbid (severe) obesity with alveolar hypoventilation; Z68.44 - Body mass index [BMI] 60.0-69.9, adult (5) CAD (coronary artery disease): Has to coronary stents from 2017. Recent echocardiogram as already noted with no wall motion abnormalities. Cardiac enzymes when in [facility] were normal though I only saw 1 value. Current EKG with nonspecific ST changes. Has bradycardia noted but has been taking two beta blockers for a while. - Check serial cardiac enzymes and EKGs - Currently not repeating echocardiogram as was just done at the end of June though if does not improve with diuresis or clinically worsens otherwise may consider - Continue home aspirin, statin, beta-sigrid in the form of carvedilol and ARB plus isosorbide as blood pressure and kidney function allows - Holding home amlodipine, propranolol currently, sounds like double beta blockade may have a mis-understanding of reasons for medication based on available information Qualifiers: Coronary Disease-Associated Artery/Lesion type: [place] artery [place] vs. transplanted heart: [place] heart Associated angina: with stable angina Qualified Code(s): I25.118 - Atherosclerotic heart disease of [place] coronary artery with other forms of angina pectoris (6) Anemia: Anemia of chronic kidney disease related to poorly controlled diabetes mellitus. No reported bleeding. There may be a delusional component from volume overload currently though values are consistent with what was identified in [place] recently. - Recheck hemoglobin in the morning, monitor for gross bleeding - Check TIBC - Anticipate need for iron replacement so will start on oral iron Qualifiers: Anemia type: due to chronic kidney disease Chronic kidney disease stage: stage 3 (moderate) Chronic kidney disease stage 3 subtype: stage 3b (GFR 30-44) Qualified Code(s): N18.32 - Chronic kidney disease, stage 3b; D63.1 - Anemia in chronic kidney disease (7) Diabetes mellitus type 2, insulin dependent: Has associated chronic comorbidities of chronic kidney disease stage IIIb, hyperglycemia with poor control, peripheral neuropathy on chronic gabapentin. Is prescribed twice daily Lantus and sliding scale insulin aspartate. - Will start off with Lantus at 50 units twice a day and moderate dose sliding scale insulin, adjusting based on blood sugar values - Check hemoglobin A1c as will give a better idea of sugars on an ongoing basis and outpatient management needs - Continue home gabapentin for neuropathy (8) HTN (hypertension): Chronically prescribed different medications though compliance is unclear at this time. Has amlodipine, carvedilol, isosorbide dinitrate, losartan, propranolol and has recently also been prescribed torsemide. 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: Not clinically acute based on available information - Breathing treatments as needed (11) JODI (obstructive sleep apnea): Intolerant of home bipap, uses nocturnal oxygen - Discussed with patient importance of treating sleep apnea for overall cardiopulmonary health - She is willing to consider trying bipap at home; have ordered bipap based on prior sleep study and ABG today Plan Inpatient admission Plan of care as noted above VTE prophylaxis: Lovenox at 30mg daily due to renal function Antibiotics: none currently Pending studies: am A1c, Lipid, Tsh; serial cardiac enzumes, am BMP, CBC Telemetry: ordered due to CHF Rivers: ordered pastor to diuresis and CKD, respiratory status Line(s): peripheral IVs Disposition plan: Home with outpatient follow up anticipated, would benefit from home Bipap if would use, has sleep study from 2017 showing need and hypoxemia here here with PO2 61, needs continuous oxygen for home use as well. Additionally will need clarification of medications for Mrs Whitmore to take given variances between lists at [facility] and what patient reports taking. Code Status: Full Code Supportive care otherwise Findings, concerns and plans were discussed with patient as well as her daughter Nasreen by phone and they were given an opportunity to ask questions 07/17/2024 She uses oxygen at nighttime. Apparently patient has had a previous sleep study. We discussed with case management if can be set up for patient. Will check overnight pulse ox. Continue DuoNeb every 4 hours as needed. Patient will require IV diuresis at this time. She does have acute on chronic diastolic CHF. Patient is quite fluid overloaded at this time. Creatinine is at baseline 1.4 as per available records. Continue sliding scale insulin and Lantus 50 units twice daily. Patient requires continued hospitalization for IV diuresis. Will need strict input output. So far she is 2 L net negative. Continue Lasix 40 IV twice daily Echo pending at this time. 07/18/2024 seen today continue IV diuresis plan for DC in am pt is 6.8L neg will need home o2 eval at dc PDMP PDMP Reviewed: Not Reviewed Attestations Medical Necessity Statement*: continue iv diuresis Diagnoses Acute respiratory failure with hypoxia and hypercapnia J96.01; J96.02 Acute on chronic diastolic congestive heart failure I50.33 Heart failure chronicity: acute on chronic Heart failure type: diastolic Chronic kidney disease, stage 3b N18.32 Class 3 obesity with alveolar hypoventilation, serious comorbidity, and body mass index (BMI) of 60.0 to 69.9 in adult E66.813; E66.2; Z68.44 Obesity type: with alveolar hypoventilation Serious obesity comorbidity presence: with serious comorbidity Coronary artery disease of [place] artery of [place] heart with stable angina pectoris I25.118 Coronary Disease-Associated Artery/Lesion type: [place] artery [place] vs. transplanted heart: [place] heart Associated angina: with stable angina Anemia due to stage 3b chronic kidney disease N18.32; D63.1 Anemia type: due to chronic kidney disease Chronic kidney disease stage: stage 3 (moderate) Chronic kidney disease stage 3 subtype: stage 3b (GFR 30-44) Diabetes mellitus type 2, insulin dependent E11.9; Z79.4 Primary hypertension I10 Hypertension type: primary hypertension Mixed hyperlipidemia E78.2 Hyperlipidemia type: mixed hyperlipidemia COPD with asthma J44.89 JODI (obstructive sleep apnea) G47.33
[2024-07-18 16:49] LABS: Glucose Point of Care 133 mg/dL (70-110)
[2024-07-18 20:52] LABS: Glucose Point of Care 245 mg/dL (70-110)
[2024-07-18] MEDS: atorvastatin 40 mg Tablet PO (21:13)
[2024-07-19] VITALS (10 sets, daily range): BP systolic 120–140; BP diastolic 45–53; PULSE 55–81; RESP 14–20; TEMP 36.6–36.9; O2SAT 85–98
[2024-07-19 04:07] LABS: Anion Gap 11.5 (5-19); Blood Urea Nitrogen 40 mg/dL (8-23); Calcium 8.7 mg/dL (8.5-10.5); Carbon Dioxide 40 mmol/L (22-29); Chloride 95 mmol/L (98-107); Creatinine Clr Calc Pharmacy 53.9374; Glomerular Filtration Rate 40.6 mL/min (90-130); Glucose 178 mg/dL (65-115); Magnesium 2.3 mg/dL (1.7-2.3); Osmolality Calculated 308 mOsm/kg (285-295); Phosphorus 4.7 mg/dL (2.5-4.5); Potassium 4.5 mmol/L (3.5-5.1); Sodium 142 mmol/L (136-145)
[2024-07-19] MEDS: FUROsemide 10 mg/mL SDV 4mL 40 MG IVP (06:01)
[2024-07-19] MEDS: potassium chloride ER 20 mEq Tablet PO (06:01)
[2024-07-19 06:22] LABS: Glucose Point of Care 134 mg/dL (70-110)
[2024-07-19] MEDS: budesonide 0.5 mg/2 mL Neb INHALATION (07:29)
[2024-07-19] MEDS: ipratropium-albuterol 3 mL Neb INHALATION (07:29)
--- NOTE | 2024-07-19 07:48 | PC.NURSE ---
Patient wants to get up and walk with PT today and would like something for the bladder spasms. Informed Dr Downey and received order for PT and a one time dose of pyridium as ordered.
[2024-07-19] MEDS: docusate sodium 100 mg Capsule PO (07:53)
[2024-07-19] MEDS: gabapentin 100 mg Capsule PO (07:53)
[2024-07-19] MEDS: isosorbide dinitrate 20 mg Tablet PO (07:54)
[2024-07-19] MEDS: phenazopyridine 100 mg Tablet PO (07:54)
[2024-07-19] MEDS: aspirin 81 mg EC Tablet PO (07:54)
[2024-07-19] MEDS: losartan 50 mg Tablet 25 MG PO (07:54)
[2024-07-19] MEDS: insulin glargine 100 units/1 mL 50 UNIT SUBCUT (07:54)
[2024-07-19] MEDS: iron polysaccharide complex 150 mg Capsule PO (07:54)
[2024-07-19] MEDS: carvedilol 3.125 mg Tablet PO (07:56)
--- NOTE | 2024-07-19 08:50 | P.DS_ITS ---
Discharge Providers Date of Admission: 07/16/24 13:01 Date of Discharge: July 19, 2024 Attending Provider at Admission: Cristy Perez MD Attending Provider at Discharge: Yolanda Downey MD Primary Care Provider: Génesis Junior APN Diagnoses at Discharge Discharge Diagnosis (1) Acute respiratory failure with hypoxia and hypercapnia: Status: Resolved (2) Congestive heart failure: Status: Acute Qualifiers: Heart failure chronicity: acute on chronic Heart failure type: diastolic Qualified Code(s): I50.33 - Acute on chronic diastolic (congestive) heart failure (3) Chronic kidney disease, stage 3b: Status: Acute (4) Class 3 severe obesity with body mass index (BMI) of 60.0 to 69.9 in adult: Status: Chronic Qualifiers: Obesity type: with alveolar hypoventilation Serious obesity comorbidity presence: with serious comorbidity Qualified Code(s): E66.813 - Obesity, class 3; E66.2 - Morbid (severe) obesity with alveolar hypoventilation; Z68.44 - Body mass index [BMI] 60.0-69.9, adult (5) CAD (coronary artery disease): Status: Chronic Qualifiers: Associated angina: with stable angina Coronary Disease-Associated Artery/Lesion type: [place] artery [place] vs. transplanted heart: [place] heart Qualified Code(s): I25.118 - Atherosclerotic heart disease of [place] coronary artery with other forms of angina pectoris Permanent problem details: LAD and RCA stents, angioplasty to 1st diagonal [place] [address] Horvath (6) Anemia: Status: Acute Qualifiers: Anemia type: due to chronic kidney disease Chronic kidney disease stage: stage 3 (moderate) Chronic kidney disease stage 3 subtype: stage 3b (GFR 30-44) Qualified Code(s): N18.32 - Chronic kidney disease, stage 3b; D63.1 - Anemia in chronic kidney disease (7) Diabetes mellitus type 2, insulin dependent: Status: Chronic (8) HTN (hypertension): Status: Chronic Qualifiers: Hypertension type: primary hypertension Qualified Code(s): I10 - Essential (primary) hypertension (9) Hyperlipidemia: Status: Chronic Qualifiers: Hyperlipidemia type: mixed hyperlipidemia Qualified Code(s): E78.2 - Mixed hyperlipidemia (10) COPD with asthma: Status: Chronic Permanent problem details: remote tobacco use (11) JODI (obstructive sleep apnea): Status: Chronic Permanent problem details: intolerant of bipap Reason for Visit Reason for Visit: SOB Hospital Course Hospital Course Patient admitted for CHF exacerbation. She was diuresed with IV Lasix. Patient requested to be on Bumex at time of discharge therefore we switched Lasix to Bumex. She will need outpatient sleep study. Please see notes for further details. She was discharged home in stable condition. She qualified for oxygen at discharge. Physical Exam Narrative: General: Alert oriented x3, patient seen sitting up in bed appearing comfortable at this time HEENT: Normocephalic, atraumatic, EOMI, on nasal cannula, large neck Cardio: Regular rate rhythm, distant heart sounds secondary to large body habitus Respiratory: Mainly clear to auscultation bilaterally with decreased breath sounds at bases. GI: Abdomen soft, nontender, nondistended, bowel sounds + Extremities: Trace edema bilateral lower extremities, wrinkling noted by ankles. Urinary Catheter Management: Rivers Latex: Cath Placed During This Visit: yes Reason for Continuing Indwelling Catheter: Accurate Measurement of Urinary Output in Critically Ill Patients Urinary Catheter Date of Insertion: 07/16/24 Urinary Catheter Time of Insertion: 12:27 Discharge Data Studies Completed and Pending Completed Studies During Hospitalization Category Date Time Status XR chest 1V portable [id number] Urgent Exams 07/16/24 10:45 Completed CV. echo complete* [id number] Routine Ultrasound 07/17/24 15:04 Completed Radiology Impressions Chest X-Ray 07/16/24 10:45 IMPRESSION: 1. Mild interstitial pulmonary edema. Possible CHF. 2. [id number] left pleural effusion. Laboratory Results WBC 9.55 10^3/uL (3.29-11.43) 07/18/24 03:36 RBC 3.15 10^6/uL (3.85-5.65) L 07/18/24 03:36 Hgb 9.40 g/dL (11.27-16.99) L 07/18/24 03:36 Hct 30.3 % (36-47) L 07/18/24 03:36 MCV 96.2 fl (85-98) 07/18/24 03:36 MCH 29.8 pg (27-33) 07/18/24 03:36 MCHC 31.0 g/dL (30-55) 07/18/24 03:36 RDW 13.3 % (12.1-15.1) 07/18/24 03:36 Plt Count 172 10^3/cmm (157-399) 07/18/24 03:36 MPV 10.3 fL (7.4-10.4) 07/18/24 03:36 Neut % (Auto) 56.6 % 07/18/24 03:36 Lymph % (Auto) 27.9 % 07/18/24 03:36 [place] % (Auto) 12.1 % 07/18/24 03:36 Eos % (Auto) 3.0 % 07/18/24 03:36 Baso % (Auto) 0.2 % 07/18/24 03:36 Neut # (Auto) 5.40 10^3/uL (1.8-7.7) 07/18/24 03:36 Lymph # (Auto) 2.7 10^3/uL (0.8-4.8) 07/18/24 03:36 [place] # (Auto) 1.2 10^3/uL (0.2-0.9) H 07/18/24 03:36 Eos # (Auto) 0.3 10^3/uL (0.0-0.8) 07/18/24 03:36 Baso # (Auto) 0.0 10^3/uL (0.0-0.1) 07/18/24 03:36 Nucleated RBC % (auto) 0 % 07/18/24 03:36 Nucleated RBCs # 0.0 /100WBC 07/18/24 03:36 PT 13.30 SECONDS (12.1-14.9) 07/17/24 05:27 INR 0.95 (0.8-1.2) 07/17/24 05:27 APTT 30.1 SECONDS (23.9-36.7) 07/17/24 05:27 Specimen Type Arterial 07/17/24 03:26 Sample Site Brachial, right 07/17/24 03:26 ABG pH 7.39 (7.35-7.45) 07/17/24 03:26 ABG pCO2 61.2 mmHg (35-45) H* 07/17/24 03:26 ABG pO2 77.0 mmHg (80.0-100.0) L 07/17/24 03:26 ABG PO2/FiO2 Ratio 256 07/17/24 03:26 ABG HCO3 37.3 mmol/L (22-26) H 07/17/24 03:26 ABG O2 Saturation 96.2 07/16/24 16:55 ABG Base Excess 10.7 mmol/L (-2.0-2.0) H 07/17/24 03:26 Jozef Test N/a 07/17/24 03:26 A-a O2 Gradient 8.3 mmHg (5-10) 07/16/24 16:55 Hematocrit 29.2 % (37-47) L 07/17/24 03:26 Hgb O2 Saturation 94.5 % (95-100) L 07/16/24 16:55 Carboxyhemoglobin 1.3 %THgb (0.4-20.1) 07/16/24 16:55 Methemoglobin 0.4 % (0.4-1.5) 07/16/24 16:55 Total Hemoglobin 10.0 g/dL (12-16) L 07/16/24 16:55 Sodium 142.0 mmol/L (131-143) 07/16/24 16:55 Potassium 4.4 mmol/L (3.5-5.0) 07/16/24 16:55 Glucose 212.0 mg/dL (70-115) H 07/16/24 16:55 Ionized Calcium 1.2 mmol/L (1.1-1.4) 07/16/24 16:55 O2 Delivery Device Bipap 07/17/24 03:26 FiO2 30.0 % 07/17/24 03:26 Hydrogenation Still Operator ID [email or web address] 07/17/24 03:26 Sodium 142 mmol/L (136-145) 07/19/24 03:17 Potassium 4.5 mmol/L (3.5-5.1) 07/19/24 03:17 Chloride 95 mmol/L (98-107) L 07/19/24 03:17 Carbon Dioxide 40 mmol/L (22-29) H 07/19/24 03:17 Anion Gap 11.5 (5-19) 07/19/24 03:17 BUN 40 mg/dL (8-23) H 07/19/24 03:17 Creatinine 1.3 mg/dL (0.5-0.9) H 07/19/24 03:17 GFR Calculation 40.6 mL/min (90-130) L 07/19/24 03:17 Glucose 178 mg/dL (65-115) H 07/19/24 03:17 POC Glucose 134 mg/dL (70-110) H 07/19/24 06:17 Estimat Average Glucose 226 07/17/24 05:27 Hemoglobin A1c 9.5 % (4.0-6.0) H 07/17/24 05:27 Calculated Osmolality 308 mOsm/kg (285-295) H 07/19/24 03:17 Calcium 8.7 mg/dL (8.5-10.5) 07/19/24 03:17 Phosphorus 4.7 mg/dL (2.5-4.5) H 07/19/24 03:17 Magnesium 2.3 mg/dL (1.7-2.3) 07/19/24 03:17 Iron 35 ug/dL (37-145) L 07/17/24 05:27 TIBC 225 mcg/dl 07/17/24 05:27 % Saturation 15.5 % (20-50) L 07/17/24 05:27 Unsat Iron Binding 190 ug/dL (112-347) 07/17/24 05:27 Total Bilirubin 0.5 mg/dL (0.15-1.2) 07/16/24 10:45 AST 18 U/L (0-32) 07/16/24 10:45 ALT 31 U/L (0-33) 07/16/24 10:45 Alkaline Phosphatase 146 U/L (35-105) H 07/16/24 10:45 Troponin T Baseline 30 ng/L (0-10) H 07/16/24 15:56 Troponin T 120 Minute 34.67 ng/L (0-10) H 07/16/24 18:22 Delta Troponin T 4.67 ABS# (0-10) 07/16/24 18:22 Troponin T Hi Sens 6Hr 34.65 ng/L (0-10) H 07/16/24 21:44 Troponin T Hi Sens 6Hr Delta 4.65 ng/L (0-12) 07/16/24 21:44 NT-Pro-B Natriuret Pep 1030 pg/mL (0-125) H 07/16/24 10:45 Total Protein 7.2 g/dL (6.6-8.7) 07/16/24 10:45 Albumin 3.6 g/dL (3.5-5.2) 07/16/24 10:45 Globulin 3.6 g/dL (1.3-4.6) 07/16/24 10:45 Triglycerides 83 mg/dL (0-150) 07/17/24 05:27 Cholesterol 94 mg/dL (0-200) 07/17/24 05: LDL Cholesterol, Calc 39 mg/dL (50-129) L 07/17/24 05: HDL Cholesterol 38 mg/dL (60-100) L 07/17/24 05: LDL/HDL Ratio 1.03 RATIO (0.00-3.22) 07/17/24 05: Cholesterol/HDL Ratio 2.47 mg/dL (0.0-4.40) 07/17/24 05: Procalcitonin 0.04 ng/mL (0-0.5) 07/16/24 10:45 TSH 3.87 uIU/mL (0.27-4.20) 07/17/24 05:27 Urine Color Yellow (Yellow) 07/16/24 10:00 Urine Appearance Clear (CLEAR) 07/16/24 10:00 Urine pH 5.0 (5-7) 07/16/24 10:00 Ur Specific [place] 1.008 (1.005-1.030) 07/16/24 10:00 Urine Protein Negative (Negative) 07/16/24 10:00 Urine Glucose (UA) Negative (Normal) 07/16/24 10:00 Urine Ketones Negative (Negative) 07/16/24 10:00 Urine Blood Negative (Negative) 07/16/24 10:00 Urine Nitrate Negative (Negative) 07/16/24 10:00 Urine Bilirubin Negative (Negative) 07/16/24 10:00 Urine Urobilinogen 0.2 mg/dL (Negative) 07/16/24 10:00 Ur Leukocyte Esterase Negative (Negative) 07/16/24 10:00 Urine RBC 0-2 /hpf (0-2) 07/16/24 10:00 Urine WBC 0-5 /hpf (0-5) 07/16/24 10:00 Ur Squamous Epith Cells 0-5 /hpf (0-5) 07/16/24 10:00 Amorphous Sediment Not Reportable 07/16/24 10:00 Urine Bacteria None seen /hpf (NONE) 07/16/24 10:00 Hyaline Casts 2.46 /lpf 07/16/24 10:00 Serum Ketones Negative (Negative) 07/16/24 10:45 Vitals Last Vital Signs Temp 97.8 F 07/19/24 07:17 Pulse 66 07/19/24 07:42 Resp 18 07/19/24 07:30 BP 120/48 07/19/24 07:54 Pulse Ox 92 07/19/24 07:30 O2 Del Method Nasal Cannula 07/19/24 07:30 O2 Flow Rate 2 07/19/24 07:30 FiO2 40 07/19/24 04:20 Discharge Plan Discharge Patient Disposition: Home Condition: Stable Prescriptions: New potassium chloride [Klor-Con M20] 20 mEq Tablet,Er Particles/Crystals 20 meq PO Q2D Qty: 30 0RF Rx Instructions: take 1 tablet every other day bumetanide 1 mg tablet 1 mg PO DAILY 30 Days Qty: 30 0RF Continued aspirin 81 mg tablet,delayed release (DR/EC) 81 mg PO DAILY atorvastatin 40 mg tablet 1 tab PO DAILY carvedilol 3.125 mg tablet 3.125 mg PO DAILY gabapentin 100 mg capsule 100 mg PO DAILY isosorbide dinitrate 20 mg tablet 20 mg PO DAILY Qty: 30 2RF losartan 25 mg tablet 25 mg PO DAILY insulin aspart U-100 100 unit/mL (3 mL) insulin pen See Rx Instructions .ROUTE .COMPLEX Rx Instructions: INJECT SUBCUTANEOUSLY THREE TIMES A DAY PER SLIDING SCALE: 7-150=0U, 151-200=2U,201-250=3U, 251-300=5U, 301-350=7U, 351-400=10U budesonide-formoterol 160-4.5 mcg/actuation HFA aerosol inhaler 1 puff INHALATION DAILY Changed insulin glargine [Basaglar KwikPen U-100 Insulin] 100 unit/mL (3 mL) insulin pen 50 unit SUBCUT BID Qty: 3 0RF Held methocarbamol 750 mg tablet 750 mg PO DAILY Hold Instructions: see pcp amlodipine 5 mg tablet 5 mg PO DAILY Hold Instructions: see pcp Discontinued propranolol 60 mg capsule,extended release 24 hr 60 mg PO DAILY Qty: 90 2RF Discharge Orders: Discharge Order (Routine); Ordered 07/19/24 Ordered By: Yolanda Downey Other Ambulatory Orders: DME: BIPAP (Order) Location: None Selected Ordered By: Cristy Perez DME: Oxygen (Order) Location: None Selected Ordered By: Yolanda Downey DME: Walker (Order) Location: None Selected Ordered By: Yolanda Downey Sleep Study W Sleep Stage (Routine) Timeframe: 1 Day Facility: [facility] Location: [facility] Ordered By: Yolanda Downey Referrals: [facility] [Outside] Génesis Junior FNP [Primary Care Provider] - 07/23/24 11:15 am (BP check, Oxygen check, BMP, review medications and home care needs) Ruben Coyle MD [Physician] - 09/06/24 2:15 pm Charmaine Starks FNP [Nurse Practitioner] - 08/06/24 2:30 pm Discharge Diet: Advance as tolerated Discharge Activity: Use walker/crutches as instructed Patient Instructions: Bumetanide (By mouth), Potassium Chloride (By mouth), Coronary Artery Disease (DC), Sleep Apnea (GEN), COPD (Chronic Obstructive Pulmonary Disease) (DC), Acute Respiratory Failure (GEN), Opioid Safety Discharge Attestations Time Spent in Discharge Care*: less than 30 min Quality Metrics Clinical Quality Measures [ No reported AMI, CVA or VTE this stay] Coding Level of Care Code Acute Code for Chg Fwd Diagnoses Acute respiratory failure with hypoxia and hypercapnia J96.01; J96.02 Acute on chronic diastolic congestive heart failure I50.33 Heart failure chronicity: acute on chronic Heart failure type: diastolic Chronic kidney disease, stage 3b N18.32 Class 3 obesity with alveolar hypoventilation, serious comorbidity, and body mass index (BMI) of 60.0 to 69.9 in adult E66.813; E66.2; Z68.44 Obesity type: with alveolar hypoventilation Serious obesity comorbidity presence: with serious comorbidity Coronary artery disease of [place] artery of [place] heart with stable angina pectoris I25.118 Associated angina: with stable angina Coronary Disease-Associated Artery/Lesion type: [place] artery [place] vs. transplanted heart: [place] heart Anemia due to stage 3b chronic kidney disease N18.32; D63.1 Anemia type: due to chronic kidney disease Chronic kidney disease stage: stage 3 (moderate) Chronic kidney disease stage 3 subtype: stage 3b (GFR 30-44) Diabetes mellitus type 2, insulin dependent E11.9; Z79.4 Primary hypertension I10 Hypertension type: primary hypertension Mixed hyperlipidemia E78.2 Hyperlipidemia type: mixed hyperlipidemia COPD with asthma J44.89 JODI (obstructive sleep apnea) G47.33
--- NOTE | 2024-07-19 10:51 | XR_ITS ---
WS: [id number] Right foot, 3 views, 07/19/2024 Clinical Data: right foot pain Comparison: None. Findings: No fractures or dislocations are seen. No bone destruction or erosion is noted. The joint spaces and soft tissues are normal. There is tarsal osteoarthritis between the first and second metatarsal bases and their respective cuneiforms. 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
[2024-07-19 11:32] LABS: Glucose Point of Care 186 mg/dL (70-110)
--- NOTE | 2024-07-19 11:58 | XR_ITS ---
WS: [email or web address] Right ankle, 3 views, 07/19/2024 Clinical Data: pain Comparison: None. Findings: No fractures or dislocations are seen. The ankle mortise is normal. The talus and calcaneus are unremarkable. There is minimal soft tissue swelling over the medial malleolus. There is vascular calcification. XR/XR ankle RT min 3V* 35222 Impression: 1. Negative for bony abnormality. 2. Minimal swelling over the medial malleolus.
[2024-07-19] MEDS: insulin lispro 100 unit/1 mL SUBCUT (13:52)
--- NOTE | 2024-07-19 16:35 | PC.NURSE ---
Patient discharged to home. Instruction provided regarding follow up needs, new medications with changes and chf management. Patient has scale supplied prior to discharge. Patient received new medications via med-to-beds. Patient taken by wheelchair to private vehicle. Patient denies pain or needs. Expressed thanks. No distress observed.
== END 2024-07-19 16:38 | disposition home or self-care (01) | DRG 291 ==
LOC: ER 12:12 → CSU 13:01
PROVIDERS: Admitting Provider Hospitalist; Emergency Provider Physician Assistant; PCP Nurse Practitioner; Visit Provider Internal Medicine
DX: I13.0 Hypertensive heart and chronic kidney disease with heart failure and stage 1 through stage 4 chronic kidney disease, or unspecified chronic kidney disease (principal); I50.33 Acute on chronic diastolic (congestive) heart failure; J96.02 Acute respiratory failure with hypercapnia; J96.01 Acute respiratory failure with hypoxia; E66.2 Morbid (severe) obesity with alveolar hypoventilation; Z68.43 Body mass index [BMI] 50.0-59.9, adult; E87.20 Acidosis, unspecified; N18.32 Chronic kidney disease, stage 3b; E11.22 Type 2 diabetes mellitus with diabetic chronic kidney disease; I25.10 Atherosclerotic heart disease of native coronary artery without angina pectoris; Z95.5 Presence of coronary angioplasty implant and graft; D63.1 Anemia in chronic kidney disease; E78.2 Mixed hyperlipidemia; J44.9 Chronic obstructive pulmonary disease, unspecified; Z79.82 Long term (current) use of aspirin; Z79.4 Long term (current) use of insulin; F32.A Depression, unspecified; I25.2 Old myocardial infarction; G89.29 Other chronic pain; M54.9 Dorsalgia, unspecified; Z87.891 Personal history of nicotine dependence; Z91.81 History of falling
CPT/HCPCS: 36415; 36416; 36600; 51702; 71045; 73610; 73630; 80048; 80051; 80053; 80061; 81001; 82009; 82330; 82803; 82805; 82962; 83036; 83540; 83550; 83735; 83880; 84100; 84145; 84443; 84484; 85025; 85610; 85730; 93005; 93306; 94640; 94660; 94664; 94760; 94762; 96372; 96374; 96375; 96376; 97161; 97530; 99291; A9270; J1650; J1815; J1940; J7626; J9999

== ENCOUNTER → 2024-07-23 11:27 | Outpatient (BNVA) | payer MEDICARE, SELFPAY | PROVIDERS: PCP Nurse Practitioner; Visit Provider Nurse Practitioner | DX: I10 Essential (primary) hypertension (principal); I25.118 Atherosclerotic heart disease of native coronary artery with other forms of angina pectoris | CPT/HCPCS: 80053 ==

== ENCOUNTER → 2024-08-10 10:38 | Outpatient (BNVA) | payer MEDICARE, SELFPAY | PROVIDERS: PCP Nurse Practitioner; Referring Provider Nurse Practitioner; Visit Provider Nurse Practitioner | DX: I10 Essential (primary) hypertension (principal); N18.32 Chronic kidney disease, stage 3b | CPT/HCPCS: 80053; 82306 ==

== ENCOUNTER → 2024-08-20 11:40 | Outpatient (BNVA) | payer MEDICARE, SELFPAY | PROVIDERS: PCP Nurse Practitioner; Visit Provider Nurse Practitioner | DX: N18.32 Chronic kidney disease, stage 3b (principal) | CPT/HCPCS: 80048; 83880 ==

== ENCOUNTER → 2024-09-06 14:26 | Outpatient (BNVA) | payer MEDICARE, SELFPAY | PROVIDERS: PCP Nurse Practitioner; Visit Provider Internal Medicine Cardiovascular Disease | DX: I25.10 Atherosclerotic heart disease of native coronary artery without angina pectoris (principal); N18.32 Chronic kidney disease, stage 3b; I13.0 Hypertensive heart and chronic kidney disease with heart failure and stage 1 through stage 4 chronic kidney disease, or unspecified chronic kidney disease; E11.22 Type 2 diabetes mellitus with diabetic chronic kidney disease; I50.31 Acute diastolic (congestive) heart failure; Z79.4 Long term (current) use of insulin; E78.2 Mixed hyperlipidemia; E66.813 Obesity, class 3; E66.2 Morbid (severe) obesity with alveolar hypoventilation; Z68.44 Body mass index [BMI] 60.0-69.9, adult; D63.1 Anemia in chronic kidney disease; Z87.891 Personal history of nicotine dependence | CPT/HCPCS: 36415; 80048; 83880; 99204 ==

== ENCOUNTER → 2024-09-12 14:37 | Outpatient (BNVA) | payer MEDICARE, SELFPAY | PROVIDERS: PCP Nurse Practitioner; Visit Provider Nurse Practitioner | DX: E11.9 Type 2 diabetes mellitus without complications (principal); Z79.4 Long term (current) use of insulin | CPT/HCPCS: 80053; 83036 ==

== ENCOUNTER 2024-10-02 15:29 | Outpatient (CLI) | payer MEDICARE, SELFPAY ==
--- NOTE | 2024-10-02 15:00 | US_ITS ---
WS: [id number] RENAL ULTRASOUND HISTORY: E11.9 - Type 2 diabetes mellitus without complications COMPARISON: 03/16/2019 TECHNIQUE: 2-D and color Doppler imaging of the kidney submitted. Technically very limited and difficult evaluation of the kidneys due to body habitus. Right kidney: 10.3 cm x 5.7 cm x 5.0 cm. Cortex: 1.3 cm Poorly visualized kidney. Kidney appears normal size. Additional details cannot be obtained from this exam. It would be difficult to exclude hydronephrosis or mass. Left kidney: 11.5 cm x 6.1 cm x 4.6 cm. Cortex: 1.3 cm Extremely limited evaluation of the LEFT kidney. It would be difficult to exclude hydronephrosis or mass. Aorta: Normal. Urinary Bladder: Normal distention. US/US renal BI* [id number] IMPRESSION: 1. Technically very limited evaluation of the kidneys. 2. No hydronephrosis. Otherwise suboptimal evaluation of the kidneys.
== END 2024-10-02 15:30 | disposition home or self-care (01) ==
LOC: RAD 15:30
PROVIDERS: PCP Nurse Practitioner; Visit Provider Nurse Practitioner
DX: E11.9 Type 2 diabetes mellitus without complications (principal); Z79.4 Long term (current) use of insulin; N18.32 Chronic kidney disease, stage 3b
CPT/HCPCS: 76770

== ENCOUNTER 2024-10-05 09:42 | Outpatient (CLI) | payer MEDICARE, SELFPAY ==
--- NOTE | 2024-10-05 | ECG_ITS ---
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 The perfusion scan will be documented separately. DATA: Baseline heart rate was 79 beats per minute. Baseline blood pressure was 129/66 millimeters of mercury. Target heart rate was 151. Maximum heart rate achieved was 107. which was 70 % of the predicted target heart rate. Maximum blood pressure was 134/68 millimeters of mercury. The reason for ending the test was completion of the protocol. The patient did not experience any symptoms. ELECTROCARDIOGRAM: BASELINE: Sinus rhythm. Normal axis. Otherwise, no ST-T changes suggestive of ischemia noted. No arrhythmia noted. EXERCISE: After Lexiscan injection, no ST-T changes suggestive of ischemic noted. No arrhythmia noted. CONCLUSION: Please note due to baseline abnormality of the EKG specificity and sensitivity of the EKG portion of LexiScan MIBI stress test will be low 1. EKG not suggestive of ischemia 2. Lexiscan injection unremarkable. 3. Perfusion scan will be documented separately. Electronically Signed On 10-07-2024 20:11:54 CDT by JESSICA ROBINS [email or web address]
[2024-10-05 10:03] VITALS: BMI 57.8
--- NOTE | 2024-10-05 10:06 | NMCV_ITS ---
NM caity perf SPECT r/s* [id number] Yuridia Whitmore Age: 69 Gender: F : 1955 Exam Date: 10/05/2024 11:06 Ordering Phys: Ruben Coyle MD ([email or web address]) Technologist: MIKI Carter Exam Location: [facility] Indications: CP STRESS TEST Please see separate stress test report in [facility] for full findings IMAGE PROTOCOL Rest/Stress 1 Lexiscan Day Radiopharmaceutical Dose (mCi) Administration Site Administered by Rest: Tc-99m 11 IV MIKI Carter Sestamibi Stress:Tc-99m 33 IV MIKI Purcell Sestamibi Rest: 05-Oct-2024 60 Discovery 630 Stress: 05-Oct-2024 30 Discovery 630 0.4mg Lexiscan. Supine position only as patient was unable to lay prone. Prone imaging was attempted, patient had to stop senior living through. Was unable to lay on her stomach long enough to complete. SPECT RESULTS Technical Quality: Excellent Raw Data Analysis: Normal Image Corrections: No attenuation or motion correction applied Summed Stress Score: 0 Summed Rest Score: 0 Summed Difference Score: 0 PERFUSION FINDINGS SPECT images demonstrate homogeneous tracer distribution throughout the myocardium. FUNCTIONAL RESULTS (calculated via Gated SPECT) Stress Image LV EF (%): 64 Stress EDV (mL):81 TID: 1 Stress ESV (mL):29 FUNCTIONAL FINDINGS: There is normal left ventricular systolic function. IMPRESSIONS 1. Normal myocardial perfusion imaging with no evidence of ischemia 2. LV systolic function is normal Rob Tamez MD (Electronically Signed) Final Date: 09 October 2024 12:39 S
[2024-10-05] MEDS: regadenoson 0.4 Mg/5 ml Syringe IVP (11:39)
[2024-10-05 11:54] VITALS: BP 132/42; PULSE 87
== END 2024-10-05 09:43 | disposition home or self-care (01) ==
LOC: CDL 09:46
PROVIDERS: PCP Nurse Practitioner; Visit Provider Internal Medicine Cardiovascular Disease
DX: R07.9 Chest pain, unspecified (principal)
CPT/HCPCS: 36415; 78452; 93017; 96374; A9500; J2785

== ENCOUNTER 2024-10-10 20:00 | Outpatient (CLI) | payer MEDICARE, SELFPAY | END 2024-10-10 20:01 | disposition home or self-care (01) | LOC: SLEEP 10-11 23:14 | PROVIDERS: PCP Nurse Practitioner; Visit Provider Internal Medicine Pulmonary Disease | DX: E11.9 Type 2 diabetes mellitus without complications (principal); G47.33 Obstructive sleep apnea (adult) (pediatric); Z79.4 Long term (current) use of insulin; E78.2 Mixed hyperlipidemia | CPT/HCPCS: 95811; 99204 ==

== ENCOUNTER → 2024-10-22 11:16 | Outpatient (BNVA) | payer MEDICARE, SELFPAY | PROVIDERS: PCP Nurse Practitioner; Visit Provider Nurse Practitioner | DX: N18.32 Chronic kidney disease, stage 3b (principal) | CPT/HCPCS: 80053 ==

== ENCOUNTER → 2024-11-07 13:19 | Outpatient (BNVA) | payer MEDICARE, SELFPAY | PROVIDERS: PCP Nurse Practitioner; Visit Provider Nurse Practitioner | DX: N18.32 Chronic kidney disease, stage 3b (principal) | CPT/HCPCS: 80053; 80069; 82043; 82306; 82542; 85025 ==

== ENCOUNTER → 2024-11-13 14:34 | Outpatient (BNVA) | payer MEDICARE, SELFPAY | PROVIDERS: PCP Nurse Practitioner; Referring Provider Nurse Practitioner; Visit Provider Nurse Practitioner | DX: N18.32 Chronic kidney disease, stage 3b (principal) | CPT/HCPCS: 82310; 83970 ==

== ENCOUNTER → 2025-01-31 14:46 | Outpatient (BNVA) | payer MEDICARE, SELFPAY | PROVIDERS: PCP Nurse Practitioner; Visit Provider Nurse Practitioner | DX: N18.32 Chronic kidney disease, stage 3b (principal); E11.9 Type 2 diabetes mellitus without complications; Z79.4 Long term (current) use of insulin; R10.9 Unspecified abdominal pain; R30.0 Dysuria | CPT/HCPCS: 80048; 81000; 83036; 87086 ==

== ENCOUNTER → 2025-02-06 10:37 | Outpatient (BNVA) | payer MEDICARE, SELFPAY | PROVIDERS: PCP Nurse Practitioner; Referring Provider Nurse Practitioner; Visit Provider Nurse Practitioner | DX: N18.32 Chronic kidney disease, stage 3b (principal) | CPT/HCPCS: 80069; 82043; 82306; 82310; 83970; 85025 ==

== ENCOUNTER 2025-02-18 13:05 | Emergency (ER) | payer MEDICARE, SELFPAY ==
--- NOTE | 2025-02-18 12:39 | XRR_ITS ---
PROCEDURE INFORMATION: Exam: XR Chest Exam date and time: 02/18/2025 1:22 PM Age: 69 years old Clinical indication: Other: Weakness TECHNIQUE: Imaging protocol: Radiologic exam of the chest. Views: 1 view. COMPARISON: CR XR chest 1V portable [id number] 07/16/2024 11:28 AM FINDINGS: Lungs: Unremarkable. No consolidation. Pleural spaces: Unremarkable. No pleural effusion. No pneumothorax. Heart/Mediastinum: The heart is borderline enlarged. There is calcified plaque involving the aorta. Bones/joints: Unremarkable. XR/XR chest 1V portable [id number] IMPRESSION: 1. No acute findings.
[2025-02-18 13:18] VITALS: BP 147/69; PULSE 72; RESP 18; TEMP 36.8; O2SAT 94; BMI 55.8
--- NOTE | 2025-02-18 13:23 | ECG_ITS ---
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 Measurements Intervals [place] Rate: 76 P: 96 HI: 207 QRS: -16 QRSD: 85 T: 61 QT: 363 QTc: 410 Interpretive Statements SINUS RHYTHM MODERATE VOLTAGE CRITERIA FOR LVH, CONSIDER NORMAL VARIANT [MEETS CRITERIA IN ONE OF: R(aVL), S(V1), R(V5), R(V5/V6)+S(V1)] POSSIBLE ANTERIOR MYOCARDIAL INFARCTION , OF INDETERMINATE AGE [30 ms Q WAVE IN V3/V4, OR R < 0.2 mV IN V4] Compared to ECG 07/16/2024 22:06:38 Sinus bradycardia no longer present First degree AV block no longer present Myocardial infarct finding still present Electronically Signed On 02-19-2025 19:20:47 CDT by Ruben Coyle M.D. [id number]
[2025-02-18 13:47] LABS: Hematocrit 40.4 % (36-47); Hemoglobin 12.60 g/dL (11.27-16.99); Mean Corpuscular HGB Conc 31.2 g/dL (30-55); Mean Corpuscular Hemoglobin 29.9 pg (27-33); Mean Corpuscular Volume 95.7 fl (85-98); Nucleated Red Blood Cells % 0 %; Platelet Count 196 10^3/cmm (157-399); Red Blood Count 4.22 10^6/uL (3.85-5.65); White Blood Count 11.78 10^3/uL (3.29-11.43)
[2025-02-18 14:05] LABS: Lactic Sepsis W/Reflex 1.1 mmol/L (0.5-2.2)
[2025-02-18 14:06] LABS: Troponin(5th) Baseline 24 ng/L (0-10)
[2025-02-18 14:09] LABS: Alanine Aminotransferase 20 U/L (0-33); Albumin Level 3.9 g/dL (3.5-5.2); Alkaline Phosphatase 112 U/L (35-105); Anion Gap 13.3 (5-19); Aspartate Amino Transferase 22 U/L (0-32); Blood Urea Nitrogen 31 mg/dL (8-23); Calcium 8.7 mg/dL (8.5-10.5); Carbon Dioxide 29 mmol/L (22-29); Chloride 101 mmol/L (98-107); Creatinine Clr Calc Pharmacy 60.3430; Globulin 2.8 g/dL (1.3-4.6); Glucose 171 mg/dL (65-115); Osmolality Calculated 297 mOsm/kg (285-295); Potassium 5.3 mmol/L (3.5-5.1); Sodium 138 mmol/L (136-145); Total Protein 6.7 g/dL (6.6-8.7)
--- NOTE | 2025-02-18 15:39 | ECG_ITS ---
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 Measurements Intervals [place] Rate: 67 P: -78 [place]: 184 QRS: -10 QRSD: 89 T: 67 QT: 381 QTc: 403 Interpretive Statements SINUS RHYTHM WITH SINUS ARRHYTHMIA MINIMAL VOLTAGE CRITERIA FOR LVH, CONSIDER NORMAL VARIANT [MEETS CRITERIA IN ONE OF: R(aVL), S(V1), R(V5), R(V5/V6)+S(V1)] POSSIBLE ANTERIOR MYOCARDIAL INFARCTION , OF INDETERMINATE AGE [30 ms Q WAVE IN V3/V4, OR R < 0.2 mV IN V4] Compared to ECG 02/18/2025 13:23:50 No significant changes Electronically Signed On 02-19-2025 19:40:06 CDT by Ruben Coyle M.D. [email or web address]
[2025-02-18 15:55] VITALS: BP 160/67; O2SAT 90
[2025-02-18 16:03] VITALS: O2SAT 95
[2025-02-18 16:25] LABS: Troponin 5 2HR 25.15 ng/L (0-10); Troponin 5 2HR Delta 1.15 ABS# (0-10)
[2025-02-18] MEDS: diphenhydrAMINE 50 mg/mL SDV 1mL IVP (16:41)
[2025-02-18 16:57] VITALS: BP 146/70; O2SAT 93
[2025-02-18 17:00] LABS: Glucose Urine UA 3+ (Normal); Nitrate Urine Negative (Negative); Specific Gravity, Urine 1.022 (1.005-1.030)
[2025-02-18 17:04] VITALS: BP 146/70; O2SAT 96
[2025-02-18 17:08] LABS: Respiratory Syncytial Virus Ce NEGATIVE (Negative); SARS-CoV-2 PCR NEGATIVE (Negative)
[2025-02-18 18:30] VITALS: BP 148/67; PULSE 81; O2SAT 91
--- NOTE | 2025-02-18 21:41 | W.ED.WEAKNES ---
HPI - Weakness General: Chief complaint: Weakness Stated complaint: weakness Time Seen by Provider: 02/18/25 15:53 History of Present Illness: 69 yo F presents with generalized weakness and a widespread painful, moist rash over the chest and intertriginous areas, described as shiny with satellite lesions consistent with yeast. Pt reports a bad URI ~1 month ago with brown/yellow sputum that improved; currently has head-cold symptoms without significant productive cough. Denies ability to assess odor of rash. Reports recurrent episodes of higher K in the past. Notes she is taking Jardiance and wonders if it contributes to weakness. States she has been hydrating. ROS notable for weakness and upper respiratory congestion; denies severe cough currently. Prior glucose reportedly as high as 350; today 171. Blood cultures were obtained prior to physician arrival. CXR reportedly clear. Pt agreeable to evaluation for possible UTI; UA not yet collected. Related Data Home Medications ?Medication ?Instructions ?Recorded ?Confirmed atorvastatin 40 mg tablet 1 tab PO DAILY 01/05/23 02/13/25 aspirin 81 mg tablet,delayed 81 mg PO DAILY 02/15/23 02/13/25 release methocarbamol 750 mg tablet 750 mg PO DAILY 02/15/23 02/13/25 Held on 07/19/24. Instructions: see pcp amlodipine 5 mg tablet 5 mg PO DAILY 07/16/24 02/13/25 Held on 07/19/24. Instructions: see pcp budesonide-formoterol HFA 160 1 puff inhalation DAILY 07/16/24 02/13/25 mcg-4.5 mcg/actuation aerosol inhaler empagliflozin 25 mg tablet 25 mg PO DAILY 01/31/25 02/13/25 (Jardiance) Previous Rx's ?Medication ?Instructions ?Recorded bumetanide 1 mg tablet 1 mg PO DAILY 90 days #90 tabs 08/10/24 blood sugar diagnostic #100 ea 08/20/24 carvedilol 3.125 mg tablet 3.125 mg PO BID #60 tabs 09/06/24 gabapentin 100 mg capsule 100 mg PO DAILY #90 caps 09/14/24 blood-glucose sensor (Dexcom G7 #9 ea 10/10/24 Sensor device) blood-glucose,book critic,cont #1 ea 10/10/24 (Dexcom G7 [employer] Altitude [employer]) insulin glargine 100 unit/mL (3 80 unit (0.8 mL) SUBCUT QAM 90 10/10/24 mL) subcutaneous pen (Lantus days #72 mL Solostar U-100 Insulin) isosorbide dinitrate 20 mg tablet 20 mg PO DAILY #30 tabs 12/13/24 pen needle, diabetic 31 gauge x #1,200 ea 01/18/25/ (TechLITE Pen Needle) fluconazole 150 mg tablet 150 mg PO DAILY 5 days #5 tabs 02/18/25 Allergies Allergy/AdvReac Type Severity Reaction Status Date / Time Phenothiazines Allergy Unknown Unknown Verified 02/13/25 08:20 ketorolac (From Toradol) Allergy Shuts down Verified 02/13/25 08:20 Kidneys butorphanol (From Stadol) AdvReac ADR-Halluci Verified 02/13/25 08:20 nating [facility] PFSH: Medical History (Updated 02/18/25 @ 17:18 by David Frias DO) COPD with asthma remote tobacco use History of sleep study 12/2016 Bipap recommended JODI (obstructive sleep apnea) intolerant of bipap History of echocardiogram 06/2024 [facility] in [place], [place], EF 60%, grade 1 diastolic dysfunction, no wall motion abnormalities, RAP 5-10mmHg, no /MS, mild TR Kidney stones Diabetes mellitus type 2, insulin dependent Chronic kidney disease, stage 3b Morbid obesity BMI 60 Hyperlipidemia Depression HTN (hypertension) CAD (coronary artery disease) LAD and RCA stents, angioplasty to 1st diagonal [place] [address] Horvath Chronic back pain Surgical History History of colonoscopy 2018 History of D&C 2013 History of cataract surgery History of carpal tunnel surgery of right wrist History of appendectomy Hx of cholecystectomy History of heart artery stent Status post stenting x2 in 2017 Family History Other CAD (coronary artery disease) Hypertension Social History Smoking and tobacco/nicotine status: unknown if used tobacco/nicotine Alcohol intake: never Substance/Drug Use: never Physical Exam Const: COMMON NORMALS: no acute distress, patient oriented x3 and alert HENMT: COMMON NORMALS: normocephalic and atraumatic HEAD & SCALP: normocephalic and atraumatic Eye: COMMON NORMALS: Equal, round and reactive pupils present, EOMs intact bilaterally and no scleral icterus PUPIL: Yes Equal, round and reactive pupils present Resp: COMMON NORMALS: normal respiratory effort and No retractions Cardio: COMMON NORMALS: regular rate, regular rhythm and No murmurs present (Cardio) RATE: regular rate RHYTHM: regular rhythm GI: COMMON NORMALS: Normal to inspection, nondistended, normoactive bowel sounds present, Soft to palpation and non-tender PALPATION: Yes Soft to palpation Neuro: COMMON NORMALS: patient oriented x3 SENSORIUM/ORIENTATION: Yes alert Skin: OTHER: Shiny, erythematous, mildly raised rash on chest and intertriginous regions with yeast-like appearance. Course Vital Signs: Vital signs: Vital Signs Temperature 98.2 F 02/18/25 13:18 Pulse Rate 81 02/18/25 18:30 Respiratory Rate 18 02/18/25 13:18 Blood Pressure 148/67 02/18/25 18:30 Pulse Oximetry 91 02/18/25 18:30 Oxygen Delivery Me thod Room Air 02/18/25 17:04 MDM - Weakness Medical Decision Making 69 yo F with DM and [unclear] CKD presents with profound weakness and diffuse intertriginous rash consistent with yeast. Recent URI; current head-cold symptoms. Prior glucoses up to 350; today 171. PE: diffuse yeast-like rash of chest and under breasts; otherwise exam normal. Labs: K 5.3, Cr 1.1, glucose 171. Blood cultures obtained. Imaging Results: CXR clear. EK sinus rhythm with sinus arrhythmia, rate 67, QTc 396, no ST elevation/depression, no T-wave inversions. Weakness: consider viral URI and UTI; yeast less likely cause of systemic weakness. Hyperkalemia mild without EKG changes. Rash most consistent with candidal intertrigo, likely exacerbated by hyperglycemia. Plan: Fluconazole PO now and weekly x3; topical antifungal/anti-itch cream; diphenhydramine IV. Nasal swab for respiratory pathogens and UA to eval for UTI; urine via bedside commode per patient preference. Blood cultures pending. Continue hydration. Lab Data 02/18/25 13:35 02/18/25 13:35 Radiology Impressions Chest X-Ray 02/18/25 12:39 IMPRESSION: 1. No acute findings. Laboratory Results WBC 11.78 10^3/uL (3.29-11.43) H 02/18/25 13:35 RBC 4.22 10^6/uL (3.85-5.65) 02/18/25 13:35 Hgb 12.60 g/dL (11.27-16.99) 02/18/25 13:35 Hct 40.4 % (36-47) 02/18/25 13:35 MCV 95.7 fl (85-98) 02/18/25 13:35 MCH 29.9 pg (27-33) 02/18/25 13:35 MCHC 31.2 g/dL (30-55) 02/18/25 13:35 RDW 13.2 % (12.1-15.1) 02/18/25 13:35 Plt Count 196 10^3/cmm (157-399) 02/18/25 13:35 MPV 9.7 fL (7.4-10.4) 02/18/25 13:35 Neut % (Auto) 62.8 % 02/18/25 13:35 Lymph % (Auto) 23.7 % 02/18/25 13:35 [place] % (Auto) 7.9 % 02/18/25 13:35 Eos % (Auto) 4.8 % 02/18/25 13:35 Baso % (Auto) 0.3 % 02/18/25 13:35 Neut # (Auto) 7.40 10^3/uL (1.8-7.7) 02/18/25 13:35 Lymph # (Auto) 2.8 10^3/uL (0.8-4.8) 02/18/25 13:35 [place] # (Auto) 0.9 10^3/uL (0.2-0.9) 02/18/25 13:35 Eos # (Auto) 0.6 10^3/uL (0.0-0.8) 02/18/25 13:35 Baso # (Auto) 0.0 10^3/uL (0.0-0.1) 02/18/25 13:35 Nucleated RBC % (auto) 0 % 02/18/25 13:35 Nucleated RBCs # 0.0 /100WBC 02/18/25 13:35 Sodium 138 mmol/L (136-145) 02/18/25 13:35 Potassium 5.3 mmol/L (3.5-5.1) H 02/18/25 13:35 Chloride 101 mmol/L (98-107) 02/18/25 13:35 Carbon Dioxide 29 mmol/L (22-29) 02/18/25 13:35 Anion Gap 13.3 (5-19) 02/18/25 13:35 BUN 31 mg/dL (8-23) H 02/18/25 13:35 Creatinine 1.1 mg/dL (0.5-0.9) H 02/18/25 13:35 GFR Calculation 49.2 mL/min (90-130) L 02/18/25 13:35 Glucose 171 mg/dL (65-115) H 02/18/25 13:35 Calculated Osmolality 297 mOsm/kg (285-295) H 02/18/25 13:35 Lactic Acid 1.1 mmol/L (0.5-2.2) 02/18/25 13:35 Calcium 8.7 mg/dL (8.5-10.5) 02/18/25 13:35 Total Bilirubin 0.5 mg/dL (0.15-1.2) 02/18/25 13:35 AST 22 U/L (0-32) 02/18/25 13:35 ALT 20 U/L (0-33) 02/18/25 13:35 Alkaline Phosphatase 112 U/L (35-105) H 02/18/25 13:35 Troponin T Baseline 24 ng/L (0-10) H 02/18/25 13:35 Troponin T 120 Minute 25.15 ng/L (0-10) H 02/18/25 15:28 Delta Troponin T 1.15 ABS# (0-10) 02/18/25 15:28 C-Reactive Protein 29.1 mg/L (0.0-4.9) H 02/18/25 13:35 Total Protein 6.7 g/dL (6.6-8.7) 02/18/25 13:35 Albumin 3.9 g/dL (3.5-5.2) 02/18/25 13:35 Globulin 2.8 g/dL (1.3-4.6) 02/18/25 13:35 Urine Color Yellow (Yellow) 02/18/25 16:52 Urine Appearance Clear (CLEAR) 02/18/25 16:52 Urine pH 5.5 (5-7) 02/18/25 16:52 Ur Specific [place] 1.022 (1.005-1.030) 02/18/25 16:52 Urine Protein 2+ (Negative) A 02/18/25 16:52 Urine Glucose (UA) 3+ (Normal) H 02/18/25 16:52 Urine Ketones Negative (Negative) 02/18/25 16:52 Urine Blood Negative (Negative) 02/18/25 16:52 Urine Nitrate Negative (Negative) 02/18/25 16:52 Urine Bilirubin Negative (Negative) 02/18/25 16:52 Urine Urobilinogen 1.0 mg/dL (Negative) 02/18/25 16:52 Ur Leukocyte Esterase Negative (Negative) 02/18/25 16:52 Urine RBC 0-4 /hpf (0-2) H 02/18/25 16:52 Urine WBC 5-10 /hpf (0-5) H 02/18/25 16:52 Ur Squamous Epith Cells 5-10 /hpf (0-5) H 02/18/25 16:52 Amorphous Sediment Not Reportable 02/18/25 16:52 Urine Bacteria None /hpf (NONE) 02/18/25 16:52 Urine Mucus None /hpf 02/18/25 16:52 Influenza A (PCR) Negative (Negative) 02/18/25 15:57 Influenza Type B (PCR) Negative (Negative) 02/18/25 15:57 RSV (PCR) Negative (Negative) 02/18/25 15:57 SARS-CoV-2 (PCR) Negative (Negative) 02/18/25 15:57 All radiology interpretation(s) finalized by discharge Discharge Plan Discharge Patient Disposition: Home Clinical Impression: Yeast infection of the skin Condition: Stable Prescriptions: New fluconazole 150 mg tablet 150 mg PO DAILY 5 Days Qty: 5 0RF Rx Instructions: administer on day 1 of therapy No Action methocarbamol 750 mg tablet 750 mg PO DAILY aspirin 81 mg tablet,delayed release (DR/EC) 81 mg PO DAILY Jardiance 25 mg tablet 25 mg PO DAILY atorvastatin 40 mg tablet 1 tab PO DAILY carvedilol 3.125 mg tablet 3.125 mg PO BID Qty: 60 5RF Rx Instructions: must administer with a meal/food (DME) blood sugar diagnostic Strip See Rx Instructions .Route Qty: 100 4RF Rx Instructions: Test blood glucose four times a day bumetanide 1 mg tablet 1 mg PO DAILY 90 Days Qty: 90 2RF insulin glargine [Lantus Solostar U-100 Insulin] 100 unit/mL (3 mL) insulin pen 80 unit SUBCUT QAM 90 Days Qty: 72 1RF (DME) Dexcom G7 Sensor Device See Rx Instructions .ROUTE .MEDSUPPLY Qty: 9 2RF Rx Instructions: change every 10 days (DME) Dexcom G7 Low Altitude [employer] Misc See Rx Instructions .ROUTE .MEDSUPPLY Qty: 1 0RF Rx Instructions: As directed gabapentin 100 mg capsule 100 mg PO DAILY Qty: 90 2RF isosorbide dinitrate 20 mg tablet 20 mg PO DAILY Qty: 30 6RF (DME) pen needle, diabetic [TechLITE Pen Needle] 31 gauge x 3/16 needle See Rx Instructions .ROUTE .COMPLEX Qty: 1200 11RF Dose Instruction: USE TO ADMINISTER INSULIN DAILY Rx Instructions: USE TO ADMINISTER INSULIN DAILY amlodipine 5 mg tablet 5 mg PO DAILY budesonide-formoterol 160-4.5 mcg/actuation HFA aerosol inhaler 1 puff INHALATION DAILY Discharge Orders: Discharge ED (Routine); Ordered 02/18/25 Ordered By: David Frias Referrals: Génesis Junior FNP [Primary Care Provider, Nurse Practitioner] Discharge Diet: Usual diet Discharge Activity: Increase activity as tolerated Patient Instructions: Skin Yeast Infection (ED), Patient Portal & Melba Instructions Activity Restrictions/Additional Instructions: Your blood tests, urinalysis, EKG, chest x-ray are reassuring with no other signs of infections requiring antibiotics or other interventions. Please take the Diflucan and use Benadryl as needed for itching. Print Language: Spanish Coding Level of Care Code ED Secondary Teacher for Jodi Bah
== END 2025-02-18 19:30 | disposition home or self-care (01) ==
PROVIDERS: Emergency Medicine; Emergency Provider Student in an Organized Health Care Education/Training Program; PCP Nurse Practitioner
DX: B37.2 Candidiasis of skin and nail (principal); Z79.82 Long term (current) use of aspirin; Z79.4 Long term (current) use of insulin; Z11.52 Encounter for screening for COVID-19; J44.9 Chronic obstructive pulmonary disease, unspecified; I25.10 Atherosclerotic heart disease of native coronary artery without angina pectoris; E11.22 Type 2 diabetes mellitus with diabetic chronic kidney disease; I12.9 Hypertensive chronic kidney disease with stage 1 through stage 4 chronic kidney disease, or unspecified chronic kidney disease; N18.32 Chronic kidney disease, stage 3b
CPT/HCPCS: 36415; 71045; 80053; 81001; 83605; 84484; 85025; 86140; 87040; 87637; 93005; 96374; 99285; J1200; J9999

== ENCOUNTER → 2025-02-26 09:10 | Outpatient (BNVA) | payer MEDICARE, SELFPAY | PROVIDERS: PCP Nurse Practitioner; Visit Provider Internal Medicine Endocrinology, Diabetes & Metabolism | DX: E11.9 Type 2 diabetes mellitus without complications (principal); Z79.4 Long term (current) use of insulin; E78.2 Mixed hyperlipidemia | CPT/HCPCS: 99214 ==

== ENCOUNTER → 2025-03-05 10:11 | Outpatient (BNVA) | payer MEDICARE, SELFPAY | PROVIDERS: PCP Nurse Practitioner; Visit Provider Internal Medicine Cardiovascular Disease | DX: I25.10 Atherosclerotic heart disease of native coronary artery without angina pectoris (principal); E78.5 Hyperlipidemia, unspecified; D64.9 Anemia, unspecified; E66.813 Obesity, class 3; Z68.43 Body mass index [BMI] 50.0-59.9, adult; K21.9 Gastro-esophageal reflux disease without esophagitis; I13.0 Hypertensive heart and chronic kidney disease with heart failure and stage 1 through stage 4 chronic kidney disease, or unspecified chronic kidney disease; E11.22 Type 2 diabetes mellitus with diabetic chronic kidney disease; N18.32 Chronic kidney disease, stage 3b; I50.31 Acute diastolic (congestive) heart failure; Z79.4 Long term (current) use of insulin; Z95.5 Presence of coronary angioplasty implant and graft; Z87.891 Personal history of nicotine dependence | CPT/HCPCS: 99214 ==